=== PATIENT | male | born 1955 | race Caucasian/White ===

== ENCOUNTER → 2019-07-19 11:52 | Outpatient (BNVA) | payer MEDICARE, SELFPAY | PROVIDERS: Family Provider Electrodiagnostic Medicine; PCP Electrodiagnostic Medicine; Visit Provider Nurse Practitioner | DX: F33.0 Major depressive disorder, recurrent, mild (principal) | CPT/HCPCS: 99214 ==

== ENCOUNTER → 2019-08-25 07:41 | Outpatient (BNVA) | payer MEDICARE, SELFPAY | PROVIDERS: Family Provider Electrodiagnostic Medicine; PCP Electrodiagnostic Medicine; Visit Provider Nurse Practitioner | DX: F33.0 Major depressive disorder, recurrent, mild (principal) | CPT/HCPCS: 99214 ==

== ENCOUNTER → 2019-12-05 08:34 | Outpatient (BNVA) | payer MEDICARE, SELFPAY | PROVIDERS: Family Provider Electrodiagnostic Medicine; PCP Electrodiagnostic Medicine; Visit Provider Nurse Practitioner | DX: F33.0 Major depressive disorder, recurrent, mild (principal) | CPT/HCPCS: 99214 ==

== ENCOUNTER 2019-12-21 08:22 | Emergency (ER) | payer MEDICARE, SELFPAY ==
[2019-12-21] VITALS (8 sets, daily range): BP systolic 121–163; BP diastolic 68–88; PULSE 85–109; RESP 18–22; TEMP 37.4; O2SAT 91–100; BMI 34.2
--- NOTE | 2019-12-21 08:29 | ECG_ITS ---
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 Measurements Intervals [place] Rate: 87 P: [place]: -1 QRS: 30 QRSD: 142 T: 84 QT: 368 QTc: 444 Interpretive Statements UNCERTAIN REGULAR RHYTHM RIGHT BUNDLE BRANCH BLOCK [120+ ms QRS DURATION, UPRIGHT V1, 40+ ms S IN I/aVL/V4/V5/V6] Compared to ECG 12/07/2018 13:12:47 Sinus rhythm no longer present Ventricular premature complex(es) no longer present Electronically Signed On 12-21-2019 20:19:36 CDT by Moreno Mca M.D. [email or web address]
--- NOTE | 2019-12-21 08:29 | XR_ITS ---
WS: [id number] EXAM: AP CHEST: PORTABLE UPRIGHT DATE OF EXAM: 12/21/2019, 0832 hours COMPARISON: Chest x-ray from 10/03/2018 HISTORY: Patient is 64 years old with shortness of breath for the last day.. FINDINGS: The cardiac silhouette is stable and within normal limits. The mediastinal contours are similar. The pulmonary vascularity is normal. Chronic lung changes are demonstrated. Slight peribronchial cu ffing suggesting chronic bronchitis is seen bilaterally. Lungs are clear of consolidation. There is no effusion or pneumothorax. No acute bony abnormality is seen. XR/XR chest 1V portable [id number] IMPRESSION: Slight chronic lung changes seen. No consolidating infiltrate.
[2019-12-21 08:38] LABS: Basophils % 0.2 %; Eosinophils # 0.1 10^3/uL (0.0-0.8); Eosinophils % 0.7 %; Hematocrit 39.4 % (42.0-52.0); Hemoglobin 12.3 g/dL (11.7-16.6); Lymphocytes # 0.3 10^3/uL (0.8-4.8); Lymphocytes % 1.9 %; Mean Corpuscular HGB Conc 31.2 g/dL (30.0-36.0); Mean Corpuscular Hemoglobin 29.2 pg (28.0-34.0); Mean Corpuscular Volume 93.6 fL (80-94); Mean Platelet Volume 9.7 fL (7.4-10.4); Monocytes # 0.4 10^3/uL (0.2-0.9); Neutrophils # 12.27 10^3/uL (1.8-7.7); Nucleated Red Blood Cells % 0 %; Platelet Count 321 10^3/cmm (130-400); Red Blood Count 4.21 10^6/uL (4.1-5.3); Red Cell Distribution Width 12.4 % (12.1-15.1); White Blood Count 13.1 10^3/uL (4.0-10.0)
[2019-12-21 09:01] LABS: Alanine Aminotransferase 13 U/L (0-41); Albumin Level 4.5 g/dL (3.5-5.2); Alkaline Phosphatase 50 IU/L (40-130); Anion Gap 17.3 (5-19); Aspartate Amino Transferase 13 U/L (0-40); Blood Urea Nitrogen 23 mg/dL (8-23); Calcium 9.1 mg/dL (8.5-10.5); Carbon Dioxide 26 mmol/L (22-29); Chloride 94 mmol/L (98-107); Globulin 3.2 g/dL (1.3-4.6); Glomerular Filtration Rate 51.4 mL/min (90-130); Glucose 288 mg/dL (65-115); Osmolality Calculated 283 mOsm/kg (285-295); Potassium 4.3 mmol/L (3.5-5.1); Sodium 133 mmol/L (136-145); Total Bilirubin 0.7 mg/dL (0.15-1.2); Total Protein 7.7 g/dL (6.6-8.7)
--- NOTE | 2019-12-21 09:22 | ED_ITS ---
HPI - SOB/Dyspnea General: Chief Complaint: Shortness of Breath/Dyspnea Stated Complaint: SHORTNESS OF BREATH Time Seen by Provider: 12/21/19 08:28 History of Present Illness: HPI Narrative: 84-year-old male presents emergency room with complaint of shortness of breath that began yesterday. He is chronically on oxygen at 2 L/min he is resting in bed with his sats normal on that rate. He states this began yesterday after he been working outside for a time he has not noticed any change in his baseline cough or sputum production or character of sputum. Patient seen his primary care doctor Dr. Horn yesterday. He denies any chest pain. Patient reports a T-max at home of 103 in triage he was at 99. He does report having had diarrhea for the last week. MD elicited complaint: shortness of breath and cough Pertinent past history: COPD Onset (ago): week(s) (1) Timing: constant Severity: moderate Exacerbating factors: exertion and coughing Relieving factors: oxygen, rest and bronchodilators Known history of: COPD Associated symptoms: Reports chest congestion, cough, fever(s), nausea and vomiting; Deny abdominal pain, chest pain, diaphoresis, hemoptysis, orthopnea, palpitations or syncope Treatment prior to arrival: oxygen and bronchodilator Review of Systems Const: Reports: fever(s); Denies: diaphoresis ENMT: Denies: throat pain, ear or mastoid pain, nasal discharge or nasal congestion Card: Denies: chest pain, palpitations, syncope or orthopnea Resp: Reports: chest congestion; Denies: hemoptysis GI: Reports: nausea and vomiting; Denies: abdominal pain : Denies: flank pain, dysuria, urinary frequency or urinary urgency Skin/Breast: Denies: rash or pruritus PFS ED PFSH: Medical History (Updated 12/26/19 @ 06:06 by Gio Logan DO) COPD (chronic obstructive pulmonary disease) Coronary artery disease Diabetes mellitus Major depressive disorder, recurrent, mild Peripheral artery disease Surgical History (Updated 12/26/19 @ 06:06 by Gio Logan DO) History of bilateral hip arthroplasty S/P percutaneous transluminal angioplasty ([employer]) with stent placement Social History (Updated 07/19/19 @ 11:57 by Devora Christopher LPN) Smoking and tobacco status: former smoker Physical Exam Const: COMMON NORMALS: no acute distress GENERAL APPEARANCE: cooperative and comfortable ORIENTATION/CONSCIOUSNESS: Yes awake, Yes oriented to person, Yes oriented to place and Yes oriented to time HENMT: COMMON NORMALS: normocephalic, atraumatic, hearing grossly normal bilaterally, moist oral mucous membranes and oropharynx normal HEAD & SCALP: normocephalic and atraumatic Eye: COMMON NORMALS: Equal, round and reactive pupils present, EOMs intact bilaterally, conjunctivae normal and no scleral icterus CONJUNCTIVA: Yes conjunctivae normal PUPIL: Yes Equal, round and reactive pupils present Neck/C-Spine: COMMON NORMALS: full ROM, no lymphadenopathy, supple and no JVD Lymph: LYMPHATIC: no lymphadenopathy noted and no lymphedema noted Resp: AUSCULTATION: wheezes Cardio: COMMON NORMALS: no JVD, regular rate, regular rhythm and No murmurs present (Cardio) RATE: regular rate RHYTHM: regular rhythm GI: COMMON NORMALS: Soft to palpation and No hepatosplenomegaly present AUSCULTATION: Yes normoactive bowel sounds PALPATION: Yes Soft to palpation, No Tenderness to palpation present (GI), No Guarding due to palpation present (GI) and Yes No hepatosplenomegaly present Extremity: COMMON NORMALS: normal to inspection, capillary refill normal, no clubbing, cyanosis or edema, no calf tenderness and no pedal edema Neuro: SENSORIUM/ORIENTATION: Yes oriented to person, Yes oriented to place and Yes oriented to time Skin: COMMON NORMALS: no rashes or lesions noted GENERAL SKIN EXAM: no rashes or lesions noted Course Vital Signs: Vital signs: Vital Signs Temperature 99.4 F 12/21/19 08:26 Pulse Rate 87 12/21/19 13:07 Respiratory Rate 18 12/21/19 13:07 Blood Pressure 121/68 12/21/19 13:07 Pulse Oximetry 96 12/21/19 13:07 MDM - SOB/Dyspnea MDM Narrative: Medical decision making narrative: Reviewed findings with the patient. His oxygen saturation is well-maintained we will go ahead and treat him for an acute exacerbation of COPD discharge home with doxycycline and Medrol Dosepak and albuterol inhaler if worsening symptoms return to the emergency [facility] Lab Data: Attestation: I reviewed the patient's lab results. Labs: Lab Results 12/21/19 12/21/19 12/21/19 Range/Units 07:45 07:45 07:45 WBC 13.1 H (4.0-10.0) 10^3/ uL RBC 4.21 (4.1-5.3) 10^6/u L Hgb 12.3 (11.7-16.6) g/dL Hct 39.4 L (42.0-52.0) % MCV 93.6 (80-94) fL MCH 29.2 (28.0-34.0) pg MCHC 31.2 (30.0-36.0) g/dL RDW 12.4 (12.1-15.1) % Plt Count 321 (130-400) 10^3/c mm MPV 9.7 (7.4-10.4) fL Neut % (Auto) 94.0 % Lymph % (Auto) 1.9 % [place] % (Auto) 3.0 % Eos % (Auto) 0.7 % Baso % (Auto) 0.2 % Neut # (Auto) 12.27 H (1.8-7.7) 10^3/u L Lymph # (Auto) 0.3 L (0.8-4.8) 10^3/u L [place] # (Auto) 0.4 (0.2-0.9) 10^3/u L Eos # (Auto) 0.1 (0.0-0.8) 10^3/u L Baso # (Auto) 0.0 (0.0-0.1) 10^3/u L Nucleated RBC % (a uto) 0 % Nucleated RBCs # 0.0 /100WBC D-Dimer 0.76 H (0-0.59) ug/mIFE U Sodium 133 L (136-145) mmol/L Potassium 4.3 (3.5-5.1) mmol/L Chloride 94 L (98-107) mmol/L Carbon Dioxide 26 (22-29) mmol/L Anion Gap 17.3 (5-19) BUN 23 (8-23) mg/dL Creatinine 1.4 H (0.7-1.2) mg/dL GFR Calculation 51.4 L (90-130) mL/min Glucose 288 H (65-115) mg/dL Calculated Osmolal ity 283 L (285-295) mOsm/k g Calcium 9.1 (8.5-10.5) mg/dL Total Bilirubin 0.7 (0.15-1.2) mg/dL AST 13 (0-40) U/L ALT 13 (0-41) U/L Alkaline Phosphata se 50 (40-130) IU/L Lactate Dehydrogen ase (135-225) U/L Total Protein 7.7 (6.6-8.7) g/dL Albumin 4.5 (3.5-5.2) g/dL Globulin 3.2 (1.3-4.6) g/dL SARS-CoV-2 Ag (Rap id) (Negative) 12/21/19 12/21/19 Range/Units 07:45 09:40 WBC (4.0-10.0) 10^3/ uL RBC (4.1-5.3) 10^6/u L Hgb (11.7-16.6) g/dL Hct (42.0-52.0) % MCV (80-94) fL MCH (28.0-34.0) pg MCHC (30.0-36.0) g/dL RDW (12.1-15.1) % Plt Count (130-400) 10^3/c mm MPV (7.4-10.4) fL Neut % (Auto) % Lymph % (Auto) % [place] % (Auto) % Eos % (Auto) % Baso % (Auto) % Neut # (Auto) (1.8-7.7) 10^3/u L Lymph # (Auto) (0.8-4.8) 10^3/u L [place] # (Auto) (0.2-0.9) 10^3/u L Eos # (Auto) (0.0-0.8) 10^3/u L Baso # (Auto) (0.0-0.1) 10^3/u L Nucleated RBC % (a uto) % Nucleated RBCs # /100WBC D-Dimer (0-0.59) ug/mIFE U Sodium (136-145) mmol/L Potassium (3.5-5.1) mmol/L Chloride (98-107) mmol/L Carbon Dioxide (22-29) mmol/L Anion Gap (5-19) BUN (8-23) mg/dL Creatinine (0.7-1.2) mg/dL GFR Calculation (90-130) mL/min Glucose (65-115) mg/dL Calculated Osmolal ity (285-295) mOsm/k g Calcium (8.5-10.5) mg/dL Total Bilirubin (0.15-1.2) mg/dL AST (0-40) U/L ALT (0-41) U/L Alkaline Phosphata se (40-130) IU/L Lactate Dehydrogen ase 195 (135-225) U/L Total Protein (6.6-8.7) g/dL Albumin (3.5-5.2) g/dL Globulin (1.3-4.6) g/dL SARS-CoV-2 Ag (Rap id) Negative (Negative) Imaging Data^: CXR: Radiologist's impression: EXAM: AP CHEST: PORTABLE UPRIGHT DATE OF EXAM: 12/21/2019, 0832 hours COMPARISON: Chest x-ray from 10/03/2018 HISTORY: Patient is 64 years old with shortness of breath for the last day.. FINDINGS: The cardiac silhouette is stable and within normal limits. The mediastinal contours are similar. The pulmonary vascularity is normal. Chronic lung changes are demonstrated. Slight peribronchial cuffing suggesting chronic bronchitis is seen bilaterally. Lungs are clear of consolidation. There is no effusion or pneumothorax. No acute bony abnormality is seen. XR/XR chest 1V portable [id number] IMPRESSION: Slight chronic lung changes seen. No consolidating infiltrate. Dictated By:Alvaro Mason MD Discharge Plan Discharge Patient Disposition: Home Clinical Impression: Acute exacerbation of chronic obstructive airways disease Condition: Stable Prescriptions: New doxycycline hyclate 100 mg capsule 100 mg PO BID 10 Days Qty: 20 RF: 0 Medrol (Zack) 4 mg tablets,dose pack See Rx Instructions .ROUTE .COMPLEX Qty: 21 RF: 0 albuterol sulfate 90 mcg/actuation HFA aerosol inhaler 2 inh INHALATION Q4H PRN (Reason: shortness of breath or wheezing) Qty: 18 RF: 0 No Action levothyroxine 125 mcg tablet 125 mcg PO DAILY RF: 0 hydralazine 25 mg tablet 25 mg PO TID RF: 0 cilostazol 100 mg tablet 100 mg PO BID RF: 0 chlorthalidone 25 mg tablet 25 mg PO DAILY RF: 0 atorvastatin 40 mg tablet 40 mg PO DAILY RF: 0 metformin 1,000 mg tablet 1,000 mg PO BID RF: 0 metoprolol tartrate 25 mg tablet 25 mg PO BID RF: 0 glyburide micronized 3 mg tablet 3 mg PO DAILY RF: 0 amlodipine 10 mg tablet 10 mg PO DAILY RF: 0 aspirin [Adult Low Dose Aspirin] 81 mg tablet,delayed release (DR/EC) 81 mg PO DAILY RF: 0 clopidogrel 75 mg tablet 75 mg PO DAILY RF: 0 bupropion HCl [Wellbutrin XL] 150 mg tablet extended release 24 hr 150 mg PO QAM Qty: 90 RF: 0 sertraline [Zoloft] 100 mg tablet 150 mg PO DAILY Qty: 135 RF: 0 Discharge Orders: Discharge Order (Routine); Ordered 12/21/19 Ordered By: Gio Logan Referrals: Brendan Horn DO [Primary Care Provider] - Discharge Diet: Usual diet Discharge Activity: Increase activity as tolerated Activity Restrictions/Additional Instructions: Follow-up with your regular doctor in the next 4 to 5 days. Discharge Date/Time: 12/21/19 13:08 Coding Level of Care Code ED Field Clinical Engineer for Crystal Junior
[2019-12-21 10:47] LABS: SARS Covid-2 Antigen Negative (Negative)
[2019-12-21 11:31] LABS: D Dimer 0.76 ug/mIFEU (0-0.59)
[2019-12-21] MEDS: sodium chloride 0.9% 1,000 ML 999 ML IV (11:57)
[2019-12-21 12:02] LABS: Lactate Dehydrogenase 195 U/L (135-225)
[2019-12-21] MEDS: ipratropium-albuterol 3 mL Neb INHALATION (12:03)
== END 2019-12-21 13:08 | disposition home or self-care (01) ==
PROVIDERS: Emergency Provider Family Medicine; PCP Electrodiagnostic Medicine
DX: J44.1 Chronic obstructive pulmonary disease with (acute) exacerbation (principal); Z79.82 Long term (current) use of aspirin; Z79.02 Long term (current) use of antithrombotics/antiplatelets; Z79.84 Long term (current) use of oral hypoglycemic drugs; I25.10 Atherosclerotic heart disease of native coronary artery without angina pectoris; E11.9 Type 2 diabetes mellitus without complications; Z87.891 Personal history of nicotine dependence
CPT/HCPCS: 12345; 71045; 80053; 83615; 85025; 85378; 87426; 93005; 94640; 96361; 96374; 96375; 99283; 99284; J2930; J7030

== ENCOUNTER → 2019-12-28 07:58 | Outpatient (BNVA) | payer MEDICARE, SELFPAY | PROVIDERS: PCP Electrodiagnostic Medicine; Visit Provider Nurse Practitioner | DX: F33.0 Major depressive disorder, recurrent, mild (principal) | CPT/HCPCS: 99214 ==

== ENCOUNTER → 2020-03-19 07:35 | Outpatient (BNVA) | payer MEDICARE, SELFPAY | PROVIDERS: PCP Electrodiagnostic Medicine; Visit Provider Nurse Practitioner | DX: F33.0 Major depressive disorder, recurrent, mild (principal); F90.2 Attention-deficit hyperactivity disorder, combined type | CPT/HCPCS: 99214 ==

== ENCOUNTER 2020-07-31 11:50 | Outpatient (CLI) | payer MEDICARE, SELFPAY ==
--- NOTE | 2020-07-31 11:58 | XR_ITS ---
WS: [id number] PROCEDURE: XR chest 2V* [id number] CLINICAL INFORMATION: CAD, LUNG NODULE, PVD, DIABETES COMPARISON: December 21, 2019 FINDINGS: Heart: Normal cardiac silhouette. Lungs: Mild chronic emphysematous changes. No acute pulmonary infiltrates. Chronic elevation left hem idiaphragm is unchanged. Bones: Hypertrophic changes thoracic spine. XR/XR chest 2V* [id number] IMPRESSION: No acute chest findings and no significant changes since December 21, 2019
== END 2020-07-31 11:51 | disposition home or self-care (01) ==
PROVIDERS: PCP Electrodiagnostic Medicine; Visit Provider Electrodiagnostic Medicine
DX: I25.10 Atherosclerotic heart disease of native coronary artery without angina pectoris (principal); R91.1 Solitary pulmonary nodule; I73.9 Peripheral vascular disease, unspecified; E11.9 Type 2 diabetes mellitus without complications
CPT/HCPCS: 71046

== ENCOUNTER → 2021-03-07 08:01 | Outpatient (BNVA) | payer MEDICARE, SELFPAY | PROVIDERS: PCP Electrodiagnostic Medicine; Visit Provider Nurse Practitioner | DX: F33.0 Major depressive disorder, recurrent, mild (principal) | CPT/HCPCS: 99214 ==

== ENCOUNTER → 2021-07-10 10:58 | Outpatient (BNVA) | payer MEDICARE, SELFPAY | PROVIDERS: PCP Electrodiagnostic Medicine; Visit Provider Internal Medicine Cardiovascular Disease | DX: I11.0 Hypertensive heart disease with heart failure (principal); R06.02 Shortness of breath; J44.9 Chronic obstructive pulmonary disease, unspecified; J45.909 Unspecified asthma, uncomplicated | CPT/HCPCS: 82103; 82785; 86003; 99204; 99215 ==

== ENCOUNTER 2021-07-10 12:35 | Outpatient (CLI) | payer MEDICARE, SELFPAY ==
--- NOTE | 2021-07-10 | XR_ITS ---
WS: [id number] Left hand, 3 views, 07/10/2021 Clinical Data: LEFT HAND PAIN Comparison: Left wrist, 07/22/2017. Findings: No fractures or dislocations are seen. The soft tissues are unremarkable. The joint spaces are normal XR/XR hand LT min 3V* [id number] Impression: Negative left hand.
== END 2021-07-10 12:36 | disposition home or self-care (01) ==
LOC: RADOUTREAD 07-11 12:37
PROVIDERS: PCP Electrodiagnostic Medicine; Visit Provider Electrodiagnostic Medicine
DX: Z53.9 Procedure and treatment not carried out, unspecified reason (principal)
CPT/HCPCS: 85025

== ENCOUNTER 2021-07-10 13:36 | Outpatient (CLI) | payer MEDICARE, SELFPAY | END 2021-07-10 13:37 | disposition home or self-care (01) | LOC: LAB 13:40 | PROVIDERS: PCP Electrodiagnostic Medicine | DX: R06.02 Shortness of breath (principal); J44.9 Chronic obstructive pulmonary disease, unspecified; J45.909 Unspecified asthma, uncomplicated | CPT/HCPCS: 82103; 82785; 86003 ==

== ENCOUNTER 2021-09-23 11:39 | Outpatient (CLI) | payer MEDICARE, SELFPAY ==
--- NOTE | 2021-09-23 | CT_ITS ---
WS: [id number] CT CHEST WITHOUT INTRAVENOUS CONTRAST HISTORY: follow up on pulmonary nodule TECHNIQUE: Contiguous 5 mm axial imaging performed on the thorax. Coronal and sagittal reformats are submitted. All CT scans at [facility] use at least one of these dose optimization techniques: automated exposure control; mA and/or kV adjustment per patient size (includes targeted exams where dose is matched to clinical indication); or iterative reconstruction. CONTRAST: 10/06/2016 DLP: 766.04 mGy.cm COMPARISON: 10/08/2016 Lungs and central airway: Mild hyperinflation. Again noted is the 5 mm pulmonary nodule in the RIGHT middle lobe which is unchanged. No new mass or nodule. Pleura: Normal. No pleural effusion. Heart and pericardium: Normal size heart with no pericardial effusion. Mediastinum and sonia: No mediastinum or hilar adenopathy. Vessels: Mild atherosclerosis aorta. Pulmonary arteries. Slightly enlarged. Coronary artery calcifica tions. Chest wall and lower neck: No soft tissue masses. Upper abdomen: Hepatic steatosis. No adrenal mass. Osseous structures: Mild spondylosis. CT/CT chest wo con [id number] IMPRESSION: 1. Long-term stability 5 mm pulmonary nodule RIGHT middle lobe. No new pulmona ry nodule or pneumonia. 2. No adenopathy. 3. Moderate coronary artery atherosclerosis. 4. Mild pulmonary hypertension.
--- NOTE | 2021-09-23 11:51 | CT_ITS ---
WS: [id number] CT ANGIOGRAPHY OF THE ABDOMINAL AORTA WITH RUNOFF TO THE ANKLES HISTORY: PAD/INTERMITTENT CLAUDICATION/C HF/ PVD /HTN TECHNIQUE: Arterial injection is performed during imaging to evaluate the aorta and runoff vessels to the ankles. MIP and volume rendering imaging has also been performed. All images are reviewed. All C T scans at [facility] use at least one of these dose optimization techniques: automated exposu re control; mA and/or kV adjustment per patient size (includes targeted exams where dose is matched t o clinical indication); or iterative reconstruction. Contrast: Omnipaque 300; 95 mL IV. DLP: 1006.90 mGy.cm COMPARISON: 11/03/2016 Lung bases are clear. Normal size heart. Small hiatal hernia. Mildly enlarged liver with hepatic stea tosis. Mildly contracted gallbladder. Normal size spleen. No adrenal mass. Normal pancreas. Mild atro phy and cortical thinning of each kidney with a few areas of scarring. Stable cyst RIGHT kidney. Abdominal aorta: Atherosclerotic plaque with no aneurysm. Focal area of moderate stenosis at the bifu rcation. Very minimal narrowing of the origin of celiac axis and SMA due to plaque. Small caliber luz al arteries but they are patent. Accessory renal artery on the RIGHT. Mild stenosis origin of the DINAH . RIGHT lower extremity arterial system: Scattered plaque throughout the common and internal iliac julianne ry. 50% stenosis of the RIGHT common iliac artery similar to the prior study. Additional plaque begin s in the femoral artery with at least 60 % stenosis at the SFV. Also similar to the prior study. SFA and deep profunda are both patent. Scattered plaque within the mid SFA. Multifocal areas of 50% steno sis near Matthew's canal. Minimal plaque at the popliteal artery. Intermittently visualized anterior t ibial artery. Small caliber but patent peroneal and posterior tibial artery. LEFT lower extremity arterial system: Heavy calcified plaque with mild to moderate stenosis in the co mmon iliac artery. 70% stenosis distal LEFT common iliac artery. Internal and external iliacs are pat ent with plaque. 50% stenosis distal common femoral artery. Scattered plaque throughout the proximal profunda and SFA. Multifocal areas of 40-50% stenosis in the SFA. Additional stenoses approaching 70% distal SFA near Matthew's canal. Multifocal areas of 50% stenosis. 50% stenosis in the popliteal julianne ry. Heavy calcified plaque at the tibioperoneal confluence. Intermittently visualized runoff to the a nkles. There is plaque and only intermittently visualized anterior and posterior tibial arteries. The most patent artery is the peroneal to the LEFT ankle. CT/CT angio abd aorta runof [id number] IMPRESSION: 1. Extensive bilateral moderate to severe areas of stenosis and plaque. Mild p rogression of disease since the prior study from 2017. 2. Moderate stenosis distal abdominal aorta bifurcation. 3. RIGHT common iliac artery stenosis 50% with additional plaque extending int o the proximal SFV of 60% stenosis. 4. Multifocal areas of 50% stenosis RIGHT Matthew's canal. 5. Small caliber but patent peroneal and posterior tibial artery on the RIGHT with heavily diseased and occluded anterior tibial artery. 6. 70% stenosis distal LEFT common iliac artery. 7. 50% stenosis LEFT common femoral artery. 8. 70% stenosis distal LEFT SFA at Matthew's canal with additional 50% stenosis . 9. 50% stenosis LEFT popliteal artery. 10. Small caliber runoff to the LEFT ankle by the peroneal artery. Heavily dis eased and occluded anterior posterior tibial arteries.
[2021-09-23 13:10] LABS: Anion Gap 13.6 (5-19); Blood Urea Nitrogen 18 mg/dL (8-23); Calcium 9.1 mg/dL (8.5-10.5); Carbon Dioxide 30 mmol/L (22-29); Chloride 98 mmol/L (98-107); Osmolality Calculated 309 mOsm/kg (285-295); Potassium 4.6 mmol/L (3.5-5.1); Sodium 137 mmol/L (136-145)
[2021-09-23 14:34] LABS: Glucose 517 mg/dL (65-115)
[2021-09-23] MEDS: iohexol 300 mg/mL 100 mL Btl IV (14:47)
== END 2021-09-23 11:40 | disposition home or self-care (01) ==
LOC: RAD 11:40
PROVIDERS: PCP Electrodiagnostic Medicine; Visit Provider Internal Medicine Cardiovascular Disease
DX: I70.0 Atherosclerosis of aorta (principal); I25.10 Atherosclerotic heart disease of native coronary artery without angina pectoris; I70.213 Atherosclerosis of native arteries of extremities with intermittent claudication, bilateral legs; I11.0 Hypertensive heart disease with heart failure; I50.9 Heart failure, unspecified; R91.1 Solitary pulmonary nodule
CPT/HCPCS: 71250; 75635; 80048

== ENCOUNTER → 2021-10-07 10:08 | Outpatient (BNVA) | payer MEDICARE, SELFPAY | PROVIDERS: PCP Electrodiagnostic Medicine; Visit Provider Internal Medicine Pulmonary Disease | DX: J44.9 Chronic obstructive pulmonary disease, unspecified (principal); J45.909 Unspecified asthma, uncomplicated; R91.1 Solitary pulmonary nodule; G47.33 Obstructive sleep apnea (adult) (pediatric); E11.65 Type 2 diabetes mellitus with hyperglycemia; Z87.891 Personal history of nicotine dependence; E78.5 Hyperlipidemia, unspecified; I10 Essential (primary) hypertension; I25.10 Atherosclerotic heart disease of native coronary artery without angina pectoris; E11.9 Type 2 diabetes mellitus without complications; I73.9 Peripheral vascular disease, unspecified | CPT/HCPCS: 36415; 80048; 83036; 85025; 85610; 99213; 99214 ==

== ENCOUNTER 2021-10-09 07:37 | Outpatient (CLI) | payer MEDICARE, SELFPAY ==
[2021-10-09] VITALS (87 sets, daily range): BP systolic 108–160; BP diastolic 47–77; PULSE 55–72; RESP 10–25; TEMP 36.6–36.8; O2SAT 90–96; BMI 35.9
--- NOTE | 2021-10-09 07:30 | XACV_ITS ---
Ht: 173 cm Wt: 107 kg BSA: 2.31 m2 Any Known Allergies: Other Gender: Male : 1955 Exam Type: Invasive Peripheral Vascular Procedure(s): Procedure Description: Peripheral Cath Diagnostic Procedure Procedure Description: Abdominal aortic angiography Procedure Description: Iliac arterial aortic angiography Procedure Description: Lower extremities' angiography Exam Priority: Routine Abdominal Diagnostic Findings Distal abdominal aorta: Patent. Lower Extremity Diagnostic Findings Right common iliac artery: Patent Right external iliac artery: Patent Right common femoral artery: Has moderate,40% calcified long stenosis Right SFA: Patent Right profunda: Patent Right popliteal artery: Patent Right anterior tibial artery: Occluded Right TP: Patent Right peroneal artery: Patent Right posterior tibial artery: Has moderate segmental stenosis however is patent. . Left common iliac artery: Patent Left external iliac artery: Has moderate disease Left common femoral artery: Patent Left SFA: Patent Left profunda artery: Patent Left popliteal artery: Patent Left anterior tibial artery: Occluded Left posterior tibial artery: Diffusely diseased. Occluded in the mid to distal segment. Left peroneal artery: Patent. Good collateral blood supply in other territories. . Indication: Bilateral lower extremity pain consistent with claudication. Conclusions Severe peripheral artery disease below the knee bilaterally. Right leg has two-vessel runoff to the foot. Left leg has single-vessel runoff to the foot. Recommendations Aggressive risk factor modification. Plan for medical therapy at this time. Exercise recommended. Outpatient cardiology follow-up in 4 weeks. Access Site Site: Right Femoral artery Sheath Size: 6 Fr Hemost... Method: Manual Compression Hemost... Success: Successful Procedure Details Findings Procedure Consent Obtained. Admit Source: Out Patient. Pre-Procedure Time Out. Identified patient by full name and date of as verbalized by the patient/guarantor. Does the consent match the physician's order: Yes. Accurate & Complete Informed Consent: Yes. Inpatient/Outpatient History & Physical on Chart: Yes. If H&P is completed, is and addenduem needed: No; If yes, is the addendum complete: N/A. Visualize and Verify Site with Patient/Guarantor: N/A. Relevant Radiology Images available: Yes. The risks, benefits, and alternatives of sedation and/or procedure were discussed by physician. The patient agrees to continue. Procedure started. PERRLA. Strong, equal hand stream control officer bilaterally. Lungs clear x 5 lobes. IV Site on Arrival: 20 gauge in the left anticubital. IV Fluids: 0.9% NaCl at KVO. 0 mL infused prior to geotechnical laboratory technician. Physician notified. Oxygen started at 2liters/min via nasal canula. Pre Procedural Pulses: bilateral dorsalis pedis was 1+. Pre Procedural Pulses: bilateral posterior tibial was 1+. bilateral groins was prepped with chloroprep then draped in the usual sterile fashion. Baseline sample Acquired. HR: 58 BPM. Physician arrived. Physician scrubbed in. Immediate Pre-Procedure Time Out. Correct Patient: Yes; Correct Procedure: Yes; Correct Site: Yes; Correct Patient Position: Yes; Correct Supplies: Yes; Dried Flammable Prep: Yes; Blood Products Available: No;. Lidocaine 1% infiltrated to the right groin. Arterial access obtained with micropuncture set. 5 fr UF catheter in over standard wire. Pigtail postioned above the bifurcation of the iliacs. Aortagram performed @ 10 mL/sec for a total of 30 mL. Glidewire advanced through UF catheter. UF catheter positioned to left external iliac. Glidewire out. Left external iliac selected and arteriogram with runoff performed @ 10 mL/sec for a total of 30 mL. Left external iliac selected and arteriogram with runoff performed @ 10 mL/sec for a total of 30 mL, DSA. Angiography performed. Pigtail repositioned to distal aorta above bifurcation of iliacs, angiography performed. Glidewire advanced through UF catheter. UF catheter out. Glidewire out. Sheath injected in Right common femoral artery and runoff performed of right leg. Sheath injected in Right common femoral artery and runoff performed, DSA. Total IV fluids: 57 mL. Medication's Wasted: Heparin = 1000 unit. Medication's Wasted: Other = Fentanyl 50 mcg. Medication's Wasted: Other = Versed 1 mg. Post Procedure: Pulses reassessed and unchanged. PERRLA. Strong, equal hand stream control officer bilaterally. No VTE prophylaxis required. Post-op diagnosis: Severe bilateral below the knee peripheral arterial disease. Complications: None. Estimated blood loss: 5mL-10mL. Responsiveness - Normal response to verbal stimuli; alert and oriented, PERRLA. Airway - Unaffected, no intervention required; spontaneous ventilation. Circulation: W/N/L, pulses unchanged. Nausea/Vomiting: No. A Manual Compression was successful obtaining hemostatsis at the Right Femoral artery insertion site. Procedure completed. Patient transferred by bed to 1st floor. Vital chart was stopped. Procedure Medications Start: 10:13 AM Stop: 10:13 AM Medication: Versed Amount: 1 mg Route: I.V. Start: 10:13 AM Stop: 10:13 AM Medication: Fentanyl Amount: 50 mcg Route: I.V. Start: 10:23 AM Stop: 10:23 AM Medication: Versed Amount: 1 mg Route: I.V. Start: 10:35 AM Stop: 10:35 AM Medication: Versed Amount: 1 mg Route: I.V. I, the attending physician, have reviewed and verified all procedure medications. Yes, all medications given per verbal order History/Risk Factors Hypertension: Yes Dyslipidemia: No Peripheral Arterial Disease (PAD): Yes Obesity: No Renal Disease: No Tobacco Use: Former Prior Interventions PCI: No CABG: No Valve Surgery: No Report Signatures Finalized by Live Panda MD on 10/19/2021 11:28 PM
[2021-10-09] MEDS: diphenhydrAMINE 50 mg Capsule PO (08:14)
[2021-10-09 08:43] LABS: Glucose Point of Care 295 mg/dL (70-110)
--- NOTE | 2021-10-09 10:14 | W.PM.OPSUD ---
Surgery/Procedure H&P Update DATE OF PROCEDURE: October 09, 2021 DATE H&P PERFORMED: 10/07/21 H&P UPDATE INFORMATION: I have reviewed H&P completed within last 30 days, I have examined patient prior to procedure and No changes to prior documentation PREOP DIAGNOSIS: Life syle limiting claudication/ PAD PRIMARY INDICATION FOR PROCEDURE: Lifestyle limiting claudication/ PAD PLANNED PROCEDURE: Operation Date: 10/09/21 08:30 Proposed Procedures p Peripheral Diagnostic(Bilateral) - Live Panda M.D Possible percutaneous intervention PATIENT REASSESSED PRIOR TO SEDATION, WITH NO CHANGE NOTED: Yes PHYSICAL EXAM: alert, oriented x 3, clear to auscultation bilaterally and regular rate & rhythm AIRWAY EVAL/ANESTHESIA PLAN: ASA III, Local Anesthesia, Risks, benefits & alternatives of sedation and/or procedure discussed and Patient agrees to continue as planned ADDITIONAL INFORMATION: Moderate sedation
[2021-10-09 11:25] LABS: Glucose Point of Care 264 mg/dL (70-110)
[2021-10-09] MEDS: insulin lispro 100 unit/1 mL SUBCUT ×2 (12:00→17:16)
[2021-10-09] MEDS: sodium chloride 0.9% 1,000 ML 100 ML IV (12:07)
--- NOTE | 2021-10-09 12:12 | PC.NURSE ---
received from cardiac laborer syrup machine via bed at 1110.report received.pt is drowsy but easily awakened.alert and oriented x 3.sr with occas pvc on monitor.denies pain at present.right femoral arterial sheath was pulled in laborer syrup machine.right groin with drsg dry and intact.no hematoma noted.right leg is warm to touch and with brisk capillary refill.palpable dp pulse noted.instructed in activity restrictions s/p femoral artery procedure...and instructed to notify staff for any bleeding,pain,numbness,sob..or for any concerns at all.pt verb understanding of instructions.
[2021-10-09 17:03] LABS: Glucose Point of Care 211 mg/dL (70-110)
--- NOTE | 2021-10-09 18:40 | PC.NURSE ---
right groin drsg remains dry and intact.no hematoma formation noted
--- NOTE | 2021-10-09 19:00 | PC.NURSE ---
Right groin site dressing is dry and intact. Site is soft to the touch, no hematoma present. Right leg is warm to the touch, brisk capillary refill. Pedal pulses are palpable. Patient reports normal sensation to bilateral lower legs.
[2021-10-09] MEDS: acetaminophen 325 mg Tablet 650 MG PO (20:22)
[2021-10-09 20:44] LABS: Glucose Point of Care 192 mg/dL (70-110)
--- NOTE | 2021-10-09 20:52 | PC.NURSE ---
Addendum entered by Giuliana Solitario RN 10/09/21 23:52: Right groin site is dry and intact. No hematoma present, site is soft, brisk capillary refill. DP pulses are palpable. Original Note: Called and spoke with with Cardiology regarding patients home medications were not ordered. Patients takes metoprolol and cilostazol at night time. ordered to give one time dose of metoprolol tonight and hold cilostazol. Medications can be adressed when Cardiology rounds tomorrow.
[2021-10-09] MEDS: metoprolol tartrate 25 mg Tablet PO (21:53)
--- NOTE | 2021-10-09 23:49 | PC.NURSE ---
Right groin dressing is dry and intact. No hematoma noted, skin is soft to palpation. Right leg is warm to the touch, brisk capillary refill, and bilateral dorsal pedal pulses are palpable. Patient reports normal sensation in bilateral lower legs.
--- NOTE | 2021-10-10 02:00 | PC.NURSE ---
Right groin site dressing is dry and intact. No hematoma present. capillary refill < 3sec. Site is soft and pedal pulses palpable.
[2021-10-10 05:37] VITALS: PULSE 56
[2021-10-10 06:34] LABS: Glucose Point of Care 117 mg/dL (70-110)
[2021-10-10 07:49] VITALS: PULSE 72; O2SAT 96
[2021-10-10] MEDS: acetaminophen 325 mg Tablet 650 MG PO (08:13)
--- NOTE | 2021-10-10 09:09 | PM.SDS ---
Short Stay Summary Providers Date of Admit/Discharge: 10/09/21 Attending Provider: Live Panda M.D Primary Care Provider: Brendan Horn DO Chief Complaint: 65077 i73.9 HPI History of Present Illness Emerson Monique is a 66 year old male with past medical history coronary artery disease, PCI of the RCA in 2017 and PAD.? He has been having significant claudication symptoms bilaterally. CTA showed extensive disease bilaterally. Plan for peripheral angiogram. Review of Systems Const: Denies: fever(s), chills, change in weight, fatigue or diaphoresis Eyes: Denies: change in vision or eye redness ENMT: Denies: throat pain, odynophagia, mouth pain or epistaxis Card: Reports: swelling of feet/ankles, lightheadedness and dyspnea on exertion; Denies: chest pain, palpitations, irregular heart rhythm, edema, syncope, pre-syncope, orthopnea or leg pain with exertion Resp: Denies: dyspnea, productive cough or wheezing GI: Denies: nausea, vomiting, hematemesis, hematochezia or melena : Denies: hematuria Musc: Denies: extremity swelling or joint pain Skin/Breast: Denies: rash, pruritus, erythema or new lesions Neuro: Reports: dizziness (once with throbbing and seeing stars for a moment ); Denies: numbness in extremities, weakness in extremities, sensory changes, frequent falls, Slurred speech present or difficulty communicating thoughts Psych: Denies: anxiety, depression, irritability, suicidal ideation or homicidal ideation Endo: Denies: polyuria, polydipsia or excessive sweating Jason/Lymph: Denies: easy bruising or easy bleeding Home Meds/Allergies Home Medications and Allergies Home Medications Medication Instructions Recorded Confirmed Type amlodipine 10 mg tablet 10 mg PO DAILY 06/16/19 10/21/21 History aspirin 81 mg tablet,delayed 81 mg PO DAILY 06/16/19 10/21/21 History release (Adult Low Dose Aspirin) atorvastatin 40 mg tablet 40 mg PO DAILY 06/16/19 10/21/21 History cilostazol 100 mg tablet 100 mg PO BID 06/16/19 10/21/21 History clopidogrel 75 mg tablet 75 mg PO DAILY 06/16/19 10/21/21 History glyburide micronized 3 mg tablet 3 mg PO DAILY 06/16/19 10/21/21 History levothyroxine 125 mcg tablet 125 mcg PO DAILY 06/16/19 10/21/21 History metformin 1,000 mg tablet 1,000 mg PO BID 06/16/19 10/21/21 History metoprolol tartrate 25 mg tablet 25 mg PO BID 06/16/19 10/21/21 History nitroglycerin 0.4 mg sublingual 0.4 mg SUBLINGUAL Q5M PRN 07/10/21 10/21/21 History tablet (Nitrostat) sertraline 100 mg tablet (Zoloft) 100 mg PO DAILY tab 07/10/21 10/21/21 History semaglutide (Ozempic) mg SUBCUT 10/07/21 10/21/21 History tamsulosin 0.4 mg PO DAILY 10/08/21 10/21/21 History bupropion HCl 150 mg tablet,12 hr 150 mg PO DAILY 10/21/21 10/21/21 History sustained-release (Wellbutrin SR) Allergies Allergy/AdvReac Type Severity Reaction Status Date / Time lisinopril Allergy Unknown Verified 10/21/21 12:43 PFSH Acute PFSH: Medical History Benign essential hypertension Bilateral carotid artery stenosis CHF (congestive heart failure) COPD (chronic obstructive pulmonary disease) Coronary artery disease Diabetes mellitus Major depressive disorder, recurrent, mild Mixed hyperlipidemia Peripheral artery disease PVD (peripheral vascular disease) Surgical History History of bilateral hip arthroplasty Hx of shoulder surgery 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 Family History Mother CAD (coronary artery disease) Diabetes Father CAD (coronary artery disease) Denies family history of Clotting disorder Anesthesia complication Bleeding disorder Social History Smoking and tobacco status: former smoker Quit status (tobacco): has quit using tobacco Year quit tobacco: age 26 Former quit date comment: 1ppd x 3years Alcohol intake: never Vitals/I&O/Wt Last Vital Signs Temp 97.8 F 10/09/21 23:38 Pulse 72 10/10/21 07:49 Resp 17 10/09/21 23:38 BP 160/77 10/09/21 23:38 Pulse Ox 96 10/10/21 07:49 10/09/21 10/10/21 10/10/21 22:59 06:59 14:59 Intake Total 1240 / 1480 Output Total 950 / 950 900 / 1850 Balance 290 / 530 -900 / -370 Weight last 48 hrs Weight 236 lb Physical Exam Narrative: GENERAL: Patient is alert, awake and oriented x3. [] NECK: No jugular vein distension. [] HEENT: No cyanosis. No icterus. No pallor. [] HEART: Regular S1 and S2. No murmur, rub or gallop. [] LUNGS: Clear to auscultate bilaterally. [] ABDOMEN: Soft, nontender and nondistended. Positive bowel sounds. No guarding, rebound or tenderness. [] CENTRAL NERVOUS SYSTEM: Grossly nonfocal. [] EXTREMITIES: Diminished pulses bilaterally Hospital Course Hospital Course Emerson Monique is a 66 year old male with past medical history coronary artery disease, PCI of the RCA in 2017 and PAD.? He has been having significant claudication symptoms bilaterally. CTA showed extensive disease bilaterally. Patient was scheduled to undergo peripheral angiogram. He had moderate disease seen in left common iliac artery. Also had moderate disease in the right common femoral artery. He had significant disease below the knee. Medical therapy was decided. As he had vascular complications with prior procedures, decision was made to observe him overnight. He did well without any complications. 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 Routin e Exams 10/09/21 07:30 Taken Procedures Performed: Peripheral angiogram Discharge Plan Discharge Patient Disposition: Home Prescriptions: Continued sertraline [Zoloft] 100 mg tablet 100 mg PO DAILY 0RF nitroglycerin [Nitrostat] 0.4 mg tablet, sublingual 0.4 mg sublingual Q5M PRN (Reason: Chest Pain) 0RF Rx Instructions: do not exceed 3 doses per episode chlorthalidone 25 mg tablet 50 mg PO DAILY Qty: 90 3RF levothyroxine 125 mcg tablet 125 mcg PO DAILY 0RF cilostazol 100 mg tablet 100 mg PO BID 0RF atorvastatin 40 mg tablet 40 mg PO DAILY 0RF metoprolol tartrate 25 mg tablet 25 mg PO BID 0RF glyburide micronized 3 mg tablet 3 mg PO DAILY 0RF amlodipine 10 mg tablet 10 mg PO DAILY 0RF aspirin [Adult Low Dose Aspirin] 81 mg tablet,delayed release (DR/EC) 81 mg PO DAILY 0RF clopidogrel 75 mg tablet 75 mg PO DAILY 0RF budesonide-formoterol [Symbicort] 80-4.5 mcg/actuation HFA aerosol inhaler 2 puff inhalation BID Qty: 10.2 3RF Ozempic 0.25 mg or 0.5 mg(2 mg/1.5 mL) pen injector SUBCUT 0RF albuterol sulfate 90 mcg/actuation HFA aerosol inhaler 2 inh INHALATION Q4H PRN (Reason: shortness of breath or wheezing) Qty: 18 0RF tamsulosin 0.4 mg tablet 0.4 mg PO DAILY 0RF Held metformin 1,000 mg tablet 1,000 mg PO BID 0RF Hold Instructions: Resume on 10/12/21. No Action bupropion HCl [Wellbutrin SR] 150 mg tablet sustained-release 12 hr 150 mg PO DAILY 0RF Discharge Orders: Discharge Order (Routine); Ordered 10/10/21 Ordered By: Live Panda Referrals: Krys Young FNP [Nurse Practitioner] - 10/21/21 1:15 pm Yesica Madrigal MD [Physician] - 01/15/22 1:45 pm Diet: Diabetic Activity: Increase activity as tolerated Patient Instructions: Peripheral Vascular Angioplasty (DC), Post Angiogram Home Care Instructions Discharge Date/Time: 10/10/21 11:15 Attestations Medical Necessity Statement*: Care not expected to cross 2 midnights. Patient underwent peripheral angiogram was kept for observation overnight. 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
== END 2021-10-10 11:15 | disposition home or self-care (01) ==
LOC: CCL 07:42 → CSU 11:20 → MEDSURG 14:33
PROVIDERS: PCP Electrodiagnostic Medicine; Visit Provider Internal Medicine
DX: I70.213 Atherosclerosis of native arteries of extremities with intermittent claudication, bilateral legs (principal); Z87.891 Personal history of nicotine dependence; I25.10 Atherosclerotic heart disease of native coronary artery without angina pectoris; Z79.82 Long term (current) use of aspirin; Z79.84 Long term (current) use of oral hypoglycemic drugs; I11.0 Hypertensive heart disease with heart failure; I50.9 Heart failure, unspecified; E78.2 Mixed hyperlipidemia; E11.9 Type 2 diabetes mellitus without complications
CPT/HCPCS: 36415; 36416; 75625; 75716; 82962; 96360; 96372; 99152; 99153; C1769; C1887; C1894; J1644; J1815; J2250; J3010; J7030; Q0163; Q9967

== ENCOUNTER → 2021-10-21 13:33 | Outpatient (BNVA) | payer MEDICARE, SELFPAY | PROVIDERS: PCP Electrodiagnostic Medicine; Visit Provider Nurse Practitioner Family | DX: I25.10 Atherosclerotic heart disease of native coronary artery without angina pectoris (principal); Z98.61 Coronary angioplasty status; Z09 Encounter for follow-up examination after completed treatment for conditions other than malignant neoplasm; Z87.891 Personal history of nicotine dependence | CPT/HCPCS: 99214 ==

== ENCOUNTER 2021-11-20 14:27 | Outpatient (CLI) | payer MEDICARE, SELFPAY ==
--- NOTE | 2021-11-20 15:00 | PFTS_ITS ---
Date of Study:11/20/21 Date of Dictation: MECHANICS: Forced vital capacity (FVC) is reduced. Forced expiratory volume in one second (FEV1) is reduced. FEV1/FVC is normal. FLOW VOLUME LOOP: Reduced flow at all lung volumes with scooping. LUNG VOLUMES: Total lung capacity (TLC) is normal. Residual volume (RV) is normal. DIFFUSING CAPACITY FOR CARBON MONOXIDE: Normal. INTERPRETATION: The prebronchodilator spirometry is consistent with mild restriction. No postbronchodilator spirometry was performed. Lung volumes are normal. Gas exchange (DLCO) is normal. Discrepancy between spirometry and lung volume measurement are consistent with nonspecific ventilatory limitations which can be present in patients with asthma. MTDD
== END 2021-11-20 14:28 | disposition home or self-care (01) ==
PROVIDERS: PCP Electrodiagnostic Medicine; Visit Provider Internal Medicine Pulmonary Disease
DX: J44.9 Chronic obstructive pulmonary disease, unspecified (principal)
CPT/HCPCS: 94010; 94618; 94726; 94729

== ENCOUNTER 2021-11-22 12:04 | Outpatient (CLI) | payer MEDICARE, SELFPAY ==
[2021-11-22 12:32] VITALS: BMI 34.0
--- NOTE | 2021-11-22 12:33 | ECG_ITS ---
[facility] Test Date: 2021-11-22 Pat Name: Emerson Monique Department: Room: Gender: Male Neurology Specialist: Mayra Hillman : 1955 Requested By: Krys Young Order Number: [id number] Cynthia MD: Hien Sahu M.D. Interpretive Statements NAME OF STUDY: TREADMILL STRESS TEST INDICATION: Chest Pain; Shortness of Breath, PROCEDURE: At the baseline, the patient's blood pressure was with a heart rate of. The baseline electrocardiogram showed normal sinus rhythm with normal ST-Ts. Right bundle branch block pattern. The patient exercised for 5 minutes and 1 second on a standard Santana protocol. Patient attained a maximum heart rate of 138 beats per minute(88% of the maximum predicted heart rate) with a blood pressure at the peak exercise of 186/95 mm Hg. The EKG at the peak exercise revealed nonspecific ST changes in the anterolateral leads. Patient did not have any chest pain or any significant cardiac arrhythmias with the exercise During the recovery phase, there were no new changes. During the recovery phase, the blood pressure went up to 265/105 mmHg. Blood pressure at the end of the recovery phase was 179/77 mm Hg with a heart rate of 88 per minute. CONCLUSION: 1. Nonspecific EKG response to treadmill exercise 2. No exercise-induced chest pain or cardiac arrhythmia 3. Slightly impaired exercise tolerance, attained a maximum of 7.0 METs Electronically Signed On 11-22-2021 14:40:47 CDT by Hien Sahu M.D. [email or web address]
[2021-11-22 12:56] VITALS: BP 179/77; PULSE 89
--- NOTE | 2021-11-22 12:59 | PC.NURSE ---
Patient arrived for plain treadmill test with oxygen on, states home dose is 2L. Patients oxygen saturation levels dropped to mid 80s during test on 3L O2 per nasal canula, O2 moved up to 5L until completion of test. Patient returned to 93% on 2L O2 post-test. Vitals WDL, pt states no chest pain pre, intra, and post test.
== END 2021-11-22 12:05 | disposition home or self-care (01) ==
LOC: CDL 12:07
PROVIDERS: PCP Electrodiagnostic Medicine; Visit Provider Nurse Practitioner Family
DX: R06.02 Shortness of breath (principal); R07.9 Chest pain, unspecified
CPT/HCPCS: 93017

== ENCOUNTER → 2021-12-09 08:46 | Outpatient (BNVA) | payer MEDICARE, SELFPAY | PROVIDERS: PCP Electrodiagnostic Medicine; Visit Provider Internal Medicine Pulmonary Disease | DX: J45.40 Moderate persistent asthma, uncomplicated (principal); R91.1 Solitary pulmonary nodule; G47.33 Obstructive sleep apnea (adult) (pediatric); J82.83 Eosinophilic asthma; J43.9 Emphysema, unspecified; Z87.891 Personal history of nicotine dependence; Z77.22 Contact with and (suspected) exposure to environmental tobacco smoke (acute) (chronic); Z99.81 Dependence on supplemental oxygen; Z95.5 Presence of coronary angioplasty implant and graft | CPT/HCPCS: 99214 ==

== ENCOUNTER 2022-04-18 18:31 | Emergency (ER) | payer MEDICARE, SELFPAY ==
[2022-04-18 18:31] VITALS: BP 174/74; PULSE 76; RESP 15; TEMP 36.5; O2SAT 92; BMI 34.9
[2022-04-18 20:18] LABS: Glucose Point of Care 492 mg/dL (70-110)
--- NOTE | 2022-04-18 20:27 | CTR_ITS ---
PROCEDURE INFORMATION: Exam: CT Head Without Contrast Exam date and time: 04/18/2022 8:36 PM Age: 66 years old Clinical indication: Pain; Headache; Patient HX: C/O severe JIMENEZ. ; Additional info: Persistant headache, worst ever TECHNIQUE: Imaging protocol: Computed tomography of the head without contrast. Sagittal and coronal reformatted images were created and reviewed. Radiation optimization: All CT scans at this facility use at least one of these dose optimization techniques: automated exposure control; mA and/or kV adjustment per patient size (includes targeted exams where dose is matched to clinical indication); or iterative reconstruction. COMPARISON: CT head wo con* [id number] 02/11/2017 6:20 PM RADIATION DOSE METRICS: Total DLP (mGy-cm): 1170.38 FINDINGS: Brain: No acute intracranial hemorrhage. No acute infarct. No intra-axial masses. Carias-white matter differentiation is preserved. No cerebral edema. No extra-axial fluid collections. No midline shift. Stable low-density extra-axial focus superior to the parafalcine/posterior left frontal lobe Findings are consistent with an arachnoid cyst. This measures 2.5 x 2.0 x 2.2 cm (series 7, image 34 and series 3, image 40). Stable mild atrophy of the brain parenchyma. Stable mildly decreased attenuation in the deep white matter, consistent with mild chronic microangiopathic change. No evidence for Chiari 1 malformation. Bilateral basal ganglia calcifications are stable. Cerebral ventricles: No hydrocephalus. Paranasal sinuses: Visualized paranasal sinuses are clear. Mastoid air cells: Mastoid air cells are clear bilaterally. Orbital cavities: Globes and lenses, extraocular muscles, and optic nerves are intact bilaterally. No acute intraorbital abnormality. Bones/joints: No acute fracture. Soft tissues: No acute abnormality of the extracranial soft tissues. Vasculature: Atherosclerotic changes in the visualized arteries. CT/CT head wo con* [id number] IMPRESSION: 1. No acute abnormality of the brain. 2. Findings consistent with a stable arachnoid cyst superior to the parafalcine/posterior left frontal lobe. 3. Stable mild atrophy of the brain parenchyma. 4. Stable mild chronic white matter microangiopathic change. 5. Incidental/nonacute findings are listed in the report.
--- NOTE | 2022-04-18 20:27 | XRR_ITS ---
PROCEDURE INFORMATION: Exam: XR Chest Exam date and time: 04/18/2022 8:33 PM Age: 66 years old Clinical indication: Other: Chf; Prior surgery; Surgery date: 6+ months; Surgery type: Cardiac stents; Additional info: HX chf, presents with ble pitting edema TECHNIQUE: Imaging protocol: Radiologic exam of the chest. Views: 1 view. COMPARISON: CT chest con [id number] 09/23/2021 1:30 PM FINDINGS: Lungs: Lungs are clear bilaterally. Pleural spaces: No pleural effusion. No pneumothorax. Heart/Mediastinum: Stable mild enlargement of the cardiac silhouette. Mediastinal contours are unremarkable. Bones/joints: Unremarkable for age. XR/XR chest 1V [id number] IMPRESSION: 1. No acute cardiopulmonary process. 2. Incidental/nonacute findings are listed in the report.
--- NOTE | 2022-04-18 20:29 | ED_ITS ---
HPI - Headache General: Chief Complaint: Headache Stated Complaint: Headache Time Seen by Provider: 04/18/22 20:11 Source: patient Mode of arrival: EMS Limitations: no limitations History of Present Illness: Patient presents to the emergency department today brought by EMS for evaluation treatment of continued and persistent headache, elevated blood sugars, fever and bilateral lower extremity swelling. Patient reports he has not been checking his blood sugars at home as he does not have a meter at this time however, he believes they have been high. EMS got a blood sugar of 430. Patient states he has not had vomiting or diarrhea. Patient reports a frontally located headache which is persistent without improvement for over 24 hours. He does report this is the worst headache he has ever had. Patient reports he has noted an increase in his lower extremity swelling the last several days as well. Patient has had some generalized upper respiratory symptoms accompanied by fever. Patient is not complaining of chest pains or shortness of breath but, chart review does show a recorded history of COPD and CHF. Patient states that for quite some time he had been on at home oxygen but, primary care has recently taken him off of it. 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 Family History Mother CAD (coronary artery disease) Diabetes Father CAD (coronary artery disease) Denies family history of Clotting disorder Anesthesia complication Bleeding disorder Social History Smoking and tobacco status: former smoker Quit status (tobacco): has quit using tobacco Year quit tobacco: age 26 Former quit date comment: 1ppd x 3years Alcohol intake: never Physical Exam Const: COMMON NORMALS: no acute distress, patient oriented x3 and alert HENMT: COMMON NORMALS: normocephalic, atraumatic, external ears normal, EAC's normal, Normal nasal mucous membranes and turbinates present and moist oral mucous membranes HEAD & SCALP: normocephalic and atraumatic NOSE: Normal nasal mucous membranes and turbinates present EXTERNAL EAR: Yes external ears normal EXTERNAL AUDITORY CANAL: EAC's normal Eye: COMMON NORMALS: Equal, round and reactive pupils present, EOMs intact bilaterally and conjunctivae normal CONJUNCTIVA: Yes conjunctivae normal PUPIL: Yes Equal, round and reactive pupils present Neck/C-Spine: COMMON NORMALS: full ROM, no lymphadenopathy, no meningeal signs and no JVD Lymph: LYMPHATIC: no lymphadenopathy noted Resp: COMMON NORMALS: normal respiratory effort, No retractions, No use of accessory muscles and clear to auscultation bilaterally AUSCULTATION: clear to auscultation bilaterally Cardio: COMMON NORMALS: no JVD, regular rate and regular rhythm RATE: regular rate RHYTHM: regular rhythm : COMMON NORMALS: Yes no CVA tenderness BLADDER/KIDNEY EXAM: Yes no CVA tenderness Back/Pelvis: COMMON NORMALS: no CVA tenderness, no thoracic nor lumbar tenderness and thoraco-lumbar ROM normal Extremity: COMMON NORMALS: full ROM; negative for no clubbing, cyanosis or edema (BLE edema) Neuro: COMMON NORMALS: patient oriented x3 SENSORIUM/ORIENTATION: Yes alert MENINGEAL SIGNS: Yes no meningeal signs Psych: COMMON NORMALS: mental status grossly normal, Normal thought process p resent, cooperative, normal affect and activity/motor behavior normal THOUGHT PROCESS: Normal thought process present Skin: COMMON NORMALS: no rashes or lesions noted and no wounds GENERAL SKIN EXAM: no rashes or lesions noted Course Vital Signs: Vital signs: Vital Signs Temperature 97.7 F 04/18/22 18:31 Pulse Rate 76 04/18/22 18:31 Respiratory Rate 15 04/18/22 18:31 Blood Pressure 174/74 04/18/22 18:31 Pulse Oximetry 92 04/18/22 18:31 Oxygen Delivery Md thod 04/18/22 18:31 MDM - Headache Medical Decision Making Patient presented today with various symptoms including frontally located headache, worsening bilateral lower extremity edema and concerns for elevated blood sugar readings. Patient admitted to vt that he does not have a working glucose monitor but does believe his blood sugars have been high. Further investigation indicates that he has not been taking his medications so he figured his blood sugars have been higher. This could account for many of the symptoms the patient is having and experiencing at this time as he is supposed to be on medications for blood pressure as well as his blood sugars. Patient's lab work shows elevated blood glucose but did respond well to insulin here in the ER. Patient had no significant elevation in his BNP concerning for an acute CHF flareup. Chest x-ray was negative for any signs of pleural effusion or fluid accumulation in the lungs. Patient does have findings of a stable cardiomegaly. CT examination of his head-given that he complained of the worst headache he is ever dealt with, showed no signs of any acute/new findings today. Discussed case multiple times with Dr. Sepulveda who has also continue to monitor the patient's lab work. Patient is deemed safe to discharge home. Patient is to follow-up with his primary care doctor and start back on his medications. We had a very long discussion regarding diabetes and elevated blood sugars including symptoms of DKA and side effects of consistent elevated blood sugar readings. Patient admits that it would be best for him to start back on his medications and indicates he plans to do so. Differential Diagnosis Likely migraine, subarachnoid hemorrhage, headache (DKA, hyperglycemia, elevated blood sugar, CHF exacerbation) and meningitis Lab Data 04/18/22 21:04 04/18/22 21:04 Radiology Impressions Chest X-Ray 04/18/22 20:27 IMPRESSION: 1. No acute cardiopulmonary process. 2. Incidental/nonacute findings are listed in the report. Head CT 04/18/22 20:27 IMPRESSION: 1. No acute abnormality of the brain. 2. Findings consistent with a stable arachnoid cyst superior to the parafalcine/posterior left frontal lobe. 3. Stable mild atrophy of the brain parenchyma. 4. Stable mild chronic white matter microangiopathic change. 5. Incidental/nonacute findings are listed in the report. Laboratory Results WBC 5.9 10^3/uL (4.0-10.0) 04/18/22 21:04 RBC 4.50 10^6/uL (4.1-5.3) 04/18/22 21:04 Hgb 13.9 g/dL (11.7-16.6) 04/18/22 21:04 Hct 41.8 % (42.0-52.0) L 04/18/22 21:04 MCV 92.9 fl (80-94) 04/18/22 21:04 MCH 30.9 pg (28.0-34.0) 04/18/22 21:04 MCHC 33.3 g/dL (30.0-36.0) 04/18/22 21:04 RDW 12.2 % (12.1-15.1) 04/18/22 21:04 Plt Count 252 10^3/cmm (130-400) 04/18/22 21:04 MPV 9.7 fL (7.4-10.4) 04/18/22 21:04 Neut % (Auto) 70.7 % 04/18/22 21:04 Lymph % (Auto) 17.6 % 04/18/22 21:04 [place] % (Auto) 8.1 % 04/18/22 21:04 Eos % (Auto) 2.9 % 04/18/22 21:04 Baso % (Auto) 0.5 % 04/18/22 21:04 Neut # (Auto) 4.17 10^3/uL (1.8-7.7) 04/18/22 21:04 Lymph # (Auto) 1.0 10^3/uL (0.8-4.8) 04/18/22 21:04 [place] # (Auto) 0.5 10^3/uL (0.2-0.9) 04/18/22 21:04 Eos # (Auto) 0.2 10^3/uL (0.0-0.8) 04/18/22 21:04 Baso # (Auto) 0.0 10^3/uL (0.0-0.1) 04/18/22 21:04 Nucleated RBC % (auto) 0 % 04/18/22 21:04 Nucleated RBCs # 0.0 /100WBC 04/18/22 21:04 Sodium 133 mmol/L (136-145) L 04/18/22 21:04 Potassium 4.0 mmol/L (3.5-5.1) 04/18/22 21:04 Chloride 94 mmol/L (98-107) L 04/18/22 21:04 Carbon Dioxide 27 mmol/L (22-29) 04/18/22 21:04 Anion Gap 16.0 (5-19) 04/18/22 21:04 BUN 21 mg/dL (8-23) 04/18/22 21:04 Creatinine 1.0 mg/dL (0.7-1.2) 04/18/22 21:04 GFR Calculation 75.2 mL/min (90-130) L 04/18/22 21:04 Glucose 482 mg/dL (65-115) H 04/18/22 21:04 POC Glucose 328 mg/dL (70-110) H 04/19/22 00:34 Calculated Osmolality 300 mOsm/kg (285-295) H 04/18/22 21:04 Calcium 9.2 mg/dL (8.5-10.5) 04/18/22 21:04 Total Bilirubin 0.3 mg/dL (0.15-1.2) 04/18/22 21:04 AST 11 U/L (0-40) 04/18/22 21:04 ALT 10 U/L (0-41) 04/18/22 21:04 Alkaline Phosphatase 87 U/L (40-130) 04/18/22 21:04 NT-Pro-B Natriuret Pep 215 pg/mL (0-125) H 04/18/22 21:04 Total Protein 6.9 g/dL (6.6-8.7) 04/18/22 21:04 Albumin 4.0 g/dL (3.5-5.2) 04/18/22 21: Globulin 2.9 g/dL (1.3-4.6) 04/18/22 21:04 Urine Color Yellow (Yellow) 04/18/22 21:04 Urine Appearance Clear (CLEAR) 04/18/22 21:04 Urine pH 5 (5-7) 04/18/22 21:04 Ur Specific [place] 1.010 (1.005-1.030) 04/18/22 21:04 Urine Protein Trace (Negative) 04/18/22 21:04 Urine Glucose (UA) 4+ (Normal) H 04/18/22 21:04 Urine Ketones Negative (Negative) 04/18/22 21: Urine Blood Neg (Negative) 04/18/22 21: Urine Nitrate Negative (Negative) 04/18/22 21:04 Urine Bilirubin Neg (Negative) 04/18/22 21:04 Urine Urobilinogen Neg mg/dL (Negative) 04/18/22 21:04 Ur Leukocyte Esterase Negative (Negative) 04/18/22 21:04 Urine RBC 0-4 /hpf (0-2) H 04/18/22 21:04 Urine WBC None /hpf (0-5) 04/18/22 21:04 Ur Squamous Epith Cells None /hpf (0-5) 04/18/22 21:04 Amorphous Sediment Not Reportable 04/18/22 21:04 Urine Bacteria None /hpf (NONE) 04/18/22 21:04 Influenza Type A Ag negative (Negative) 04/18/22 21:04 Influenza Type B Ag negative (Negative) 04/18/22 21:04 SARS-CoV-2 Ag (Rapid) negative (Negative) 04/18/22 21:04 Discharge Plan Discharge Patient Disposition: Home Clinical Impression: Hyperglycemia due to diabetes mellitus, Bilateral lower extremity edema Headache Qualifiers: Headache type: unspecified Headache chronicity pattern: acute headache Intractability: not intractable Qualified Code(s): R51.9 - Headache, unspecified Condition: Stable Prescriptions: No Action sertraline [Zoloft] 100 mg tablet 100 mg PO DAILY nitroglycerin [Nitrostat] 0.4 mg tablet, sublingual 0.4 mg sublingual Q5M PRN (Reason: Chest Pain) Rx Instructions: do not exceed 3 doses per episode chlorthalidone 25 mg tablet 50 mg PO DAILY Qty: 90 3RF levothyroxine 125 mcg tablet 125 mcg PO DAILY cilostazol 100 mg tablet 100 mg PO BID atorvastatin 40 mg tablet 40 mg PO DAILY metformin 1,000 mg tablet 1,000 mg PO BID Hold Instructions: Resume on 10/12/21. metoprolol tartrate 25 mg tablet 25 mg PO BID glyburide micronized 3 mg tablet 3 mg PO DAILY amlodipine 10 mg tablet 10 mg PO DAILY aspirin [Adult Low Dose Aspirin] 81 mg tablet,delayed release (DR/EC) 81 mg PO DAILY clopidogrel 75 mg tablet 75 mg PO DAILY budesonide-formoterol [Symbicort] 80-4.5 mcg/actuation HFA aerosol inhaler 2 puff inhalation BID Qty: 10.2 3RF Ozempic 0.25 mg or 0.5 mg(2 mg/1.5 mL) pen injector SUBCUT bupropion HCl [Wellbutrin SR] 150 mg tablet sustained-release 12 hr 150 mg PO DAILY albuterol sulfate 90 mcg/actuation HFA aerosol inhaler 2 inh INHALATION Q4H PRN (Reason: shortness of breath or wheezing) Qty: 18 0RF tamsulosin 0.4 mg tablet 0.4 mg PO DAILY Discharge Orders: Discharge ED (Routine); Ordered 04/19/22 Ordered By: Rosaura Anaya Referrals: Brendan Horn DO [Primary Care Provider] - Discharge Diet: Diabetic Discharge Activity: Increase activity as tolerated Patient Instructions: Heart Failure (ED), Diabetic Hyperglycemia (ED) Activity Restrictions/Additional Instructions: CT examination of your head showed no signs of any acute abnormalities. Lab work showed significantly elevated blood sugar readings however, you did not appear to have concerns for a diabetic ketoacidosis at this time. Your blood sugar did respond to a dose of insulin here in the ER. As you have mentioned you have not been consistent with your medications, we do recommend getting back on your medicines as they have been prescribed to you and following up with your primary care doctor to discuss any change in therapy or treatment of your diabetes. Given the swelling in your lower legs we also checked your heart however, there is no significant findings of concern of your heart today. 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
--- NOTE | 2022-04-18 20:52 | ECG_ITS ---
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 Measurements Intervals [place] Rate: 68 P: 87 MO: 139 QRS: -5 QRSD: 154 T: 18 QT: 426 QTc: 456 Interpretive Statements SINUS RHYTHM RIGHT BUNDLE BRANCH BLOCK [120+ ms QRS DURATION, UPRIGHT V1, 40+ ms S IN I/aVL/V4/V5/V6] POSSIBLE SEPTAL MYOCARDIAL INFARCTION , PROBABLY OLD [30 ms Q WAVE IN V1/V2] Compared to ECG 12/21/2019 08:54:27 Myocardial infarct finding now present Electronically Signed On 04-18-2022 23:50:59 PERPETUAL INVENTORY CLERK by Live Panda M.D. [id number]
[2022-04-18 21:33] LABS: Basophils % 0.5 %; Eosinophils # 0.2 10^3/uL (0.0-0.8); Eosinophils % 2.9 %; Hematocrit 41.8 % (42.0-52.0); Hemoglobin 13.9 g/dL (11.7-16.6); Lymphocytes % 17.6 %; Mean Corpuscular HGB Conc 33.3 g/dL (30.0-36.0); Mean Corpuscular Hemoglobin 30.9 pg (28.0-34.0); Mean Corpuscular Volume 92.9 fl (80-94); Mean Platelet Volume 9.7 fL (7.4-10.4); Monocytes # 0.5 10^3/uL (0.2-0.9); Monocytes % 8.1 %; Neutrophils # 4.17 10^3/uL (1.8-7.7); Neutrophils % 70.7 %; Nucleated Red Blood Cells % 0 %; Platelet Count 252 10^3/cmm (130-400); Red Cell Distribution Width 12.2 % (12.1-15.1); White Blood Count 5.9 10^3/uL (4.0-10.0)
[2022-04-18 22:02] LABS: Influenza A by IFA negative (Negative); Influenza B by IFA negative (Negative)
[2022-04-18 22:03] LABS: SARS Covid-2 Antigen negative (Negative)
[2022-04-18 22:04] LABS: Alanine Aminotransferase 10 U/L (0-41); Alkaline Phosphatase 87 U/L (40-130); Aspartate Amino Transferase 11 U/L (0-40); Blood Urea Nitrogen 21 mg/dL (8-23); Calcium 9.2 mg/dL (8.5-10.5); Carbon Dioxide 27 mmol/L (22-29); Chloride 94 mmol/L (98-107); Globulin 2.9 g/dL (1.3-4.6); Glomerular Filtration Rate 75.2 mL/min (90-130); Glucose 482 mg/dL (65-115); NT Pro B Type Natriuretic Pept 215 pg/mL (0-125); Osmolality Calculated 300 mOsm/kg (285-295); Sodium 133 mmol/L (136-145); Total Bilirubin 0.3 mg/dL (0.15-1.2); Total Protein 6.9 g/dL (6.6-8.7)
[2022-04-18 22:16] LABS: Add Urine Microscopic? YES; Bilirubin Urine Neg (Negative); Blood Urine Neg (Negative); Glucose Urine UA 4+ (Normal); Ketones Urine Negative (Negative); Leukocyte Esterase Urine Negative (Negative); Nitrate Urine Negative (Negative); Protein Urine Trace (Negative); Urine Appearance Clear (CLEAR); Urine Color Yellow (Yellow); Urobilinogen Urine Neg (Negative); pH Urine 5 (5-7)
[2022-04-18 22:17] LABS: RBC Urine 0-4 /hpf (0-2)
[2022-04-18 22:18] LABS: Add Urine Culture? No
[2022-04-18 22:35] VITALS: BP 171/80; PULSE 73; RESP 18; O2SAT 98
[2022-04-18 23:33] LABS: Glucose Point of Care 462 mg/dL (70-110)
[2022-04-18] MEDS: acetaminophen 325 mg Tablet 650 MG PO (23:55)
[2022-04-18] MEDS: insulin regular-human 100 units/1 mL 10 UNIT IVP (23:56)
[2022-04-19 00:35] VITALS: BP 158/69; PULSE 66; RESP 18; O2SAT 100
[2022-04-19 00:37] LABS: Glucose Point of Care 328 mg/dL (70-110)
[2022-04-19 02:35] VITALS: BP 159/72; PULSE 62; RESP 18; O2SAT 98
[2022-04-19 04:35] VITALS: BP 176/78; PULSE 64; RESP 18; O2SAT 99
[2022-04-19 06:00] VITALS: BP 152/78; PULSE 72; RESP 18; O2SAT 99
[2022-04-19 08:58] LABS: Glucose Point of Care 170 mg/dL (70-110)
[2022-04-19 09:01] VITALS: BP 172/84; PULSE 66; RESP 19; O2SAT 100
[2022-04-23 02:59] LABS: Beta-Hydroxybutyrate 0.14 mmol/L
== END 2022-04-19 09:00 | disposition home or self-care (01) ==
PROVIDERS: Emergency Provider Physician Assistant; PCP Electrodiagnostic Medicine
DX: R51.9 Headache, unspecified (principal); E11.65 Type 2 diabetes mellitus with hyperglycemia; R60.0 Localized edema; Z79.84 Long term (current) use of oral hypoglycemic drugs; Z79.02 Long term (current) use of antithrombotics/antiplatelets; Z79.82 Long term (current) use of aspirin; Z20.822 Contact with and (suspected) exposure to COVID-19; I11.0 Hypertensive heart disease with heart failure; I50.9 Heart failure, unspecified; J44.9 Chronic obstructive pulmonary disease, unspecified; I25.10 Atherosclerotic heart disease of native coronary artery without angina pectoris; E78.2 Mixed hyperlipidemia; Z87.891 Personal history of nicotine dependence
CPT/HCPCS: 36416; 70450; 71045; 80053; 81001; 82010; 82962; 83880; 85025; 87426; 87804; 93005; 96374; 99285; J1815

== ENCOUNTER 2024-06-11 11:34 | Observation (INO) | payer MEDICARE, SELFPAY ==
[2024-06-11] VITALS (18 sets, daily range): BP systolic 117–184; BP diastolic 63–126; PULSE 73–103; RESP 14–20; TEMP 36.6–38.1; O2SAT 91–96; BMI 33.5
[2024-06-11 12:30] LABS: Influenza A NEGATIVE (Negative); Influenza B NEGATIVE (Negative); Respiratory Syncytial Virus Ce NEGATIVE (Negative)
[2024-06-11 12:33] LABS: SARS-CoV-2 PCR Positive (Negative)
--- NOTE | 2024-06-11 12:35 | PC.NURSE ---
changed from STEPHEN 3 to STEPHEN 4 d/t accidental charting
--- NOTE | 2024-06-11 13:35 | CTR_ITS ---
PROCEDURE INFORMATION: Exam: CTA Chest With Contrast Exam date and time: 06/11/2024 3:27 PM Age: 69 years old Clinical indication: Shortness of breath; Additional info: Ill cp SOB tachycardia TECHNIQUE: Imaging protocol: Computed tomographic angiography of the chest with contrast. Exam focused on the arteries. 3D rendering (Not supervised by radiologist): MIP and/or 3D reconstructed images were created by the technologist. Radiation optimization: All CT scans at this facility use at least one of these dose optimization techniques: automated exposure control; mA and/or kV adjustment per patient size (includes targeted exams where dose is matched to clinical indication); or iterative reconstruction. Contrast material: OMNIPAQUE 350; Contrast volume: 88 ml; Contrast route: INTRAVENOUS (IV); COMPARISON: CT chest [facility] [id number] 09/23/2021 1:30 PM RADIATION DOSE METRICS: Total DLP (mGy-cm): 486.95 FINDINGS: Pulmonary arteries: Normal. No pulmonary emboli. Aorta: Unremarkable. No aortic aneurysm. No aortic dissection. Lungs: Focal atelectatic changes deep within the right posterior costophrenic sulcus. Pleural spaces: Unremarkable. No pneumothorax. No pleural effusion. Heart: Unremarkable. No cardiomegaly. No pericardial effusion. Lymph nodes: Unremarkable. No enlarged lymph nodes. Bones/joints: Unremarkable. No acute fracture. Soft tissues: Unremarkable. CT/CT angio chest PE protcl [id number] IMPRESSION: No acute intrathoracic pathology.
--- NOTE | 2024-06-11 13:37 | XRR_ITS ---
PROCEDURE INFORMATION: Exam: XR Chest Exam date and time: 06/11/2024 2:15 PM Age: 69 years old Clinical indication: Shortness of breath; Prior surgery; Surgery date: 6+ months; Surgery type: Cardiac stent; PT presents to ED with C/O congestion, cough, fever, weak. PT states possibly positive for flu a and covid; X2 weeks ago symptom onset. PT denies n/v/d. PT wants to be evaluated d/t not feeling better. PT C/O discomfort when exhaling. PT wears 2l nc prn at home; Additional info: Covid + cp SOB TECHNIQUE: Imaging protocol: Radiologic exam of the chest. Views: 1 view. COMPARISON: CR XR chest 1V [id number] 04/18/2022 8:33 PM FINDINGS: Lungs: Unremarkable. No consolidation. Pleural spaces: Unremarkable. No pleural effusion. No pneumothorax. Heart/Mediastinum: Unremarkable. No cardiomegaly. Bones/joints: Unremarkable. XR/XR chest 1V portable [id number] IMPRESSION: No acute findings.
--- NOTE | 2024-06-11 13:40 | ECG_ITS ---
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1955 Requested By: Anita Hewitt Order Number: [id number] Reading MD: ANSON GODINEZ Measurements Intervals [place] Rate: 88 P: 50 NE: 139 QRS: -48 QRSD: 138 T: -17 QT: 364 QTc: 441 Interpretive Statements SINUS RHYTHM WITH SINUS ARRHYTHMIA LEFT AXIS DEVIATION [QRS AXIS < -30] RIGHT BUNDLE BRANCH BLOCK [120+ ms QRS DURATION, UPRIGHT V1, 40+ ms S IN I/aVL/V4/V5/V6] MINIMAL VOLTAGE CRITERIA FOR LVH, CONSIDER NORMAL VARIANT [MEETS CRITERIA IN ONE OF: R(aVL), S(V1), R(V5), R(V5/V6)+S(V1)] Compared to ECG 04/18/2022 20:52:32 Left-axis deviation now present Myocardial infarct finding no longer present Electronically Signed On 06-12-2024 20:57:50 STRIPPER PRELIMINARY by ANSON GODINEZ [email or web address] [id number]
[2024-06-11 14:24] LABS: Basophils % 0.4 %; Eosinophils # 0.1 10^3/uL (0.0-0.8); Eosinophils % 0.6 %; Hematocrit 42.1 % (37-53); Lymphocytes # 0.7 10^3/uL (0.8-4.8); Lymphocytes % 8.7 %; Mean Corpuscular HGB Conc 33.3 g/dL (30-55); Mean Corpuscular Hemoglobin 30.1 pg (27-33); Mean Corpuscular Volume 90.5 fl (82-101); Mean Platelet Volume 9.9 fL (7.4-10.4); Monocytes # 0.7 10^3/uL (0.2-0.9); Monocytes % 7.7 %; Neutrophils # 6.94 10^3/uL (1.8-7.7); Neutrophils % 81.8 %; Nucleated Red Blood Cells % 0 %; Platelet Count 264 10^3/cmm (157-399); Red Blood Count 4.65 10^6/uL (3.85-5.65); Red Cell Distribution Width 12.4 % (12.1-15.1); White Blood Count 8.48 10^3/uL (3.29-11.43)
[2024-06-11 14:47] LABS: Troponin(5th) Baseline 25 ng/L (0-15)
[2024-06-11 14:56] LABS: Alanine Aminotransferase 12 U/L (0-41); Albumin Level 3.4 g/dL (3.5-5.2); Alkaline Phosphatase 73 U/L (40-130); Anion Gap 19.5 (5-19); Aspartate Amino Transferase 9 U/L (0-40); Blood Urea Nitrogen 14 mg/dL (8-23); Calcium 8.2 mg/dL (8.5-10.5); Carbon Dioxide 27 mmol/L (22-29); Chloride 86 mmol/L (98-107); Creatinine Clr Calc Pharmacy 74.7859; Globulin 2.4 g/dL (1.3-4.6); Glomerular Filtration Rate 66.8 mL/min (90-130); NT Pro B Type Natriuretic Pept 400 pg/mL (0-125); Osmolality Calculated 294 mOsm/kg (285-295); Potassium 4.5 mmol/L (3.5-5.1); Sodium 128 mmol/L (136-145); Total Bilirubin 0.3 mg/dL (0.15-1.2); Total Protein 5.8 g/dL (6.6-8.7)
[2024-06-11 15:05] LABS: Glucose 590 mg/dL (65-115)
[2024-06-11 15:16] LABS: Ketone (Acetest) Serum Negative (Negative)
[2024-06-11 15:27] LABS: Glucose Point of Care 580 mg/dL (70-110)
[2024-06-11] MEDS: sodium chloride 0.9% 1,000 ML 999 ML IV (15:27)
[2024-06-11] MEDS: insulin regular-human 100 units/1 mL 15 UNIT IVP ×2 (15:28→17:00)
--- NOTE | 2024-06-11 15:35 | ECG_ITS ---
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1955 Requested By: Anita Hewitt Order Number: [id number] Cynthia MD: ANSON GODINEZ Measurements Intervals [place] Rate: 82 P: 44 MN: 132 QRS: -49 QRSD: 144 T: 7 QT: 365 QTc: 428 Interpretive Statements SINUS RHYTHM RIGHT BUNDLE BRANCH BLOCK [120+ ms QRS DURATION, UPRIGHT V1, 40+ ms S IN I/aVL/V4/V5/V6] LEFT ANTERIOR FASCICULAR BLOCK [QRS AXIS <= -45, QR IN I, RS IN II] LEFT VENTRICULAR HYPERTROPHY AND ST-T CHANGE [VOLTAGE CRITERIA PLUS ST/T ABNORMALITY] Compared to ECG 06/11/2024 13:40:10 Left anterior fascicular block now present ST (T wave) deviation now present Sinus arrhythmia no longer present Left-axis deviation no longer present Electronically Signed On 06-12-2024 21:08:41 BINGO CHECKER by ANSON GODINEZ [id number] [id number]
[2024-06-11 16:26] LABS: Troponin 5 2HR 23.43 ng/L (0-15)
[2024-06-11 16:27] LABS: Troponin 5 2HR Delta -1.57 ABS# (0-10)
[2024-06-11 16:38] LABS: Glucose Point of Care > 600 mg/dL (70-110)
--- NOTE | 2024-06-11 17:10 | W.ED.URI ---
HPI - URI/Sore Throat General: Chief Complaint: Upper Respiratory Infection Stated Complaint: chest conjestion Time Seen by Provider: 06/11/24 13:10 History of Present Illness: Patient is a 69-year-old man that presents to the emergency department with chest pain, cough, congestion. Patient reports diagnosed and treated for influenza approximately 3 weeks ago. He states he started to feel little bit better but then became ill again. Patient reports fever, chills, body aches, cough, congestion. Patient has a medical history that includes carotid artery stenosis, peripheral vascular disease, hypertension, hyperlipidemia, congestive heart failure, coronary artery disease, diabetes, COPD. Associated symptoms: Reports chills, chest pain and fever(s) Related Data Home Medications ?Medication ?Instructions ?Recorded ?Confirmed amlodipine 10 mg tablet 10 mg PO DAILY 06/16/19 06/11/24 aspirin 81 mg tablet,delayed 81 mg PO DAILY 06/16/19 06/11/24 release (Adult Low Dose Aspirin) clopidogrel 75 mg tablet 75 mg PO DAILY 06/16/19 06/11/24 glyburide micronized 3 mg tablet 3 mg PO DAILY 06/16/19 06/11/24 levothyroxine 125 mcg tablet 125 mcg PO DAILY 06/16/19 06/11/24 metformin 1,000 mg tablet 1,000 mg PO BID 06/16/19 06/11/24 Held on 10/10/21. Instructions: Resume on 10/12/21. metoprolol tartrate 25 mg tablet 25 mg PO BID 06/16/19 06/11/24 nitroglycerin 0.4 mg sublingual 0.4 mg sublingual Q5M PRN Chest 07/10/21 06/11/24 tablet (Nitrostat) Pain sertraline 100 mg tablet (Zoloft) 100 mg PO DAILY 07/10/21 06/11/24 Previous Rx's ?Medication ?Instructions ?Recorded chlorthalidone 25 mg tablet 50 mg (2 x 25 mg) PO DAILY #90 tabs 07/10/21 Allergies Allergy/AdvReac Type Severity Reaction Status Date / Time lisinopril Allergy Unknown Verified 12/09/21 08:50 Review of Systems General: Reports: 10 or more systems reviewed and unremarkable except in HPI and below Const: Reports: fever(s), chills, body aches, change in appetite, fatigue and malaise Card: Reports: chest pain Resp: Reports: dyspnea, non-productive cough, wheezing, pain on inspiration and chest congestion PFSH ED PFSH: Medical History (Updated 06/11/24 @ 17:48 by Leonel Craft MD) Uncontrolled hypertension History of colon cancer Hypothyroidism Hx of coronary atherosclerosis Anemia Obesity Cellulitis Oxygen dependent Venous stasis of lower extremity Bilateral carotid artery stenosis PVD (peripheral vascular disease) Mixed hyperlipidemia Benign essential hypertension CHF (congestive heart failure) Peripheral artery disease Coronary artery disease Diabetes mellitus COPD (chronic obstructive pulmonary disease) Major depressive disorder, recurrent, mild Surgical History Hx of shoulder surgery S/P percutaneous transluminal angioplasty ([employer]) with stent placement History of bilateral hip arthroplasty Family History Mother CAD (coronary artery disease) Diabetes Father CAD (coronary artery disease) Denies family history of Clotting disorder Anesthesia complication Bleeding disorder Social History Smoking and tobacco/nicotine status: former use of tobacco/nicotine Quit status (tobacco/nicotine): has quit using Year quit tobacco: age 26 Former quit date comment: 1ppd x 3years Alcohol intake: never Substance/Drug Use: never Physical Exam Const: COMMON NORMALS: no acute distress, patient oriented x3 and alert GENERAL APPEARANCE: cooperative ORIENTATION/CONSCIOUSNESS: Yes awake, Yes oriented to person, Yes oriented to place and Yes oriented to time HENMT: COMMON NORMALS: normocephalic and atraumatic HEAD & SCALP: normocephalic and atraumatic FACE & SINUS: normal facial exam MOUTH: Normal oral and palatal mucosa present THROAT: posterior oropharynx normal Eye: COMMON NORMALS: Equal, round and reactive pupils present, EOMs intact bilaterally, conjunctivae normal and no scleral icterus GENERAL EYE: appearance normal, both eyes and all related structures ALIGNMENT: Yes alignment normal PERIORBITAL: periorbital findings normal CONJUNCTIVA: Yes conjunctivae normal PUPIL: Yes Equal, round and reactive pupils present Neck/C-Spine: COMMON NORMALS: full ROM GENERAL: Yes normal visual inspection Lymph: LYMPHATIC: no lymphadenopathy noted Chest: COMMONS NORMALS: normal inspection of the chest Breast/axilla inspection: Yes no chest deformity, asymmetry, normal contours, no nodules, masses, tenderness Resp: COMMON NORMALS: normal respiratory effort, No retractions, No use of accessory muscles and clear to auscultation bilaterally EFFORT & INSPECTION: Yes able to speak in complete sentences and Yes symmetric chest movement AUSCULTATION: clear to auscultation bilaterally Cardio: COMMON NORMALS: regular rate, regular rhythm and Peripheral pulses 2+ throughout RATE: regular rate RHYTHM: regular rhythm PERIPHERAL PULSES: Peripheral pulses 2+ throughout GI: COMMON NORMALS: Normal to inspection, nondistended, normoactive bowel sounds present, Soft to palpation, non-tender and No hepatosplenomegaly present INSPECTION: Yes normal to inspection AUSCULTATION: Yes normoactive bowel sounds PALPATION: Yes Soft to palpation and Yes No hepatosplenomegaly present RECTAL EXAM: Yes deferred Extremity: COMMON NORMALS: normal to inspection GENERAL: Yes normal exam except as noted Neuro: COMMON NORMALS: patient oriented x3 SENSORIUM/ORIENTATION: Yes alert, Yes oriented to person, Yes oriented to place and Yes oriented to time CRANIAL NERVES: Yes CN normal except as noted Psych: COMMON NORMALS: mental status grossly normal, Normal thought process present, cooperative, activity/motor behavior normal, denies homicidal ideation and denies suicidal ideation THOUGHT PROCESS: Normal thought process present Skin: COMMON NORMALS: no rashes or lesions noted, no wounds and turgor normal GENERAL SKIN EXAM: no rashes or lesions noted and turgor normal Course Vital Signs: Vital signs: Vital Signs Temperature 97.8 F 06/11/24 11:38 Pulse Rate 86 06/11/24 15:00 Respiratory Rate 16 06/11/24 15:00 Blood Pressure 177/104 06/11/24 17:00 Pulse Oximetry 94 06/11/24 17:00 Oxygen Delivery Me thod Room Air 06/11/24 11:38 MDM - URI/Sore Throat Medical Decision Making Patient is a 69-year-old male that presents to the emergency department with cough, congestion, chest pressure, pain on inspiration, shortness of breath fevers and chills. Diagnosed with COVID shortly after arrival. He underwent additional workup to his complaints of chest pressure and shortness of breath. Laboratory evaluation included CBC, CMP, glucose, serum ketones, troponin series and BNP. CBC reveals no leukocytosis anemias or thrombocytopenia. He has a chemistry panel that reveals hyponatremia but I think this is due to his glucose which is 590. His serum ketones was negative. He was given 30 units of insulin here in the emergency department on 2 different occasions. His blood sugar remains high. He usually takes metformin at home. He reports that his primary care provider has been trying to advance his treatment but he has been resistant. We did obtain both a chest x-ray and CTA chest due to his complaints of chest pain and tachycardia. Chest x-ray reveals no infiltrates or cardiomegaly. His CTA chest reveals no acute intrathoracic pathology. There is some evidence of atelectasis on the CT but no infiltrates. I reviewed the case with Dr. Beraden. Going to attempt admission the patient does not leave he can manage his sugars at home.. I did speak with Dr. Mueller who is agreeing to admit for observation. Lab Data 06/11/24 14:09 06/11/24 14:09 Radiology Impressions Chest CTA 06/11/24 13:35 IMPRESSION: No acute intrathoracic pathology. Chest X-Ray 06/11/24 13:37 IMPRESSION: No acute findings. Laboratory Results WBC 8.48 10^3/uL (3.29-11.43) 06/11/24 14:09 RBC 4.65 10^6/uL (3.85-5.65) 06/11/24 14:09 Hgb 14.00 g/dL (11.27-16.99) 06/11/24 14:09 Hct 42.1 % (37-53) 06/11/24 14:09 MCV 90.5 fl (82-101) 06/11/24 14:09 MCH 30.1 pg (27-33) 06/11/24 14:09 MCHC 33.3 g/dL (30-55) 06/11/24 14:09 RDW 12.4 % (12.1-15.1) 06/11/24 14:09 Plt Count 264 10^3/cmm (157-399) 06/11/24 14:09 MPV 9.9 fL (7.4-10.4) 06/11/24 14:09 Neut % (Auto) 81.8 % 06/11/24 14:09 Lymph % (Auto) 8.7 % 06/11/24 14:09 Vil[place] % (Auto) 7.7 % 06/11/24 14:09 Eos % (Auto) 0.6 % 06/11/24 14:09 Baso % (Auto) 0.4 % 06/11/24 14:09 Neut # (Auto) 6.94 10^3/uL (1.8-7.7) 06/11/24 14:09 Lymph # (Auto) 0.7 10^3/uL (0.8-4.8) L 06/11/24 14:09 [place] # (Auto) 0.7 10^3/uL (0.2-0.9) 06/11/24 14:09 Eos # (Auto) 0.1 10^3/uL (0.0-0.8) 06/11/24 14:09 Baso # (Auto) 0.0 10^3/uL (0.0-0.1) 06/11/24 14:09 Nucleated RBC % (auto) 0 % 06/11/24 14:09 Nucleated RBCs # 0.0 /100WBC 06/11/24 14:09 Sodium 128 mmol/L (136-145) L 06/11/24 14:09 Potassium 4.5 mmol/L (3.5-5.1) 06/11/24 14:09 Chloride 86 mmol/L (98-107) L 06/11/24 14:09 Carbon Dioxide 27 mmol/L (22-29) 06/11/24 14:09 Anion Gap 19.5 (5-19) H 06/11/24 14:09 BUN 14 mg/dL (8-23) 06/11/24 14:09 Creatinine 1.1 mg/dL (0.7-1.2) 06/11/24 14:09 GFR Calculation 66.8 mL/min (90-130) L 06/11/24 14:09 Glucose 590 mg/dL (65-115) H* 06/11/24 14:09 POC Glucose > 600 mg/dL (70-110) H* 06/11/24 16:35 Calculated Osmolality 294 mOsm/kg (285-295) 06/11/24 14:09 Calcium 8.2 mg/dL (8.5-10.5) L 06/11/24 14:09 Total Bilirubin 0.3 mg/dL (0.15-1.2) 06/11/24 14:09 AST 9 U/L (0-40) 06/11/24 14:09 ALT 12 U/L (0-41) 06/11/24 14:09 Alkaline Phosphatase 73 U/L (40-130) 06/11/24 14:09 Troponin T Baseline 25 ng/L (0-15) H 06/11/24 14:09 Troponin T 120 Minute 23.43 ng/L (0-15) H 06/11/24 15:54 Delta Troponin T -1.57 ABS# (0-10) L 06/11/24 15:54 NT-Pro-B Natriuret Pep 400 pg/mL (0-125) H 06/11/24 14:09 Total Protein 5.8 g/dL (6.6-8.7) L 06/11/24 14:09 Albumin 3.4 g/dL (3.5-5.2) L 06/11/24 14:09 Globulin 2.4 g/dL (1.3-4.6) 06/11/24 14:09 Serum Ketones Negative (Negative) 06/11/24 14:19 Coronavirus (PCR) Positive (Negative) A 06/11/24 11:45 Influenza A (PCR) Negative (Negative) 06/11/24 11:45 Influenza Type B (PCR) Negative (Negative) 06/11/24 11:45 RSV (PCR) Negative (Negative) 06/11/24 11:45 All radiology interpretation(s) finalized by discharge Discharge Plan Discharge Patient Disposition: Admitted As Inpatient Admit Provider: Leonel Craft Clinical Impression: Hyperglycemia due to diabetes mellitus, Diabetes mellitus, Acute hyponatremia, COVID Condition: Stable Discharge Diet: Advance as tolerated Coding Level of Care Code ED Bus Inspector for Crystal Junior
[2024-06-11 17:44] LABS: Glucose Point of Care 383 mg/dL (70-110)
--- NOTE | 2024-06-11 17:47 | PM.HP ---
Providers/Chief Complaint Primary Care Provider: Brendan Horn DO Chief Complaint: chest conjestion History of Present Illness Emerson Monique is a 69 year old male with past medical history of type 2 diabetes mellitus, hypertension, CAD presents to the ER today because not feeling well for last 3 to 4 weeks. He states he was diagnosed of flu 3 weeks ago by his PCP but never felt really well after that. He transiently felt well around 2 weeks ago but then again started feeling weak and tired hence presented to the ER where he was found to have hyperglycemia with blood sugars over 500, negative ketones, sodium of 128 and subsequently found to be positive for COVID-19. Denies any nausea, vomiting, headache, dizziness, difficulty in breathing, chest pain. Has not been taking his medications for last few weeks as he has not felt well. He does not check his blood pressures or blood sugars at home. States his primary doctor has been trying to set him up with Ozempic as an outpatient. Review of Systems General: Reports: 10 or more systems reviewed and unremarkable except in HPI and below Const: Denies: fever(s), chills, body aches, change in appetite, change in weight, malaise, night sweats, diaphoresis, change in sleep pattern, daytime sleepiness or snoring Eyes: Denies: change in vision, blurry vision, photophobia, eye discomfort or eye discharge ENMT: Denies: throat pain, enlarged tonsils, hoarseness, mouth pain, oral sores, dry mouth, tinnitus, nasal congestion or post nasal drip Card: Denies: chest pain, palpitations, irregular heart rhythm, edema, swelling of feet/ankles, lightheadedness, syncope, pre-syncope, dyspnea on exertion, orthopnea, leg pain with exertion or acrocyanosis Resp: Denies: dyspnea, productive cough, non-productive cough, wheezing, stridor, pain on inspiration, change in phlegm color, hemoptysis or chest congestion GI: Denies: abdominal pain, nausea, vomiting, hematemesis, coffee ground emesis, dysphagia, heartburn, diarrhea, constipation, bloating, GI cramping, change in bowel habits, pain on defecation, hematochezia or melena : Denies: flank pain, difficulty urinating, dysuria, urinary frequency, urinary urgency, urinary hesitancy, urinary dribbling, difficulty starting urination, change in urine stream, nocturia or hematuria Musc: Denies: neck pain, back pain, extremity pain, joint pain, joint swelling, joint redness, joint stiffness or limited range of motion Neuro: Denies: headache(s), numbness in extremities, weakness in extremities, sensory changes, lack of coordination, difficulty walking, frequent falls, dizziness, vertigo, confusion, Slurred speech present, difficulty communicating thoughts or seizure-like activity Psych: Denies: anxiety, depression, mood swings, panic attacks, hopelessness or irritability Endo: Denies: polyuria, polydipsia, tired all the time, cold intolerance, excessive sweating, flushing or heat intolerance Jason/Lymph: Denies: easy bruising or easy bleeding All/Imm: Denies: tongue swelling, facial swelling or acute wheezing Medications/Allergies Home Medications ?Medication ?Instructions ?Recorded ?Confirmed ?Last Taken ?Type amlodipine 10 mg tablet 10 mg PO DAILY 06/16/19 06/11/24 10/09/21 06:30 History aspirin 81 mg tablet,delayed 81 mg PO DAILY 06/16/19 06/11/24 10/09/21 06:30 History release (Adult Low Dose Aspirin) clopidogrel 75 mg tablet 75 mg PO DAILY 06/16/19 06/11/24 10/09/21 06:30 History glyburide micronized 3 mg tablet 3 mg PO DAILY 06/16/19 06/11/24 10/09/21 06:30 History levothyroxine 125 mcg tablet 125 mcg PO DAILY 06/16/19 06/11/24 10/09/21 06:30 History metformin 1,000 mg tablet 1,000 mg PO BID 06/16/19 06/11/24 10/08/21 06:00 History Held on 10/10/21. Instructions: Resume on 10/12/21. metoprolol tartrate 25 mg tablet 25 mg PO BID 06/16/19 06/11/24 10/09/21 06:30 History chlorthalidone 25 mg tablet 50 mg (2 x 25 mg) PO DAILY #90 tabs 07/10/21 06/11/24 10/09/21 06:30 Rx nitroglycerin 0.4 mg sublingual 0.4 mg sublingual Q5M PRN Chest 07/10/21 06/11/24 Unknown History tablet (Nitrostat) Pain sertraline 100 mg tablet (Zoloft) 100 mg PO DAILY 07/10/21 06/11/24 10/09/21 06:00 History Allergies Allergy/AdvReac Type Severity Reaction Status Date / Time lisinopril Allergy Unknown Verified 12/09/21 08:50 PFSH Acute PFSH: Medical History (Updated 06/11/24 @ 17:48 by Leonel Craft MD) Uncontrolled hypertension History of colon cancer Hypothyroidism Hx of coronary atherosclerosis Anemia Obesity Cellulitis Oxygen dependent Venous stasis of lower extremity Bilateral carotid artery stenosis PVD (peripheral vascular disease) Mixed hyperlipidemia Benign essential hypertension CHF (congestive heart failure) Peripheral artery disease Coronary artery disease Diabetes mellitus COPD (chronic obstructive pulmonary disease) Major depressive disorder, recurrent, mild Surgical History Hx of shoulder surgery S/P percutaneous transluminal angioplasty ([employer]) with stent placement History of bilateral hip arthroplasty Family History Mother CAD (coronary artery disease) Diabetes Father CAD (coronary artery disease) Denies family history of Clotting disorder Anesthesia complication Bleeding disorder Social History Smoking and tobacco/nicotine status: former use of tobacco/nicotine Quit status (tobacco/nicotine): has quit using Year quit tobacco: age 26 Former quit date comment: 1ppd x 3years Alcohol intake: never Substance/Drug Use: never Vitals/I&O/Wt Last Vital Signs Temp 97.8 F 06/11/24 11:38 Pulse 86 06/11/24 15:00 Resp 16 06/11/24 15:00 BP 177/104 06/11/24 17:00 Pulse Ox 94 06/11/24 17:00 O2 Del Method Room Air 06/11/24 11:38 Weight last 48 hrs Weight 100.244 kg Physical Exam Narrative: General: No acute distress, AO x3, morbidly obese, dehydrated HEENT: PERRLA, pupils bilaterally equal and reactive Chest: Normal vesicular breath sounds, no added sounds, equal good air entry bilaterally CVS: S1-S2 regular, no murmurs, no tachycardia, no gallops, no rubs Abdomen: Soft, nontender, no organomegaly, bowel sounds present Neuro: No focal deficits, no facial deformity, AO x3, power 5/5 in all limbs Data 06/11/24 14:09 06/11/24 14:09 A&P Assessment and plan (1) Hyperglycemia due to diabetes mellitus: Uncontrolled type 2 diabetes mellitus. No concern for DKA. On oral hypoglycemic as an outpatient. Check HbA1c. Being worked up for an outpatient Ozempic. Most likely will need to be discharged on insulin while waiting on Ozempic. For now start on insulin sliding scale moderate dose protocol ACHS P depending on insulin requirement in next 24 hours we will plan to add Lantus. Normal saline at 100 cc/h. (2) Pseudohyponatremia: In setting of hyperglycemia. Continue with NS as above. Monitor BMP in AM. (3) COVID: Mild disease. Not requiring oxygen. Incentive spirometry. Pulmicort twice daily, DuoNeb every 6 hour. The patient was not requiring any oxygen next 24 hours will benefit from possible Paxlovid as an outpatient. (4) Asthma: Nebulization as above. (5) COPD (chronic obstructive pulmonary disease): (6) Diabetes mellitus: (7) Uncontrolled hypertension: Goal blood pressure less than 140/90 mmHg. Blood pressure is elevated. Continue with home dose of amlodipine. Add losartan 50 mg oral daily. Switch from metoprolol 35 mg twice daily to Coreg 6.25 mg twice daily. Uptitrate as for goal blood pressure. Plan History of CAD: No active chest pain. Continue with home dose of aspirin, statin. Switching metoprolol as above. Check A1c, lipid panel. Depending on lipid panel will add statin. Full code Carb consistent cardiac diet Heparin 5000 Q12 hourly for DVT prophylaxis Famotidine for PUD prophylaxis PDMP PDMP Reviewed: Not Reviewed Attestations Medical Necessity Statement*: Admit under observation for management of uncontrolled hypertension, severe hyperglycemia in setting of type 2 diabetes mellitus, pseudohyponatremia Diagnoses Hyperglycemia due to diabetes mellitus E11.65 Pseudohyponatremia R79.89 COVID U07.1 Asthma J45.909 COPD (chronic obstructive pulmonary disease) J44.9 Diabetes mellitus E11.9 Uncontrolled hypertension I10
[2024-06-11 18:06] LABS: Iron 30 ug/dL (59-158); Percent Saturation 12.8 % (20-50); Total Iron Binding Capacity 234 mcg/dl; Unsaturated Iron Binding 204 ug/dL (112-347)
[2024-06-11 18:07] LABS: Lactic Sepsis W/Reflex 4.6 mmol/L (0.5-2.2); Reflex Lactate Order REFLEX LACTIC ORDERD
[2024-06-11] MEDS: losartan 50 mg Tablet PO (18:16)
[2024-06-11] MEDS: carvedilol 6.25 mg Tablet PO (18:17)
[2024-06-11 18:22] LABS: Procalcitonin 0.12 ng/mL (0-0.5); Vitamin B12 627 pg/mL (232-1245)
[2024-06-11] MEDS: sodium chloride 0.9% 1,000 ML 75 ML IV (19:48)
[2024-06-11 20:41] LABS: Lactic Acid level (Lactate) 2.3 mmol/L (0.5-2.2); Troponin 5 6HR 26.91 ng/L (0-15); Troponin 5 6HR Delta 1.91 ng/L (0-12)
[2024-06-11] MEDS: budesonide 0.5 mg/2 mL Neb INHALATION (20:58)
[2024-06-11] MEDS: ipratropium-albuterol 3 mL Neb INHALATION (20:59)
--- NOTE | 2024-06-11 21:09 | ECG_ITS ---
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1955 Requested By: Anita Hewitt Order Number: [id number] Reading MD: ANSON GODINEZ Measurements Intervals [place] Rate: 77 P: 23 MI: 142 QRS: -46 QRSD: 142 T: -43 QT: 390 QTc: 443 Interpretive Statements SINUS RHYTHM RIGHT BUNDLE BRANCH BLOCK [120+ ms QRS DURATION, UPRIGHT V1, 40+ ms S IN I/aVL/V4/V5/V6] LEFT ANTERIOR FASCICULAR BLOCK [QRS AXIS <= -45, QR IN I, RS IN II] MODERATE VOLTAGE CRITERIA FOR LVH, CONSIDER NORMAL VARIANT [MEETS CRITERIA IN ONE OF: R(aVL), S(V1), R(V5), R(V5/V6)+S(V1)] Compared to ECG 06/11/2024 17:18:09 ST (T wave) deviation no longer present Electronically Signed On 06-12-2024 21:08:30 [employer]OTTON GRAD[employer] by ANSON GODINEZ [email or web address]
[2024-06-11] MEDS: pantoprazole 40 mg SDV IVP (21:13)
[2024-06-11] MEDS: docusate sodium 100 mg Capsule PO (21:14)
[2024-06-11] MEDS: heparin 5,000 unit/mL INJ 1 mL 5000 UNIT SUBCUT (21:14)
[2024-06-11 21:32] LABS: Estmated Average Glucose 335; Hemoglobin A1C 13.3 % (4.0-6.0)
[2024-06-11 21:42] LABS: Glucose Point of Care 565 mg/dL (70-110)
[2024-06-11 21:42] LABS: Glucose Point of Care 361 mg/dL (70-110)
[2024-06-11] MEDS: insulin lispro 100 unit/1 mL SUBCUT (21:57)
[2024-06-12] VITALS (11 sets, daily range): BP systolic 141–152; BP diastolic 67–81; PULSE 69–78; RESP 14–17; TEMP 36.5–37.2; O2SAT 90–93
[2024-06-12] MEDS: ipratropium-albuterol 3 mL Neb INHALATION ×3 (02:19→13:50)
[2024-06-12] MEDS: zolpidem 5 mg Tablet PO (02:54)
[2024-06-12 05:31] LABS: Basophils % 0.4 %; Eosinophils # 0.1 10^3/uL (0.0-0.8); Eosinophils % 1.3 %; Hematocrit 40.4 % (37-53); Lymphocytes % 14.7 %; Mean Corpuscular HGB Conc 32.2 g/dL (30-55); Mean Platelet Volume 10.2 fL (7.4-10.4); Monocytes # 0.8 10^3/uL (0.2-0.9); Monocytes % 11.4 %; Neutrophils # 4.79 10^3/uL (1.8-7.7); Neutrophils % 70.7 %; Nucleated Red Blood Cells % 0 %; Platelet Count 249 10^3/cmm (157-399); Red Blood Count 4.49 10^6/uL (3.85-5.65); Red Cell Distribution Width 12.4 % (12.1-15.1); White Blood Count 6.78 10^3/uL (3.29-11.43)
[2024-06-12] MEDS: sodium chloride 0.9% 1,000 ML 75 ML IV (05:40)
[2024-06-12 05:52] LABS: Alanine Aminotransferase 12 U/L (0-41); Albumin Level 3.3 g/dL (3.5-5.2); Alkaline Phosphatase 61 U/L (40-130); Anion Gap 14.1 (5-19); Aspartate Amino Transferase 11 U/L (0-40); Blood Urea Nitrogen 9 mg/dL (8-23); Calcium 8.4 mg/dL (8.5-10.5); Carbon Dioxide 30 mmol/L (22-29); Chloride 97 mmol/L (98-107); Creatinine Clr Calc Pharmacy 103.0892; Globulin 2.7 g/dL (1.3-4.6); Glomerular Filtration Rate 96.4 mL/min (90-130); Glucose 138 mg/dL (65-115); Magnesium 1.9 mg/dL (1.7-2.3); Osmolality Calculated 285 mOsm/kg (285-295); Phosphorus 2.1 mg/dL (2.5-4.5); Potassium 4.1 mmol/L (3.5-5.1); Sodium 137 mmol/L (136-145); Total Bilirubin 0.6 mg/dL (0.15-1.2)
[2024-06-12] MEDS: levothyroxine 125 mcg Tablet PO (06:03)
[2024-06-12 06:07] LABS: Folate Level 17.5 ng/mL (4.5-32.2)
[2024-06-12 06:28] LABS: Chol HDL Ratio 7.06 mg/dL (1.0-5.00); Cholesterol 240 mg/dL (0-200); HDL Cholesterol 34 mg/dL (60-100); Triglycerides 647 mg/dL (0-150)
[2024-06-12 06:29] LABS: Procalcitonin 0.12 ng/mL (0-0.5)
[2024-06-12 06:41] LABS: LDL Cholesterol Direct 91 mg/dL (0-100)
[2024-06-12 06:53] LABS: Glucose Point of Care 191 mg/dL (70-110)
[2024-06-12] MEDS: budesonide 0.5 mg/2 mL Neb INHALATION (07:29)
[2024-06-12] MEDS: aspirin 81 mg EC Tablet PO (09:35)
[2024-06-12] MEDS: sertraline 100 mg Tablet PO (09:35)
[2024-06-12] MEDS: docusate sodium 100 mg Capsule PO (09:36)
[2024-06-12] MEDS: losartan 50 mg Tablet PO (09:36)
[2024-06-12] MEDS: heparin 5,000 unit/mL INJ 1 mL 5000 UNIT SUBCUT (09:36)
[2024-06-12] MEDS: carvedilol 6.25 mg Tablet PO (09:36)
[2024-06-12] MEDS: insulin lispro 100 unit/1 mL SUBCUT ×2 (09:37→13:14)
[2024-06-12] MEDS: clopidogrel 75 mg Tablet PO (09:37)
[2024-06-12] MEDS: amlodipine 10 mg Tablet PO (09:37)
[2024-06-12 11:18] LABS: Glucose Point of Care 243 mg/dL (70-110)
--- NOTE | 2024-06-12 11:54 | P.DS_ITS ---
Discharge Providers Date of Admission: 06/11/24 17:34 Date of Discharge: June 12, 2024 Attending Provider at Admission: Leonel Craft MD Attending Provider at Discharge: Leonel Craft MD Primary Care Provider: Brendan Horn DO Diagnoses at Discharge Discharge Diagnosis (1) Hyperglycemia due to diabetes mellitus: Status: Acute (2) Pseudohyponatremia: Status: Acute (3) COVID: Status: Acute (4) Asthma: Status: Acute (5) COPD (chronic obstructive pulmonary disease): Status: Acute (6) Diabetes mellitus: Status: Acute (7) Uncontrolled hypertension: Status: Acute Reason for Visit Reason for Visit: chest conjestion Brief History: Emerson Monique is a 69 year old male with past medical history of type 2 diabetes mellitus, hypertension, CAD presents to the ER today because not feeling well for last 3 to 4 weeks. He states he was diagnosed of flu 3 weeks ago by his PCP but never felt really well after that. He transiently felt well around 2 weeks ago but then again started feeling weak and tired hence presented to the ER where he was found to have hyperglycemia with blood sugars over 500, negative ketones, sodium of 128 and subsequently found to be positive for COVID- 19. Denies any nausea, vomiting, headache, dizziness, difficulty in breathing, chest pain. Has not been taking his medications for last few weeks as he has not felt well. He does not check his blood pressures or blood sugars at home. States his primary doctor has been trying to set him up with Ozempic as an outpatient. Hospital Course Hospital Course Patient was admitted the hospital further evaluation and management with concerns for uncontrolled hyperglycemia with a blood sugar of more than 590 on admission. He was also found to have hyponatremia on admission which was thought to be pseudohyponatremia in setting of elevated blood sugars. Ketones were negative and DKA was ruled out. Eventually was found to have an A1c of 13.3. During hospitalization was also found to have uncontrolled hypertension. He was found to be positive for COVID-19 though he remained on room air. He is been discharged in hemodynamically stable condition with advised to take Lantus 25 units twice daily, Humalog 5 units 3 times a day premeals with advised to check his blood sugars every day and morning. He is also advised to check his blood pressure daily at home maintain a blood pressure diary. Goal blood pressure less than 140/90. He is to follow with a primary care provider with a blood pressure and blood sugar diary within next 2 weeks for further adjustment of medications. As patient remained on room air he has been discharged on oral Paxlovid for COVID-19. Physical Exam Narrative: General: No acute distress, AO x3, morbidly obese, dehydrated HEENT: PERRLA, pupils bilaterally equal and reactive Chest: Normal vesicular breath sounds, no added sounds, equal good air entry bilaterally CVS: S1-S2 regular, no murmurs, no tachycardia, no gallops, no rubs Abdomen: Soft, nontender, no organomegaly, bowel sounds present Neuro: No focal deficits, no facial deformity, AO x3, power 5/5 in all limbs Discharge Data Studies Completed and Pending Completed Studies During Hospitalization Category Date Time Status CTA chest [CT angio chest PE protcl [id number]] Stat Cat Scan 06/11/24 13:35 Completed XR chest 1V portable [id number] Stat Exams 06/11/24 13:37 Completed Pending at discharge Category Date Time Status Complete Blood Count w/Auto AM LABS Lab 06/13/24 04:00 Ordered Complete Blood Count w/Auto AM LABS Lab 06/14/24 04:00 Ordered Comprehensive Metabolic Panel AM LABS Lab 06/13/24 04:00 Ordered Comprehensive Metabolic Panel AM LABS Lab 06/14/24 04:00 Ordered Magnesium AM LABS Lab 06/13/24 04:00 Ordered Magnesium AM LABS Lab 06/14/24 04:00 Ordered Phosphorus AM LABS Lab 06/13/24 04:00 Ordered Phosphorus AM LABS Lab 06/14/24 04:00 Ordered Urinalysis Routine Lab 06/11/24 17:47 Ordered CV. echo complete* [id number] Routine Ultrasound 06/12/24 18:53 Taken Radiology Impressions Chest CTA 06/11/24 13:35 IMPRESSION: No acute intrathoracic pathology. Chest X-Ray 06/11/24 13:37 IMPRESSION: No acute findings. Laboratory Results WBC 6.78 10^3/uL (3.29-11.43) 06/12/24 04:25 RBC 4.49 10^6/uL (3.85-5.65) 06/12/24 04:25 Hgb 13.00 g/dL (11.27-16.99) 06/12/24 04:25 Hct 40.4 % (37-53) 06/12/24 04:25 MCV 90.0 fl (82-101) 06/12/24 04:25 MCH 29.0 pg (27-33) 06/12/24 04:25 MCHC 32.2 g/dL (30-55) 06/12/24 04:25 RDW 12.4 % (12.1-15.1) 06/12/24 04:25 Plt Count 249 10^3/cmm (157-399) 06/12/24 04:25 MPV 10.2 fL (7.4-10.4) 06/12/24 04:25 Neut % (Auto) 70.7 % 06/12/24 04:25 Lymph % (Auto) 14.7 % 06/12/24 04:25 Storey % (Auto) 11.4 % 06/12/24 04:25 Eos % (Auto) 1.3 % 06/12/24 04:25 Baso % (Auto) 0.4 % 06/12/24 04:25 Neut # (Auto) 4.79 10^3/uL (1.8-7.7) 06/12/24 04:25 Lymph # (Auto) 1.0 10^3/uL (0.8-4.8) 06/12/24 04:25 Storey # (Auto) 0.8 10^3/uL (0.2-0.9) 06/12/24 04:25 Eos # (Auto) 0.1 10^3/uL (0.0-0.8) 06/12/24 04:25 Baso # (Auto) 0.0 10^3/uL (0.0-0.1) 06/12/24 04:25 Nucleated RBC % (auto) 0 % 06/12/24 04:25 Nucleated RBCs # 0.0 /100WBC 06/12/24 04:25 Sodium 137 mmol/L (136-145) 06/12/24 04:25 Potassium 4.1 mmol/L (3.5-5.1) 06/12/24 04:25 Chloride 97 mmol/L (98-107) L 06/12/24 04:25 Carbon Dioxide 30 mmol/L (22-29) H 06/12/24 04:25 Anion Gap 14.1 (5-19) 06/12/24 04:25 BUN 9 mg/dL (8-23) 06/12/24 04:25 Creatinine 0.8 mg/dL (0.7-1.2) 06/12/24 04:25 GFR Calculation 96.4 mL/min (90-130) 06/12/24 04:25 Glucose 138 mg/dL (65-115) H 06/12/24 04:25 POC Glucose 243 mg/dL (70-110) H 06/12/24 10:44 Estimat Average Glucose 335 06/11/24 14:09 Hemoglobin A1c 13.3 % (4.0-6.0) H 06/11/24 14:09 Calculated Osmolality 285 mOsm/kg (285-295) 06/12/24 04:25 Lactic Acid 4.6 mmol/L (0.5-2.2) H* 06/11/24 15:54 Lactic Acid (Sepsis) 2.3 mmol/L (0.5-2.2) H 06/11/24 20:13 Calcium 8.4 mg/dL (8.5-10.5) L 06/12/24 04:25 Phosphorus 2.1 mg/dL (2.5-4.5) L 06/12/24 04:25 Magnesium 1.9 mg/dL (1.7-2.3) 06/12/24 04:25 Iron 30 ug/dL (59-158) L 06/11/24 14:09 TIBC 234 mcg/dl 06/11/24 14:09 % Saturation 12.8 % (20-50) L 06/11/24 14:09 Unsat Iron Binding 204 ug/dL (112-347) 06/11/24 14:09 Total Bilirubin 0.6 mg/dL (0.15-1.2) 06/12/24 04:25 AST 11 U/L (0-40) 06/12/24 04:25 ALT 12 U/L (0-41) 06/12/24 04:25 Alkaline Phosphatase 61 U/L (40-130) 06/12/24 04:25 Troponin T Baseline 25 ng/L (0-15) H 06/11/24 14:09 Troponin T 120 Minute 23.43 ng/L (0-15) H 06/11/24 15:54 Delta Troponin T -1.57 ABS# (0-10) L 06/11/24 15:54 Troponin T Hi Sens 6Hr 26.91 ng/L (0-15) H 06/11/24 20:13 Troponin T Hi Sens 6Hr Delta 1.91 ng/L (0-12) 06/11/24 20:13 NT-Pro-B Natriuret Pep 400 pg/mL (0-125) H 06/11/24 14:09 Total Protein 6.0 g/dL (6.6-8.7) L 06/12/24 04:25 Albumin 3.3 g/dL (3.5-5.2) L 06/12/24 04:25 Globulin 2.7 g/dL (1.3-4.6) 06/12/24 04:25 Triglycerides 647 mg/dL (0-150) H 06/12/24 04:25 Cholesterol 240 mg/dL (0-200) H 06/12/24 04:25 LDL Cholesterol Direct 91 mg/dL (0-100) 06/12/24 04:25 LDL Cholesterol, Calc Not Reportable 06/12/24 04:25 HDL Cholesterol 34 mg/dL (60-100) L 06/12/24 04:25 LDL/HDL Ratio Not Reportable 06/12/24 04:25 Cholesterol/HDL Ratio 7.06 mg/dL (1.0-5.00) H 06/12/24 04:25 Vitamin B12 627 pg/mL (232-1245) 06/11/24 14:09 Folate 17.5 ng/mL (4.5-32.2) 06/12/24 04:25 Procalcitonin 0.12 ng/mL (0-0.5) 06/12/24 04:25 TSH 3.60 uIU/mL (0.27-4.20) 06/11/24 14:09 Serum Ketones Negative (Negative) 06/11/24 14:19 Coronavirus (PCR) Positive (Negative) A 06/11/24 11:45 Influenza A (PCR) Negative (Negative) 06/11/24 11:45 Influenza Type B (PCR) Negative (Negative) 06/11/24 11:45 RSV (PCR) Negative (Negative) 06/11/24 11:45 Vitals Last Vital Signs Temp 97.8 F 06/12/24 11:25 Pulse 69 06/12/24 11:25 Resp 16 06/12/24 07:29 BP 141/67 06/12/24 11:25 Pulse Ox 91 06/12/24 11:25 O2 Del Method Room Air 06/12/24 11:25 O2 Flow Rate 2 06/11/24 20:59 Discharge Plan Discharge Patient Disposition: Home Condition: Stable Prescriptions: New (DME) lancets Misc See Rx Instructions .ROUTE .MEDSUPPLY Qty: 100 0RF Rx Instructions: As directed (DME) blood-glucose meter [Blood Glucose Monitoring] Kit See Rx Instructions .ROUTE .MEDSUPPLY Qty: 1 0RF Rx Instructions: As directed (DME) pen needle, diabetic [BD Ultra-Fine Micro Pen Needle] 32 gauge x 1/4 needle See Rx Instructions .ROUTE .MEDSUPPLY Qty: 50 0RF Rx Instructions: As directed losartan 50 mg Tablet 50 mg PO DAILY Qty: 30 0RF insulin glargine [Lantus Solostar U-100 Insulin] 100 unit/mL (3 mL) insulin pen 25 unit SUBCUT BID Qty: 15 0RF insulin lispro [Humalog KwikPen Insulin] 100 unit/mL insulin pen 5 unit SUBCUT TID Qty: 15 0RF carvedilol 6.25 mg Tablet 6.25 mg PO BID Qty: 60 0RF Paxlovid 300 mg (150 mg x 2)-100 mg tablets,dose pack See Rx Instructions .ROUTE .COMPLEX Qty: 30 0RF Rx Instructions: take TWO 150 mg tablets of nirmatrelvir with ONE 100 mg tablet of ritonavir twice daily for 5 days Continued sertraline [Zoloft] 100 mg tablet 100 mg PO DAILY nitroglycerin [Nitrostat] 0.4 mg tablet, sublingual 0.4 mg sublingual Q5M PRN (Reason: Chest Pain) Rx Instructions: do not exceed 3 doses per episode chlorthalidone 25 mg tablet 50 mg PO DAILY Qty: 90 3RF levothyroxine 125 mcg tablet 125 mcg PO DAILY amlodipine 10 mg tablet 10 mg PO DAILY aspirin [Adult Low Dose Aspirin] 81 mg tablet,delayed release (DR/EC) 81 mg PO DAILY clopidogrel 75 mg tablet 75 mg PO DAILY Discontinued metformin 1,000 mg tablet 1,000 mg PO BID metoprolol tartrate 25 mg tablet 25 mg PO BID glyburide micronized 3 mg tablet 3 mg PO DAILY Discharge Orders: Discharge Order (Routine); Ordered 06/12/24 Ordered By: Leonel Craft Referrals: Brendan Horn DO [Primary Care Provider] - 2 weeks Mk Jackson MD [Physician] - 1 month (Uncontrolled type 2 diabetes mellitus) Discharge Diet: Advance as tolerated Patient Instructions: Opioid Safety Activity Restrictions/Additional Instructions: Please check your blood pressures daily at home and maintain a blood pressure diary. Please check your fasting blood sugars daily and maintain a blood sugar diary. Goal blood pressures less than 140/90 mmHg. Goal fasting blood sugar is less than 130. Follow-up with a primary care provider within next 2 weeks for further adjustment of medications with your blood pressure and blood sugar diary. For blood pressure do not take metoprolol anymore. Instead you will be taking carvedilol and losartan. Coreg will be 2 times a day, losartan be 1 time a day. Continue your doses of amlodipine, chlorthalidone as before. For diabetes do not take glyburide and metformin anymore. Instead take Lantus 25 units twice daily and Humalog 5 units 3 times a day before each meal. You should follow-up with an trust administrator/diabetic specialist as an outpatient. Discharge Attestations Time Spent in Discharge Care*: greater than 30 min Specific Discharge Activities: educating patient, discussing with pcp/other providers, discussing with skilled nursing case manager/social workers/dc planners, documenting/other paperwork and evaluating patient/reviewing data Status at Discharge: Cognitive status at discharge: cognitively intact , Behavioral status at discharge: cooperative , Functional status at discharge: uses cane/walker , Overall status at discharge: patient is progressing back to baseline Quality Metrics Clinical Quality Measures [ No reported AMI, CVA or VTE this stay] Coding Level of Care Code 38655 Total time (in minutes) for Discharge: 60 Diagnoses Hyperglycemia due to diabetes mellitus E11.65 Pseudohyponatremia R79.89 COVID U07.1 Asthma J45.909 COPD (chronic obstructive pulmonary disease) J44.9 Diabetes mellitus E11.9 Uncontrolled hypertension I10
--- NOTE | 2024-06-12 18:53 | USCV_ITS ---
Emerson Monique Age: 69 Gender: M : 1955 Exam Date: 06/12/2024 07:38 Ordering Phys: Leonel Craft MD Technologist: Newton Roy Exam Location: [facility] Indication: chf BP: 152 / 81 HR: 69 Rhythm: Sinus Technical Quality: Adequate MEASUREMENTS (Male / Female) Normal Values 2D ECHO LV Diastolic Diameter PLAX 4.2 cm 4.2 - 5.9 / 3.9 - 5.3 cm IVS Diastolic Thickness 1.5 cm 0.6 - 1.0 / 0.6 - 0.9 cm IVS Systolic Thickness 1.6 cm LVPW Diastolic Thickness 1.4 cm 0.6 - 1.0 / 0.6 - 0.9 cm LVPW Systolic Thickness 1.4 cm LVOT Diameter 2.3 cm LV Ejection Fraction 2D Teich 48.6 % LV Ejection Fraction MOD 4C 45.5 % LV Ejection Fraction MOD 2C 54.2 % LV Ejection Fraction 2C AL 53.3 % LA Diameter 4.0 cm RA Systolic Volume 4C AL 41.4 ml RA Systolic Volume 4C MOD 39.7 ml LA Sys Volume AL 47.4 cm cubed LA Sys Volume Index AL 21.2 cm cubed/m squared Aorta at Sinotubular Diameter 1.8 cm IVC Diameter 2.0 cm M-MODE LA Ao Ratio MM 1.4 AV Cusp Separation MM 1.2 cm DOPPLER MV Peak Velocity 91.0 cm/s MV Area PHT 4.5 cm squared Mitral E to A Ratio 1.0 TR Peak Velocity 386.0 cm/s TR Peak Gradient 59.6 mmHg TR Mean Velocity 277.0 cm/s TR Mean Gradient 34.8 mmHg TR Velocity Time Integral 93.3 cm PV Peak Velocity 131.0 cm/s RV Ejection Time 0.3 s FINDINGS Left Ventricle Normal left ventricular size, systolic function and wall thickness, with no regional wall motion abnormalities. Left ventricular ejection fraction is estimated at 55 %. Grade I/IV diastolic dysfunction (abnormal relaxation filling pattern), normal to mildly elevated filling pressures. Right Ventricle The right ventricle is normal in size and function. Right Atrium The right atrium is normal in size. Left Atrium The left atrium is normal in size. Mitral Valve Moderately thickened mitral valve. No mitral valve stenosis. Trace mitral valve regurgitation. Aortic Valve Moderate aortic valve calcification. Trace aortic valve regurgitation. Tricuspid Valve Structurally normal tricuspid valve without significant stenosis or regurgitation. Pulmonary artery systolic pressure is normal. Pulmonic Valve Structurally normal pulmonic valve without significant stenosis. There is no pulmonic regurgitation. Pericardium Normal pericardium without effusion. Aorta Normal ascending aorta dimension. IVC The inferior vena cava appears normal. CONCLUSIONS Normal left ventricular size, systolic function and wall thickness, with no regional wall motion abnormalities. Left ventricular ejection fraction is estimated at 55 %. Grade I/IV diastolic dysfunction (abnormal relaxation filling pattern), normal to mildly elevated filling pressures. There is no pericardial effusion. No significant valve abnormalities. Right atrial pressure is around 5 mm of mercury. Moreno Mac MD (Electronically Signed) Final Date: 12 June 2024 20:43 S
== END 2024-06-12 15:49 | disposition home or self-care (01) ==
LOC: ER 17:27 → ER IP 17:57 → MEDSURG 18:44
PROVIDERS: Student in an Organized Health Care Education/Training Program; Admitting Provider Student in an Organized Health Care Education/Training Program; Emergency Provider Nurse Practitioner; PCP Electrodiagnostic Medicine; Visit Provider Student in an Organized Health Care Education/Training Program
DX: E11.65 Type 2 diabetes mellitus with hyperglycemia (principal); U07.1 COVID-19; I25.10 Atherosclerotic heart disease of native coronary artery without angina pectoris; E78.2 Mixed hyperlipidemia; I11.0 Hypertensive heart disease with heart failure; I50.9 Heart failure, unspecified; E03.9 Hypothyroidism, unspecified; F33.0 Major depressive disorder, recurrent, mild; I73.9 Peripheral vascular disease, unspecified; R00.0 Tachycardia, unspecified; J44.89 Other specified chronic obstructive pulmonary disease; R79.89 Other specified abnormal findings of blood chemistry; Z95.820 Peripheral vascular angioplasty status with implants and grafts; Z96.643 Presence of artificial hip joint, bilateral; Z87.891 Personal history of nicotine dependence; Z79.899 Other long term (current) drug therapy; Z79.84 Long term (current) use of oral hypoglycemic drugs; Z79.890 Hormone replacement therapy; Z79.82 Long term (current) use of aspirin; Z88.8 Allergy status to other drugs, medicaments and biological substances; Z85.038 Personal history of other malignant neoplasm of large intestine
CPT/HCPCS: 36415; 36416; 71045; 71275; 80053; 80061; 82009; 82607; 82746; 82962; 83036; 83540; 83550; 83605; 83721; 83735; 83880; 84100; 84145; 84443; 84484; 85025; 87637; 93005; 93306; 94640; 96372; 96374; 96375; 96376; 99285; G0378; J1644; J1815; J2470; J7030; J7626

== ENCOUNTER 2024-08-26 15:02 | Emergency (ER) | payer MEDICARE, SELFPAY ==
[2024-08-26 15:07] VITALS: BP 126/72; PULSE 79; RESP 18; TEMP 36.6; O2SAT 92; BMI 33.3
--- NOTE | 2024-08-26 15:13 | ECG_ITS ---
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1955 Requested By: Gio Landeros Order Number: [id number] Reading MD: ANSON GODINEZ Measurements Intervals [place] Rate: 76 P: 54 CT: 135 QRS: -36 QRSD: 147 T: -17 QT: 395 QTc: 447 Interpretive Statements SINUS RHYTHM WITH OCCASIONAL VENTRICULAR PREMATURE COMPLEXES LEFT AXIS DEVIATION [QRS AXIS < -30] RIGHT BUNDLE BRANCH BLOCK [120+ ms QRS DURATION, UPRIGHT V1, 40+ ms S IN I/aVL/V4/V5/V6] MINIMAL VOLTAGE CRITERIA FOR LVH, CONSIDER NORMAL VARIANT [MEETS CRITERIA IN ONE OF: R(aVL), S(V1), R(V5), R(V5/V6)+S(V1)] Compared to ECG 06/11/2024 21:09:30 Ventricular premature complex(es) now present Left-axis deviation now present Left anterior fascicular block no longer present Electronically Signed On 08-29-2024 21:00:16 CDT by ANSON GODINEZ [email or web address]
--- NOTE | 2024-08-26 15:30 | XRR_ITS ---
PROCEDURE INFORMATION: Exam: XR Chest Exam date and time: 08/26/2024 3:52 PM Age: 69 years old Clinical indication: Other: Dizziness; Prior surgery; Surgery date: 6+ months; Surgery type: Cardiac stent TECHNIQUE: Imaging protocol: Radiologic exam of the chest. Views: 1 view. COMPARISON: CT angio chest PE protcl [id number] 06/11/2024 3:27 PM FINDINGS: Lungs: Unremarkable. No consolidation. Pleural spaces: Unremarkable. No pleural effusion. No pneumothorax. Heart/Mediastinum: Unremarkable. No cardiomegaly. Bones/joints: Unremarkable. XR/XR chest 1V portable [id number] IMPRESSION: No acute findings.
--- NOTE | 2024-08-26 15:31 | W.ED.DIZZY ---
HPI - Dizziness General: Chief Complaint: Dizziness Stated Complaint: dizzy spells Time Seen by Provider: 08/26/24 15:17 Source: patient Mode of arrival: ambulatory Limitations: no limitations History of Present Illness: HPI Narrative: Patient is a nice 69-year-old male who presents to ED today for evaluation of dizzy spells . States over the past 5 days he has been having intermittent episodes of dizziness where he feels like the room is waving by . States episodes last anywhere from 10 to 30 seconds before subsiding on their own. He states he will have anywhere from 5-6 episodes a day. He does feel like they are worse with position. In between episodes he states he is asymptomatic. He has continued to be ambulatory. No headache or visual changes. He is not having any chest pain, shortness of breath, difficulty breathing, palpitations. States he does have a history of asthma and COPD and used to be on oxygen but Dr. Huerta took him off of this a few years ago. PMH is also significant for peripheral vascular disease, hypertension, coronary artery disease, and diabetes. He states his last hemoglobin A1c was around 13. Primary care is Dr. Horn. He is also had a few episodes of stomach queasiness and vomiting. At time of my examination he is not having any abdominal pain and does not feel nauseous now. MD elicited complaint: dizziness Onset (ago): day(s) Timing: intermittent Severity: mild Description: room spinning Context: change in body position History of similar symptoms: No Exacerbating factors: change in body position Associated symptoms: Reports nausea (none now); Denies chest pain, chills, headache(s), malaise, palpitations, syncope or vomiting Associated neuro symptoms: Deny confusion or numbness in extremities Stroke scale total: 0 Related Data Home Medications ?Medication ?Instructions ?Recorded ?Confirmed amlodipine 10 mg tablet 10 mg PO DAILY 06/16/19 08/26/24 aspirin 81 mg tablet,delayed 81 mg PO DAILY 06/16/19 08/26/24 release (Adult Low Dose Aspirin) clopidogrel 75 mg tablet 75 mg PO DAILY 06/16/19 08/26/24 nitroglycerin 0.4 mg sublingual 0.4 mg sublingual Q5M PRN Chest 07/10/21 08/26/24 tablet (Nitrostat) Pain sertraline 100 mg tablet (Zoloft) 100 mg PO DAILY 07/10/21 08/26/24 atorvastatin 40 mg tablet 40 mg PO QPM 08/26/24 08/26/24 glyburide micronized 3 mg tablet 3 mg PO DAILY 08/26/24 08/26/24 levothyroxine 175 mcg tablet 175 mcg PO QAM 08/26/24 08/26/24 metformin 1,000 mg tablet 1,000 mg PO BID 08/26/24 08/26/24 metoprolol tartrate 25 mg tablet 25 mg PO BID 08/26/24 08/26/24 ondansetron 8 mg disintegrating 8 mg PO TID PRN Nausea 08/26/24 08/26/24 tablet pantoprazole 40 mg tablet,delayed 40 mg PO QAM 08/26/24 08/26/24 release pyridoxine (vitamin B6) 100 mg 100 mg PO DAILY 08/26/24 08/26/24 tablet (Vitamin B-6) semaglutide 0.25 mg or 0.5 mg (2 0.25 mg SUBCUT Q7D 08/26/24 08/26/24 mg/3 mL) subcutaneous pen injector (Level) Previous Rx's ?Medication ?Instructions ?Recorded chlorthalidone 25 mg tablet 50 mg (2 x 25 mg) PO DAILY #90 tabs 07/10/21 blood-glucose meter (Blood Glucose #1 ea 06/12/24 Monitoring kit) lancets #100 ea 06/12/24 pen needle, diabetic 32 gauge x #50 ea 06/12/2405/07 (BD Ultra-Fine Micro Pen Needle) Allergies Allergy/AdvReac Type Severity Reaction Status Date / Time lisinopril Allergy Unknown Verified 08/26/24 15:10 Review of Systems Const: Denies: fever(s), chills, body aches, fatigue or malaise Eyes: Denies: change in vision, blurry vision, photophobia, floaters or seeing flashes Card: Denies: chest pain, palpitations, irregular heart rhythm, edema, swelling of feet/ankles, lightheadedness, syncope or pre-syncope Resp: Denies: dyspnea GI: Reports: nausea (none now); Denies: abdominal pain, vomiting or diarrhea : Denies: flank pain, dysuria or hematuria Musc: Denies: neck pain, back pain, extremity pain, extremity swelling or joint swelling Skin/Breast: Denies: rash Neuro: Reports: dizziness; Denies: headache(s), numbness in extremities, weakness in extremities, sensory changes, lack of coordination, difficulty walking, frequent falls, confusion, behavioral changes, Slurred speech present, difficulty communicating thoughts or seizure-like activity [facility] ED PFSH: Medical History Uncontrolled hypertension History of colon cancer Hypothyroidism Hx of coronary atherosclerosis Anemia Obesity Cellulitis Oxygen dependent Venous stasis of lower extremity Bilateral carotid artery stenosis PVD (peripheral vascular disease) Mixed hyperlipidemia Benign essential hypertension CHF (congestive heart failure) Peripheral artery disease Coronary artery disease Diabetes mellitus COPD (chronic obstructive pulmonary disease) Major depressive disorder, recurrent, mild Surgical History Hx of shoulder surgery S/P percutaneous transluminal angioplasty ([employer]) with stent placement History of bilateral hip arthroplasty Family History Mother CAD (coronary artery disease) Diabetes Father CAD (coronary artery disease) Denies family history of Clotting disorder Anesthesia complication Bleeding disorder Social History Smoking and tobacco/nicotine status: former use of tobacco/nicotine Quit status (tobacco/nicotine): has quit using Year quit tobacco: age 26 Former quit date comment: 1ppd x 3years Alcohol intake: never Substance/Drug Use: never Physical Exam Const: COMMON NORMALS: no acute distress, average body habitus, patient oriented x3, no limitations, alert and well nourished GENERAL APPEARANCE: cooperative, comfortable, well kempt and well developed HENMT: COMMON NORMALS: normocephalic, atraumatic and TM's normal bilaterally HEAD & SCALP: normal to inspection, normocephalic and atraumatic FACE & SINUS: normal facial exam and face symmetric TYMPANIC MEMBRANE: TM's normal bilaterally Eye: COMMON NORMALS: Equal, round and reactive pupils present, EOMs intact bilaterally and conjunctivae normal GENERAL EYE: appearance normal, both eyes and all related structures and normal light reflex VISUAL ACUITY: Yes acuity normal ALIGNMENT: Yes alignment normal PERIORBITAL: periorbital findings normal EYELID: eyelids normal CONJUNCTIVA: Yes conjunctivae normal PUPIL: Yes Equal, round and reactive pupils present DIRECT OPHTHALMOSCOPY: Yes normal light reflex OTHER: mild horizontal nystagmus Neck/C-Spine: COMMON NORMALS: full ROM, no lymphadenopathy, supple, no meningeal signs and no JVD Chest: COMMONS NORMALS: normal inspection of the chest Resp: COMMON NORMALS: normal respiratory effort and clear to auscultation bilaterally AUSCULTATION: clear to auscultation bilaterally Cardio: COMMON NORMALS: no JVD, regular rate and regular rhythm RATE: regular rate RHYTHM: regular rhythm GI: COMMON NORMALS: Normal to inspection, nondistended, normoactive bowel sounds present, Soft to palpation, non-tender, No hepatosplenomegaly present and no masses PALPATION: Yes Soft to palpation and Yes No hepatosplenomegaly present Extremity: COMMON NORMALS: normal to inspection GENERAL: Yes normal exam except as noted Neuro: DARIELA COMA SCALE: document GCS findings [place] coma scale eye opening: Spontaneous Dariela coma scale verbal response: Orientated [place] coma scale motor response: Obey commands [place] coma scale total score: 15 COMMON NORMALS: patient oriented x3, CN's II-XII intact bilaterally, moves all extremities, no focal motor deficits and no sensory deficits noted SENSORIUM/ORIENTATION: Yes alert MENINGEAL SIGNS: Yes no meningeal signs Psych: APPEARANCE: Yes grossly normal and Yes well kempt Skin: COMMON NORMALS: no rashes or lesions noted GENERAL SKIN EXAM: no rashes or lesions noted Course Vital Signs: Vital signs: Vital Signs Temperature 97.8 F 08/26/24 15:07 Pulse Rate 79 08/26/24 15:07 Respiratory Rate 18 08/26/24 15:07 Blood Pressure 126/72 08/26/24 15:07 Pulse Oximetry 92 08/26/24 15:07 Oxygen Delivery Me thod Room Air 08/26/24 15:07 MDM - Dizziness Medical Decision Making I do not have any suspicion for central etiology for patient's vertigo. Physical exam is fairly benign. Vital signs are stable. His blood work is unremarkable apart from hyperglycemia. He did mention his last A1c was over 13. He has follow-up with primary care on Thursday. As of now he is only taking Ozempic and metformin for his diabetes. At this time patient is cleared from the emergency standpoint with recommendations to follow-up on Thursday. Return to ED precautions discussed. Medical Records I reviewed the patient's medical records. Lab Data I reviewed the patient's lab results. 08/26/24 15:39 08/26/24 15:39 Radiology Impressions Chest X-Ray 08/26/24 15:30 IMPRESSION: No acute findings. Laboratory Results WBC 8.96 10^3/uL (3.29-11.43) 08/26/24 15:39 RBC 4.79 10^6/uL (3.85-5.65) 08/26/24 15:39 Hgb 14.10 g/dL (11.27-16.99) 08/26/24 15:39 Hct 43.3 % (37-53) 08/26/24 15:39 MCV 90.4 fl (82-101) 08/26/24 15:39 MCH 29.4 pg (27-33) 08/26/24 15:39 MCHC 32.6 g/dL (30-55) 08/26/24 15:39 RDW 12.4 % (12.1-15.1) 08/26/24 15:39 Plt Count 242 10^3/cmm (157-399) 08/26/24 15:39 MPV 9.4 fL (7.4-10.4) 08/26/24 15:39 Neut % (Auto) 74.6 % 08/26/24 15:39 Lymph % (Auto) 14.5 % 08/26/24 15:39 [place] % (Auto) 8.7 % 08/26/24 15:39 Eos % (Auto) 1.0 % 08/26/24 15:39 Baso % (Auto) 0.6 % 08/26/24 15:39 Neut # (Auto) 6.69 10^3/uL (1.8-7.7) 08/26/24 15:39 Lymph # (Auto) 1.3 10^3/uL (0.8-4.8) 08/26/24 15:39 [place] # (Auto) 0.8 10^3/uL (0.2-0.9) 08/26/24 15:39 Eos # (Auto) 0.1 10^3/uL (0.0-0.8) 08/26/24 15:39 Baso # (Auto) 0.1 10^3/uL (0.0-0.1) 08/26/24 15:39 Nucleated RBC % (auto) 0 % 08/26/24 15:39 Nucleated RBCs # 0.0 /100WBC 08/26/24 15:39 Sodium 134 mmol/L (136-145) L 08/26/24 15:39 Potassium 4.2 mmol/L (3.5-5.1) 08/26/24 15:39 Chloride 92 mmol/L (98-107) L 08/26/24 15:39 Carbon Dioxide 26 mmol/L (22-29) 08/26/24 15:39 Anion Gap 20.2 (5-19) H 08/26/24 15:39 BUN 15 mg/dL (8-23) 08/26/24 15:39 Creatinine 1.0 mg/dL (0.7-1.2) 08/26/24 15:39 GFR Calculation 74.5 mL/min (90-130) L 08/26/24 15:39 Glucose 403 mg/dL (65-115) H 08/26/24 15:39 Calculated Osmolality 296 mOsm/kg (285-295) H 08/26/24 15:39 Calcium 9.3 mg/dL (8.5-10.5) 08/26/24 15:39 Total Bilirubin 0.8 mg/dL (0.15-1.2) 08/26/24 15:39 AST 14 U/L (0-40) 08/26/24 15:39 ALT 15 U/L (0-41) 08/26/24 15:39 Alkaline Phosphatase 78 U/L (40-130) 08/26/24 15:39 Total Protein 7.1 g/dL (6.6-8.7) 08/26/24 15:39 Albumin 3.9 g/dL (3.5-5.2) 08/26/24 15:39 Globulin 3.2 g/dL (1.3-4.6) 08/26/24 15:39 Serum Ketones Negative (Negative) 08/26/24 15:39 All radiology interpretation(s) finalized by discharge Discharge Plan Discharge Patient Disposition: Home Clinical Impression: Dizziness Uncontrolled diabetes mellitus Qualifiers: Diabetes mellitus type: type 2 Glycemic state: with hyperglycemia Qualified Code(s): E11.65 - Type 2 diabetes mellitus with hyperglycemia Condition: Stable Prescriptions: No Action sertraline [Zoloft] 100 mg tablet 100 mg PO DAILY nitroglycerin [Nitrostat] 0.4 mg tablet, sublingual 0.4 mg sublingual Q5M PRN (Reason: Chest Pain) Rx Instructions: do not exceed 3 doses per episode chlorthalidone 25 mg tablet 50 mg PO DAILY Qty: 90 3RF amlodipine 10 mg tablet 10 mg PO DAILY aspirin [Adult Low Dose Aspirin] 81 mg tablet,delayed release (DR/EC) 81 mg PO DAILY clopidogrel 75 mg tablet 75 mg PO DAILY (DME) lancets Misc See Rx Instructions .ROUTE .MEDSUPPLY Qty: 100 0RF Rx Instructions: As directed (DME) blood-glucose meter [Blood Glucose Monitoring] Kit See Rx Instructions .ROUTE .MEDSUPPLY Qty: 1 0RF Rx Instructions: As directed (DME) pen needle, diabetic [BD Ultra-Fine Micro Pen Needle] 32 gauge x 1/4 needle See Rx Instructions .ROUTE .MEDSUPPLY Qty: 50 0RF Rx Instructions: As directed levothyroxine 175 mcg tablet 175 mcg PO QAM pyridoxine (vitamin B6) [Vitamin B-6] 100 mg Tablet 100 mg PO DAILY atorvastatin 40 mg tablet 40 mg PO QPM ondansetron 8 mg tablet,disintegrating 8 mg PO TID PRN (Reason: Nausea) pantoprazole 40 mg tablet,delayed release (DR/EC) 40 mg PO QAM metformin 1,000 mg tablet 1,000 mg PO BID glyburide micronized 3 mg tablet 3 mg PO DAILY metoprolol tartrate 25 mg tablet 25 mg PO BID Ozempic 0.25 mg or 0.5 mg (2 mg/3 mL) Pen Injector 0.25 mg SUBCUT Q7D Discharge Orders: Discharge ED (Routine); Ordered 08/26/24 Ordered By: Hillary Brwon Referrals: Brendan Horn DO [Primary Care Provider] - Activity Restrictions/Additional Instructions: As we discussed, please follow-up with your primary care provider on Thursday as scheduled. Blood work here overall was unremarkable apart from your blood sugars which were 403. You were given fluid and insulin for this. Please speak to Dr. Horn in regards to better glycemic control as you mentioned your last hemoglobin A1c was over 13. We discussed possibly using meclizine to help with any dizziness episodes although you are stating these are very brief. You may return to the emergency department at anytime for any further concerns you may have. Print Language: Thai Coding Level of Care Code ED Cook Vacuum Kettle for Crystal Junior
[2024-08-26 16:00] LABS: Basophils # 0.1 10^3/uL (0.0-0.1); Basophils % 0.6 %; Eosinophils # 0.1 10^3/uL (0.0-0.8); Hematocrit 43.3 % (37-53); Lymphocytes # 1.3 10^3/uL (0.8-4.8); Lymphocytes % 14.5 %; Mean Corpuscular HGB Conc 32.6 g/dL (30-55); Mean Corpuscular Hemoglobin 29.4 pg (27-33); Mean Corpuscular Volume 90.4 fl (82-101); Mean Platelet Volume 9.4 fL (7.4-10.4); Monocytes # 0.8 10^3/uL (0.2-0.9); Monocytes % 8.7 %; Neutrophils # 6.69 10^3/uL (1.8-7.7); Neutrophils % 74.6 %; Nucleated Red Blood Cells % 0 %; Platelet Count 242 10^3/cmm (157-399); Red Blood Count 4.79 10^6/uL (3.85-5.65); Red Cell Distribution Width 12.4 % (12.1-15.1); White Blood Count 8.96 10^3/uL (3.29-11.43)
[2024-08-26 16:10] LABS: Alanine Aminotransferase 15 U/L (0-41); Albumin Level 3.9 g/dL (3.5-5.2); Alkaline Phosphatase 78 U/L (40-130); Anion Gap 20.2 (5-19); Aspartate Amino Transferase 14 U/L (0-40); Blood Urea Nitrogen 15 mg/dL (8-23); Calcium 9.3 mg/dL (8.5-10.5); Carbon Dioxide 26 mmol/L (22-29); Chloride 92 mmol/L (98-107); Creatinine Clr Calc Pharmacy 79.3936; Globulin 3.2 g/dL (1.3-4.6); Glomerular Filtration Rate 74.5 mL/min (90-130); Glucose 403 mg/dL (65-115); Osmolality Calculated 296 mOsm/kg (285-295); Potassium 4.2 mmol/L (3.5-5.1); Sodium 134 mmol/L (136-145); Total Bilirubin 0.8 mg/dL (0.15-1.2); Total Protein 7.1 g/dL (6.6-8.7)
[2024-08-26 16:48] LABS: Ketone (Acetest) Serum Negative (Negative)
[2024-08-26] MEDS: sodium chloride 0.9% 1,000 ML 999 ML IV (16:50)
[2024-08-26] MEDS: insulin regular-human 100 units/1 mL 10 UNIT IVP (16:54)
[2024-08-26 17:59] LABS: Glucose Point of Care 192 mg/dL (70-110)
[2024-08-26 18:12] VITALS: BP 146/79; PULSE 71; O2SAT 95
[2024-08-26 18:14] VITALS: BP 146/79; PULSE 71; O2SAT 95
== END 2024-08-26 18:15 | disposition home or self-care (01) ==
PROVIDERS: Emergency Provider Physician Assistant; PCP Electrodiagnostic Medicine
DX: R42 Dizziness and giddiness (principal); E11.65 Type 2 diabetes mellitus with hyperglycemia; Z79.82 Long term (current) use of aspirin; Z79.02 Long term (current) use of antithrombotics/antiplatelets; Z79.84 Long term (current) use of oral hypoglycemic drugs; Z87.891 Personal history of nicotine dependence; J44.9 Chronic obstructive pulmonary disease, unspecified; I25.10 Atherosclerotic heart disease of native coronary artery without angina pectoris; Z85.038 Personal history of other malignant neoplasm of large intestine; E78.2 Mixed hyperlipidemia; I11.0 Hypertensive heart disease with heart failure; I50.9 Heart failure, unspecified
CPT/HCPCS: 36415; 36416; 71045; 80053; 82009; 82962; 85025; 93005; 96361; 96374; 99285; J1815; J7030

== ENCOUNTER 2024-09-23 16:24 | Emergency (ER) | payer MEDICARE, SELFPAY ==
[2024-09-23] VITALS (8 sets, daily range): BP systolic 118–155; BP diastolic 59–70; PULSE 65–90; RESP 17; TEMP 36.8; O2SAT 91–95; BMI 31.9
--- NOTE | 2024-09-23 16:44 | ECG_ITS ---
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: : 1955 Requested By: Linda Landeros Order Number: [id number] Cynthia MD: ANSON GODINEZ Measurements Intervals [place] Rate: 81 P: 43 WV: 144 QRS: -39 QRSD: 156 T: 39 QT: 395 QTc: 461 Interpretive Statements SINUS RHYTHM LEFT AXIS DEVIATION [QRS AXIS < -30] RIGHT BUNDLE BRANCH BLOCK [120+ ms QRS DURATION, UPRIGHT V1, 40+ ms S IN I/aVL/V4/V5/V6] MODERATE VOLTAGE CRITERIA FOR LVH, CONSIDER NORMAL VARIANT [MEETS CRITERIA IN ONE OF: R(aVL), S(V1), R(V5), R(V5/V6)+S(V1)] Compared to ECG 08/26/2024 15:13:20 Ventricular premature complex(es) no longer present Electronically Signed On 09-26-2024 19:06:58 CDT by ANSON GODINEZ [email or web address]
--- NOTE | 2024-09-23 16:45 | XRR_ITS ---
PROCEDURE INFORMATION: Exam: XR Chest Exam date and time: 09/23/2024 5:06 PM Age: 69 years old Clinical indication: Other: Weakness; Prior surgery; Surgery date: 6+ months; Surgery type: Stent TECHNIQUE: Imaging protocol: Radiologic exam of the chest. Views: 1 view. COMPARISON: CR XR chest 1V portable [id number] 08/26/2024 3:52 PM FINDINGS: Lungs: Unremarkable. No consolidation. Pleural spaces: Unremarkable. No pleural effusion. No pneumothorax. Heart/Mediastinum: Stable cardiomediastinal silhouette. Vasculature: Aortic calcifications. Bones/joints: Unremarkable. XR/XR chest 1V portable [id number] IMPRESSION: No acute cardiopulmonary process.
--- NOTE | 2024-09-23 16:59 | PC.NURSE ---
this nurse asked pt for urine sample, pt states Not now but maybe here in a little bit Pt given hand held urinal and call light.
--- NOTE | 2024-09-23 17:03 | W.ED.SOB ---
HPI - SOB/Dyspnea General: Chief Complaint: Shortness of Breath/Dyspnea Stated Complaint: diziness, weakness Time Seen by Provider: 09/23/24 16:39 History of Present Illness: HPI Narrative: 69-year-old man with a history of morbid obesity, hyperlipidemia, COPD, hypertension, diabetes, coronary artery disease with stents on Plavix who presents to the emergency room [place] weakness, shortness of breath and lightheadedness. This been going on for couple of days. He had some chest discomfort as well. Related Data Home Medications ?Medication ?Instructions ?Recorded ?Confirmed amlodipine 10 mg tablet 10 mg PO DAILY 06/16/19 08/26/24 aspirin 81 mg tablet,delayed 81 mg PO DAILY 06/16/19 08/26/24 release (Adult Low Dose Aspirin) clopidogrel 75 mg tablet 75 mg PO DAILY 06/16/19 08/26/24 nitroglycerin 0.4 mg sublingual 0.4 mg sublingual Q5M PRN Chest 07/10/21 08/26/24 tablet (Nitrostat) Pain sertraline 100 mg tablet (Zoloft) 100 mg PO DAILY 07/10/21 08/26/24 atorvastatin 40 mg tablet 40 mg PO QPM 08/26/24 08/26/24 glyburide micronized 3 mg tablet 3 mg PO DAILY 08/26/24 08/26/24 levothyroxine 175 mcg tablet 175 mcg PO QAM 08/26/24 08/26/24 metformin 1,000 mg tablet 1,000 mg PO BID 08/26/24 08/26/24 metoprolol tartrate 25 mg tablet 25 mg PO BID 08/26/24 08/26/24 ondansetron 8 mg disintegrating 8 mg PO TID PRN Nausea 08/26/24 08/26/24 tablet pantoprazole 40 mg tablet,delayed 40 mg PO QAM 08/26/24 08/26/24 release pyridoxine (vitamin B6) 100 mg 100 mg PO DAILY 08/26/24 08/26/24 tablet (Vitamin B-6) semaglutide 0.25 mg or 0.5 mg (2 0.25 mg SUBCUT Q7D 08/26/24 08/26/24 mg/3 mL) subcutaneous pen injector (Ozempic) Previous Rx's ?Medication ?Instructions ?Recorded chlorthalidone 25 mg tablet 50 mg (2 x 25 mg) PO DAILY #90 tabs 07/10/21 blood-glucose meter (Blood Glucose #1 ea 06/12/24 Monitoring kit) lancets #100 ea 06/12/24 pen needle, diabetic 32 gauge x #50 ea 06/12/2405/07 (BD Ultra-Fine Micro Pen Needle) Allergies Allergy/AdvReac Type Severity Reaction Status Date / Time lisinopril Allergy Unknown Verified 08/26/24 15:10 Review of Systems Narrative: Constitutional symptoms: Negative except as documented in HPI. Skin symptoms: Negative except as documented in HPI. Eye symptoms: Negative except as documented in HPI. ENMT symptoms: Negative except as documented in HPI. Respiratory symptoms: Negative except as documented in HPI. Cardiovascular symptoms: Negative except as documented in HPI. Gastrointestinal symptoms: Negative except as documented in HPI. Genitourinary symptoms: Negative except as documented in HPI. Musculoskeletal symptoms: Negative except as documented in HPI. Neurologic symptoms: Negative except as documented in HPI. Psychiatric symptoms: Negative except as documented in HPI. Endocrine symptoms: Negative except as documented in HPI. 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 Skin: Warm, dry. Head: Normocephalic, atraumatic. Neck: Supple, trachea midline. Eye: Extraocular movements are intact. Ears, nose, mouth and throat: mucosa moist. Cardiovascular: Regular, Normal peripheral perfusion. Respiratory: Lungs are clear to auscultation, respirations are non-labored, breath sounds are equal, Symmetrical chest wall expansion. Gastrointestinal: Soft, Nontender, Non distended Musculoskeletal: Normal ROM, no deformity. Neurological: Alert and oriented, No focal neurological deficit observed. Psychiatric: Cooperative, appropriate mood & affect. Course Vital Signs: Vital signs: Vital Signs Temperature 98.2 F 09/23/24 16:35 Pulse Rate 65 09/23/24 20:52 Respiratory Rate 17 09/23/24 16:35 Blood Pressure 140/70 09/23/24 20:52 Pulse Oximetry 95 09/23/24 20:52 Oxygen Delivery Me thod Room Air 09/23/24 20:00 MDM - SOB/Dyspnea Medical Decision Making Medical decision making: Differential diagnosis for patient presenting with generalized weakness including but not limited to and based on the above HPI, review of systems and physical exam: Sepsis. Dehydration. Renal failure. Electrolyte abnormalities. Anemia. Congestive heart failure. Hypotension. Coronary syndrome. Hepatitis. Cirrhosis. Infections such as pneumonia, urinary tract infection, [place] illness, Cellulitis, Viral infections including influenza and Covid-19. Workup: labwork and lab/exam driven imaging ordered to evaluate, rule in and rule out above pathologies. EKG: Time 1643. Rate 81. Normal sinus rhythm, No ST-T changes, no ectopy, right bundle branch block, This was reviewed and interpreted by myself the ER physician at 1650. Chest x-ray: No acute process. No infiltrate. No pneumothorax. This was reviewed and interpreted by myself the emergency room physician. I also reviewed the radiology report. Lab Review: Laboratory results were reviewed and interpreted by myself the emergency room physician. No leukocytosis. No anemia. Patient does have some acute renal insufficiency with a BUN/creatinine of 28 and 1.4. His baseline is usually around 1. Fluids are being given. He says he feels better after the fluids. Serial cardiac markers are negative. Urinalysis is negative for infection. His lactate is a bit elevated perhaps due to his dehydration. But no signs of acidosis or any signs of infection. His glucose was elevated at 350 but that came down with fluids. Repeat EKG: Normal sinus rhythm, No ST-T changes, no ectopy, right bundle branch block, This was reviewed and interpreted by myself the ER physician at 1845. No changes from EKG done previously today in the emergency room. I reviewed the patient's medical record. Reexamination: Patient remained stable. No increased work of breathing. No altered mental status. No focal motor deficits. Assessment and plan: Dehydration Acute renal insufficiency Hyperglycemia ? Normal saline bolus in the emergency room. - Discharged home - Discussed plan with patient. Answered any questions. - Evaluation and treatment of this problem were appropriate in the emergency setting. Lab Data 09/23/24 16:57 09/23/24 16:57 Labs/Radiology: Radiology Impressions Chest X-Ray 09/23/24 16:45 IMPRESSION: No acute cardiopulmonary process. Laboratory Results WBC 7.92 10^3/uL (3.29-11.43) 09/23/24 16:57 RBC 4.44 10^6/uL (3.85-5.65) 09/23/24 16:57 Hgb 13.60 g/dL (11.27-16.99) 09/23/24 16:57 Hct 40.2 % (37-53) 09/23/24 16:57 MCV 90.5 fl (82-101) 09/23/24 16:57 MCH 30.6 pg (27-33) 09/23/24 16:57 MCHC 33.8 g/dL (30-55) 09/23/24 16:57 RDW 12.3 % (12.1-15.1) 09/23/24 16:57 Plt Count 281 10^3/cmm (157-399) 09/23/24 16:57 MPV 9.3 fL (7.4-10.4) 09/23/24 16:57 Neut % (Auto) 71.0 % 09/23/24 16:57 Lymph % (Auto) 17.4 % 09/23/24 16:57 Davidson % (Auto) 8.8 % 09/23/24 16:57 Eos % (Auto) 1.9 % 09/23/24 16:57 Baso % (Auto) 0.6 % 09/23/24 16:57 Neut # (Auto) 5.62 10^3/uL (1.8-7.7) 09/23/24 16:57 Lymph # (Auto) 1.4 10^3/uL (0.8-4.8) 09/23/24 16:57 Davidson # (Auto) 0.7 10^3/uL (0.2-0.9) 09/23/24 16:57 Eos # (Auto) 0.2 10^3/uL (0.0-0.8) 09/23/24 16:57 Baso # (Auto) 0.1 10^3/uL (0.0-0.1) 09/23/24 16:57 Nucleated RBC % (auto) 0 % 09/23/24 16:57 Nucleated RBCs # 0.0 /100WBC 09/23/24 16:57 Specimen Type Arterial 09/23/24 17:06 Sample Site Radial, right 09/23/24 17:06 ABG pH 7.37 (7.35-7.45) 09/23/24 17:06 ABG pCO2 43.2 mmHg (35-45) 09/23/24 17:06 ABG pO2 60.6 mmHg (80.0-100.0) L 09/23/24 17:06 ABG PO2/FiO2 Ratio 288 09/23/24 17:06 ABG HCO3 24.7 mmol/L (22-26) 09/23/24 17:06 ABG O2 Saturation 91.6 09/23/24 17:06 ABG Base Excess -0.8 mmol/L (-2.0-2.0) 09/23/24 17:06 Fernando Test Pos 09/23/24 17:06 A-a O2 Gradient 4.7 mmHg (5-10) L 09/23/24 17:06 Hematocrit 43.7 % (42-52) 09/23/24 17:06 Hgb O2 Saturation 89.1 % (95-100) L 09/23/24 17:06 Carboxyhemoglobin 1.9 %THgb (0.4-20.1) 09/23/24 17:06 Methemoglobin 0.8 % (0.4-1.5) 09/23/24 17:06 Total Hemoglobin 14.3 g/dL (14-18) 09/23/24 17:06 Sodium 136.0 mmol/L (131-143) 09/23/24 17:06 Potassium 3.9 mmol/L (3.5-5.0) 09/23/24 17:06 Glucose 350.0 mg/dL (70-115) H 09/23/24 17:06 Ionized Calcium 1.2 mmol/L (1.1-1.4) 09/23/24 17:06 O2 Delivery Device Room air 09/23/24 17:06 FiO2 21.0 % 09/23/24 17:06 Insurance Compliance Analyst ID [place] 09/23/24 17:06 Sodium 135 mmol/L (136-145) L 09/23/24 16:57 Potassium 4.1 mmol/L (3.5-5.1) 09/23/24 16:57 Chloride 95 mmol/L (98-107) L 09/23/24 16:57 Carbon Dioxide 22 mmol/L (22-29) 09/23/24 16:57 Anion Gap 22.1 (5-19) H 09/23/24 16:57 BUN 28 mg/dL (8-23) H 09/23/24 16:57 Creatinine 1.4 mg/dL (0.7-1.2) H 09/23/24 16:57 GFR Calculation 50.5 mL/min (90-130) L 09/23/24 16:57 Glucose 372 mg/dL (65-115) H 09/23/24 16:57 POC Glucose 258 mg/dL (70-110) H 09/23/24 18:53 Calculated Osmolality 301 mOsm/kg (285-295) H 09/23/24 16:57 Lactic Acid 3.7 mmol/L (0.5-2.2) H 09/23/24 16:57 Lactic Acid (Sepsis) 1.8 mmol/L (0.5-2.2) 09/23/24 19:43 Calcium 9.1 mg/dL (8.5-10.5) 09/23/24 16:57 Total Bilirubin 1.2 mg/dL (0.15-1.2) 09/23/24 16:57 AST 17 U/L (0-40) 09/23/24 16:57 ALT 16 U/L (0-41) 09/23/24 16:57 Alkaline Phosphatase 62 U/L (40-130) 09/23/24 16:57 Troponin T Baseline 24 ng/L (0-15) H 09/23/24 16:57 Troponin T 120 Minute 22.87 ng/L (0-15) H 09/23/24 18:30 Delta Troponin T -1.13 ABS# (0-10) L 09/23/24 18:30 NT-Pro-B Natriuret Pep 111 pg/mL (0-125) 09/23/24 16:57 Total Protein 6.7 g/dL (6.6-8.7) 09/23/24 16:57 Albumin 4.3 g/dL (3.5-5.2) 09/23/24 16:57 Globulin 2.4 g/dL (1.3-4.6) 09/23/24 16:57 Urine Color Dark yellow (Yellow) A 09/23/24 18:00 Urine Appearance Clear (CLEAR) 09/23/24 18:00 Urine pH 5.0 (5-7) 09/23/24 18:00 Ur Specific Yoder 1.025 (1.005-1.030) 09/23/24 18:00 Urine Protein 1+ (Negative) A 09/23/24 18:00 Urine Glucose (UA) 3+ (Normal) H 09/23/24 18:00 Urine Ketones Trace (Negative) 09/23/24 18:00 Urine Blood Negative (Negative) 09/23/24 18:00 Urine Nitrate Negative (Negative) 09/23/24 18:00 Urine Bilirubin Negative (Negative) 09/23/24 18:00 Urine Urobilinogen 1.0 mg/dL (Negative) 09/23/24 18:00 Ur Leukocyte Esterase Negative (Negative) 09/23/24 18:00 Urine RBC 0-2 /hpf (0-2) 09/23/24 18:00 Urine WBC 0-5 /hpf (0-5) 09/23/24 18:00 Ur Squamous Epith Cells 0-5 /hpf (0-5) 09/23/24 18:00 Calcium Oxalate Crystal 0-4 /hpf H 09/23/24 18:00 Urine Bacteria None seen /hpf (NONE) 09/23/24 18:00 Hyaline Casts 29.37 /lpf 09/23/24 18:00 Influenza A (PCR) Negative (Negative) 09/23/24 16:55 Influenza Type B (PCR) Negative (Negative) 09/23/24 16:55 RSV (PCR) Negative (Negative) 09/23/24 16:55 SARS-CoV-2 (PCR) Negative (Negative) 09/23/24 16:55 All radiology interpretation(s) finalized by discharge Discharge Plan Discharge Patient Disposition: Home Clinical Impression: Dehydration, Acute on chronic renal insufficiency Condition: Stable Prescriptions: No Action sertraline [Zoloft] 100 mg tablet 100 mg PO DAILY nitroglycerin [Nitrostat] 0.4 mg tablet, sublingual 0.4 mg sublingual Q5M PRN (Reason: Chest Pain) Rx Instructions: do not exceed 3 doses per episode chlorthalidone 25 mg tablet 50 mg PO DAILY Qty: 90 3RF amlodipine 10 mg tablet 10 mg PO DAILY aspirin [Adult Low Dose Aspirin] 81 mg tablet,delayed release (DR/EC) 81 mg PO DAILY clopidogrel 75 mg tablet 75 mg PO DAILY (DME) lancets Misc See Rx Instructions .ROUTE .MEDSUPPLY Qty: 100 0RF Rx Instructions: As directed (DME) blood-glucose meter [Blood Glucose Monitoring] Kit See Rx Instructions .ROUTE .MEDSUPPLY Qty: 1 0RF Rx Instructions: As directed (DME) pen needle, diabetic [BD Ultra-Fine Micro Pen Needle] 32 gauge x 1/4 needle See Rx Instructions .ROUTE .MEDSUPPLY Qty: 50 0RF Rx Instructions: As directed levothyroxine 175 mcg tablet 175 mcg PO QAM pyridoxine (vitamin B6) [Vitamin B-6] 100 mg Tablet 100 mg PO DAILY atorvastatin 40 mg tablet 40 mg PO QPM ondansetron 8 mg tablet,disintegrating 8 mg PO TID PRN (Reason: Nausea) pantoprazole 40 mg tablet,delayed release (DR/EC) 40 mg PO QAM metformin 1,000 mg tablet 1,000 mg PO BID glyburide micronized 3 mg tablet 3 mg PO DAILY metoprolol tartrate 25 mg tablet 25 mg PO BID Ozempic 0.25 mg or 0.5 mg (2 mg/3 mL) Pen Injector 0.25 mg SUBCUT Q7D Discharge Orders: Discharge ED (Routine); Ordered 09/23/24 Ordered By: Linda Flores Referrals: Brendan Horn DO [Primary Care Provider, Family Practice] Discharge Diet: Usual diet Discharge Activity: Increase activity as tolerated Patient Instructions: Opioid Safety, Pain Management Activity Restrictions/Additional Instructions: Thank you for choosing [facility] for your healthcare needs today. You have been screened and evaluated and felt safe for discharge. Health conditions do change or evolve sometimes and as such it is important that you follow up with your Primary Doctor to be re checked, 3-5 days is a general good time frame for follow up. 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
[2024-09-23 17:18] LABS: ABG PCO2 43.2 mmHg (35-45); ABG PH Result 7.37 (7.35-7.45); Alveolar-Arterial Oxygen Gradi 4.7 mmHg (5-10); Arterial Blood Gas Hematocrit 43.7 % (42-52); Base Excess ABG -0.8 mmol/L (-2.0-2.0); Blood Gas Allen Test Pos; Blood Gas Operator Identificat WALCI; Blood Gas Sample Site Radial, right; Blood Gas Sample Type Arterial; Carboxyhemoglobin 1.9 %THgb (0.4-20.1); HCO3 ABG 24.7 mmol/L (22-26); HGB O2 Sat 89.1 % (95-100); Ionized Calcium Level - ABG 1.2 mmol/L (1.1-1.4); Methemoglobin 0.8 % (0.4-1.5); Oxygen Device ROOM AIR; Oxygen Saturation ABG 91.6; PO2 ABG 60.6 mmHg (80.0-100.0); PO2 FiO2 Ratio Arterial Blood 288; Potassium Level - ABG 3.9 mmol/L (3.5-5.0); Total Hemoglobin 14.3 g/dL (14-18)
[2024-09-23 17:30] LABS: Basophils # 0.1 10^3/uL (0.0-0.1); Basophils % 0.6 %; Eosinophils # 0.2 10^3/uL (0.0-0.8); Eosinophils % 1.9 %; Hematocrit 40.2 % (37-53); Lymphocytes # 1.4 10^3/uL (0.8-4.8); Lymphocytes % 17.4 %; Mean Corpuscular HGB Conc 33.8 g/dL (30-55); Mean Corpuscular Hemoglobin 30.6 pg (27-33); Mean Corpuscular Volume 90.5 fl (82-101); Mean Platelet Volume 9.3 fL (7.4-10.4); Monocytes # 0.7 10^3/uL (0.2-0.9); Monocytes % 8.8 %; Neutrophils # 5.62 10^3/uL (1.8-7.7); Nucleated Red Blood Cells % 0 %; Platelet Count 281 10^3/cmm (157-399); Red Blood Count 4.44 10^6/uL (3.85-5.65); Red Cell Distribution Width 12.3 % (12.1-15.1); White Blood Count 7.92 10^3/uL (3.29-11.43)
[2024-09-23 17:36] LABS: Lactic Sepsis W/Reflex 3.7 mmol/L (0.5-2.2)
[2024-09-23 17:39] LABS: Troponin(5th) Baseline 24 ng/L (0-15)
[2024-09-23 17:41] LABS: Influenza A NEGATIVE (Negative); Influenza B NEGATIVE (Negative); Respiratory Syncytial Virus Ce NEGATIVE (Negative); SARS-CoV-2 PCR NEGATIVE (Negative)
[2024-09-23 17:47] LABS: Alanine Aminotransferase 16 U/L (0-41); Albumin Level 4.3 g/dL (3.5-5.2); Alkaline Phosphatase 62 U/L (40-130); Anion Gap 22.1 (5-19); Aspartate Amino Transferase 17 U/L (0-40); Blood Urea Nitrogen 28 mg/dL (8-23); Calcium 9.1 mg/dL (8.5-10.5); Carbon Dioxide 22 mmol/L (22-29); Chloride 95 mmol/L (98-107); Creatinine Clr Calc Pharmacy 57.3148; Globulin 2.4 g/dL (1.3-4.6); Glomerular Filtration Rate 50.5 mL/min (90-130); Glucose 372 mg/dL (65-115); NT Pro B Type Natriuretic Pept 111 pg/mL (0-125); Osmolality Calculated 301 mOsm/kg (285-295); Potassium 4.1 mmol/L (3.5-5.1); Sodium 135 mmol/L (136-145); Total Bilirubin 1.2 mg/dL (0.15-1.2); Total Protein 6.7 g/dL (6.6-8.7)
--- NOTE | 2024-09-23 18:11 | PC.NURSE ---
pt up and ambulated to restroom and back to room without any assistance, pt voiced no concerns.
[2024-09-23 18:18] LABS: Bilirubin Urine Negative (Negative); Blood Urine Negative (Negative); Glucose Urine UA 3+ (Normal); Ketones Urine Trace (Negative); Leukocyte Esterase Urine Negative (Negative); Nitrate Urine Negative (Negative); Protein Urine 1+ (Negative); Specific Gravity, Urine 1.025 (1.005-1.030); Urine Appearance Clear (CLEAR); Urine Color Dark Yellow (Yellow)
[2024-09-23 18:20] LABS: Reflex Lactate Order REFLEX LACTIC ORDERD
[2024-09-23 18:21] LABS: Bacteria Urine None Seen /hpf; Hyaline Casts Urine 29.37 /lpf; RBC Urine 0-2 /hpf (0-2); Squamous Epithelial Cell Urine 0-5 /hpf (0-5); WBC Urine 0-5 /hpf (0-5)
[2024-09-23] MEDS: sodium chloride 0.9% 1,000 ML 999 ML IV (18:27)
[2024-09-23 18:29] LABS: Calcium Oxalate Crystals Urine 0-4 /hpf; UA Slide Review UA Slide Review Perf
--- NOTE | 2024-09-23 18:44 | ECG_ITS ---
[facility] Test Date: 2024-09-23 Pat Name: Emerson Monique Department: Room: Gender: Male Claims Consultant: : 1955 Requested By: Linda Landeros Order Number: [id number] Reading MD: ANSON GODINEZ Measurements Intervals [place] Rate: 70 P: 93 HI: 138 QRS: -33 QRSD: 165 T: -8 QT: 417 QTc: 453 Interpretive Statements SINUS RHYTHM LEFT AXIS DEVIATION [QRS AXIS < -30] RIGHT BUNDLE BRANCH BLOCK [120+ ms QRS DURATION, UPRIGHT V1, 40+ ms S IN I/aVL/V4/V5/V6] MODERATE VOLTAGE CRITERIA FOR LVH, CONSIDER NORMAL VARIANT [MEETS CRITERIA IN ONE OF: R(aVL), S(V1), R(V5), R(V5/V6)+S(V1)] POSSIBLE SEPTAL MYOCARDIAL INFARCTION , PROBABLY OLD [30 ms Q WAVE IN V1/V2] Compared to ECG 09/23/2024 16:43:29 Myocardial infarct finding now present Electronically Signed On 09-26-2024 19:09:40 CDT by ANSON GODINEZ [email or web address]
[2024-09-23 18:56] LABS: Troponin 5 2HR 22.87 ng/L (0-15); Troponin 5 2HR Delta -1.13 ABS# (0-10)
[2024-09-23 18:56] LABS: Glucose Point of Care 258 mg/dL (70-110)
[2024-09-23 20:31] LABS: Lactic Acid level (Lactate) 1.8 mmol/L (0.5-2.2)
== END 2024-09-23 20:53 | disposition home or self-care (01) ==
PROVIDERS: Emergency Provider Emergency Medicine; PCP Electrodiagnostic Medicine
DX: E86.0 Dehydration (principal); N17.9 Acute kidney failure, unspecified; E11.65 Type 2 diabetes mellitus with hyperglycemia; J44.9 Chronic obstructive pulmonary disease, unspecified; I10 Essential (primary) hypertension; I25.10 Atherosclerotic heart disease of native coronary artery without angina pectoris; Z79.82 Long term (current) use of aspirin; Z79.84 Long term (current) use of oral hypoglycemic drugs; Z79.890 Hormone replacement therapy; Z79.02 Long term (current) use of antithrombotics/antiplatelets; Z79.899 Other long term (current) drug therapy; Z79.85 Long-term (current) use of injectable non-insulin antidiabetic drugs; E78.2 Mixed hyperlipidemia; Z95.5 Presence of coronary angioplasty implant and graft; Z87.891 Personal history of nicotine dependence; Z11.52 Encounter for screening for COVID-19
CPT/HCPCS: 36415; 36416; 36600; 71045; 80051; 80053; 81001; 82330; 82805; 82962; 83605; 83880; 84484; 85025; 87040; 87637; 93005; 96360; 96361; 99285; J7030

== ENCOUNTER → 2025-01-04 11:37 | Outpatient (BNVA) | payer MEDICARE, SELFPAY | PROVIDERS: PCP Electrodiagnostic Medicine; Visit Provider Podiatrist Foot & Ankle Surgery | DX: E11.42 Type 2 diabetes mellitus with diabetic polyneuropathy (principal); L60.3 Nail dystrophy; Z79.84 Long term (current) use of oral hypoglycemic drugs | CPT/HCPCS: 11721; 99203 ==

== ENCOUNTER 2025-03-01 16:02 | Emergency (ER) | payer MEDICARE, SELFPAY ==
--- OUTSIDE RECORDS SUMMARY | 2025-03-01 16:08 | XMS_ITS | Data Portability ---
Author Organization JOHN Jefferson Mejia [facility], [facility] Address [address] [place] [address] Care Team Providers Care Assembler Wire Mesh Gate Name Role Phone RIVKA KWOK Primary Care Provider Unavailabl e Assessment Encounter Date Assessment Date Assessment LastModified by Organization Details LastModified Time 08/02/2024 08/02/2024 Document scribed by Pantera Kelly Scribe. I was present during interview and exam. I have reviewed and agree with above documentation . Dr. Rivka Kwok. [email or web address] Not available 08/02/2024 15:52:56 09/27/2024 09/27/2024 Document scribed by Pantera Kellyibe. I was present during interview and exam. I have reviewed and agree with above documentation . Dr. Rivka Kwok. Reviewed and discussed pt's ER visit, lab. [email or web address] Not available 09/27/2024 15:17:15 01/04/2025 01/04/2025 Document scribed by Pantera Kelly Scribe. I was present during interview and exam. I have reviewed and agree with above documentation . Dr. Rivka Kwok. [email or web address] Not available 01/04/2025 15:52:07 Plan of Treatment Reminders Order Date Submit Date Provider Last Modified By Organization Details Last Modified Time Details Appointments None recorded. Lab hemoglobin A1C/hemoglo bin total, QN, blood 2024 025 L[facility]Y [facility], [address], [facility] [address], [place], [address], 13:40:06 CMP, serum or plasma 2024 025 LEVY Paulino [facility], [address], [address], [place], [address], 5 14:07:57 CBC - ok per Candy [facility], [address], [address], [place], [address], 13:34:28 hemoglobin A1C/hemoglo bin total, QN, blood 20[email or web address] [place] [address] [facility], [address], [address], [place], [address], 5 07:40:02 CMP, serum or plasma 2024 [email or web address] [facility], [address], [address], [place], [address], 5 07:40:02 CBC 2024 [email or web address] [place], [place] [address]ek [facility], [address], [address], [place], [address], 5 07:40:02 thyrotropin , QN, serum or plasma 2024 [email or web address] [place], [place] [address]ek [facility], [address], [address], [place], [address], 5 07:40:02 Referral cardiopulmo nary rehab referral 2024 025 [email or web address] Not available 16:01:45 game technician referral 2024 025 [email or web address] Reyna, [address], [place], [address], 15:26:11 cardiologis t referral 2024 025 [email or web address], [address] [place] [address] [address], [place], [address], 11:54:31 Procedures colonoscopy procedure (PROC) 2024 025 [email or web address] [facility], [address], [place], [address], 16:20:23 Surgeries None recorded. Imaging None recorded. Medication Orders Ozempic 2 mg/dose (8 mg/3 mL) subcutaneou s pen injector 2024 [facility], [address] , [place], [address], 16:08:36 Ozempic 1 mg/dose (4 mg/3 mL) subcutaneou s pen injector [address] [facility], [address] , [place], [address], 07:40:02 ondansetron 8 mg disintegrat ing tablet [address] [facility], [address], [place], [address], 16:23:55 Ozempic 0.25 mg or 0.5 mg (2 mg/1.5 mL) subcutaneou s pen injector 2024 025 [facility], [address], [place], [address], 15:53:35 pantoprazol e 40 mg tablet,dominique yed release [address] [facility], [address], [place], [address], 16:23:55 Patient TargetsNo targets recorded. Patient InstructionsNo instructions recorded. 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 Consultant Referral for Ingr owing toenail Referring Physician: Rivka Kwok [facility] Medicine, Encounter Date: 08/30/2024 High Pressure Firer Referral for Hy pertensive heart disease with congestive heart failure Referring Physician: Rivka Kwok [facility] Medicine, Encounter Date: 08/30/2024 Cardiopulmonary Rehab Referr al for Chronic obstructive pulmonary disease Referring Physician: Rivka Kwok [facility] Medicine, Encounter Date: 01/04/2025 Results Created Date Observation Date Name Description Value Unit Range Abnormal Flag Note LastModifiedBy Organization Detail LastModifiedTime 09/28/1909/27/2024 HBA1C hemaglobin A1C 10.7 4.2-6. 5 high Not Available Paul[facility] [address] [facility] [address], [place], [address], 09/27/2024 15:54:39 09/28/19 25 09/27/2024 CBC WBC 7.9 x10 4.5-10 .5 Not Available Paul[facility] [address] [facility] [address], [place], [address], 09/27/2024 15:54:43 09/28/19 25 09/27/2024 CBC RBC 4.63 x10 4.30-5 .90 Not Available Paulino [facility] [address], [place], [address], 09/27/2024 15:54:43 09/28/19 25 09/27/2024 CBC HGB 14.2 g/dL 13.5-1 8.0 Not Available Paulino [facility] [address] [facility] [address], [place], [address], 09/27/2024 15:54:43 09/28/19 25 09/27/2024 CBC HCT 42.7 % 35.0-6 0.0 Not Available Paulino [facility] [address] [facility] 1, [place], [address], 09/27/2024 15:54:43 09/28/1909/27/2024 CBC MCV 92.3 fL 80.0-9 9.9 Not Available Paulino [facility] [address] [facility] 1, [place], [address], 09/27/2024 15:54:43 09/28/19 25 09/27/2024 CBC MCH 30.7 pg 27.0-3 2.0 Not Available Paul[facility] [address] [facility] [address] [facility] 1, [place], [address], 09/27/2024 15:54:43 09/28/19 25 09/27/2024 CBC MCHC 33.3 g/dL 32.0-3 6.0 Not Available Paul[facility] [address] [facility] [address] [facility] 1, [place], [address], 09/27/2024 15:54:43 09/28/1909/27/2024 CBC RDW 13.2 % 11.5-1 4.5 Not Available Paul[facility] [address] [facility] [address] [facility] 1, [place], [address], 09/27/2024 15:54:43 09/28/1909/27/2024 CBC plt 280.4 x10 150.0- 451.0 Not Available [facility] [address] [facility] [address] [facility] 1, [place], [address], 09/27/2024 15:54:43 09/28/1909/27/2024 CBC lymphocytes % 16.3 % 20.0-5 0.0 low Not Available Paulino [facility] [address] [facility] [address] [facility] 1, [place], [address], 09/27/2024 15:54:43 09/28/19 25 09/27/2024 CBC granulcytes % 71.9 % 30.0-7 0.0 high Not Available [facility] [address] [address], [place], [address], 09/27/2024 15:54:43 09/28/19 25 09/27/2024 CBC monocytes % 8.8 % 2.0-16 .0 Not Available [facility] [address] [address], [place], [address], 09/27/2024 15:54:43 09/28/1909/27/2024 CBC granulcytes# 5.7 x10 Not Tanvi ilable [facility] [address] [address], [place], [address], 09/27/2024 15:54:43 09/28/19 25 09/27/2024 CBC lymphocytes # 1.3 x10 Not Available [facility] [address] [address], [place], [address], 09/27/2024 15:54:43 09/28/19 25 09/27/2024 CBC monocytes # 0.7 x10 Not Avai lable [facility] [address] [address], [place], [address], 09/27/2024 15:54:43 09/28/1909/27/2024 CMP (MALE ) glucose 409.0 mg/dL 60.0-9 9.0 high Not Available [facility] [address] [address], [place], [address], 09/27/2024 16:34:28 09/28/19 25 09/27/2024 CMP (MALE ) BUN (blood urea nitrogen) 24.0 mg/dL 10.0-2 6.0 Not Available [facility] [address] [place], [address], 09/27/2024 16:34:28 09/28/19 25 09/27/2024 CMP (MALE ) creatinine (serum) 1.1 mg/dL 0.4-1. 5 Not Available [facility] [address] [facility] 1, [place], [address], 09/27/2024 16:34:28 09/28/19 25 09/27/2024 CMP (MALE ) BUN/creatini ne ratio 21.82 ratio Not Available [facility] [address] [facility], [place], [address], 09/27/2024 16:34:28 09/28/19 25 09/27/2024 CMP (MALE ) eGFR calculated 71.0 Not Available [facility] [address] [facility], [place], [address], 09/27/2024 16:34:28 09/28/19 25 09/27/2024 CMP (MALE ) total protein 7.8 g/dL 6.0-8. 5 Not Available [facility] [address] [facility], [place], [address], 09/27/2024 16:34:28 09/28/19 25 09/27/2024 CMP (MALE ) total bilirubin 1.0 mg/dL 0.2-1. 3 Not Available [place] [facility] [address] [facility], [place], [address], 09/27/2024 16:34:28 09/28/19 25 09/27/2024 CMP (MALE ) albumin 4.6 g/dL 3.5-5. 5 Not Available [facility] [address] [facility], [place], [address], 09/27/2024 16:34:28 09/28/19 25 09/27/2024 CMP (MALE ) globulin 3.2 calc Not Available [facility] [address] [facility] [address], [place], [address], 09/27/2024 16:34:28 09/28/19 25 09/27/2024 CMP (MALE ) AST (SGOT) 27.0 U/L 0.0-46 .0 Not Available Paulino [facility] [address] [facility] 1, [place], [address], 09/27/2024 16:34:28 09/28/19 25 09/27/2024 CMP (MALE ) altv (SGPT) 23.0 U/L 13.0-6 9.0 normal Not Available Paulino [facility] [address] [facility] [address], [place], [address], 09/27/2024 16:34:28 09/28/19 25 09/27/2024 CMP (MALE ) A/G ratio 1.4 ratio Not Available [facility] [address] [address], [place], [address], 09/27/2024 16:34:28 09/28/19 25 09/27/2024 CMP (MALE ) ALP phos 64.0 U/L 30.0-1 40.0 normal Not Available Paulino [facility] [address] [address], [place], [address], 09/27/2024 16:34:28 09/28/19 25 09/27/2024 CMP (MALE ) calcium 9.5 mg/dL 8.4-10 .5 Not Available Paul[facility] [address] [address], [place], [address], 09/27/2024 16:34:28 09/28/19 25 09/27/2024 CMP (MALE ) sodium 135.0 mmol/ L 136.0- 145.0 low Not Available Paulino [facility] [address] [address], [place], [address], 09/27/2024 16:34:28 09/28/19 25 09/27/2024 CMP (MALE ) potassium 4.2 mmol/ L 3.5-5. 1 Not Available [facility] [address] [facility] [address], [place], [address], 09/27/2024 16:34:28 09/28/19 25 09/27/2024 CMP (MALE ) chloride 95.0 mmol/ L 98.0-1 10.0 abnormal Not Available [facility] [address] [facility] 1, [place], [address], 09/27/2024 16:34:28 09/28/19 25 09/27/2024 CMP (MALE ) C02 30.0 mmol/ L 22.0-3 1.0 Not Available [facility] [address] [address], [place], [address], 09/27/2024 16:34:28 09/28/19 25 09/27/2024 CMP (MALE ) anion gap 10.0 calc Not Available [facility] [address] [address], [place], [address], 09/27/2024 16:34:28 09/28/19 25 09/27/2024 CMP (MALE ) osmolality 298.5 calc Not Available Paul[facility] [address] [facility] [address] [address], [place], [address], 09/27/2024 16:34:28 09/28/19 25 09/27/2024 TSH TSH 0.78 uIU/m L 0.49-3 .82 Not Available [facility] [address] [facility] 1, [place], [address], 09/27/2024 17:34:58 01/05/20 25 01/04/2025 CBC WBC 7.1 x10 4.5-10 .5 Not Available Paulino [facility] [address], [place], [address], 01/04/2025 13:34:28 01/05/2001/04/2025 CBC RBC 4.05 x10 4.30-5 .90 low Not Available Paul[facility] [address] [facility] 1, [place], [address], 01/04/2025 13:34:28 01/05/2001/04/2025 CBC HGB 12.9 g/dL 13.5-1 8.0 low Not Available Paul[facility] [address] [facility] 1, [place], [address], 01/04/2025 13:34:28 01/05/2001/04/2025 CBC HCT 37.6 % 35.0-6 0.0 Not Available [facility] [address] [facility] 1, [place], [address], 01/04/2025 13:34:28 01/05/2001/04/2025 CBC MCV 92.8 fL 80.0-9 9.9 Not Available Paul[facility] [address] [facility] 1, [place], [address], 01/04/2025 13:34:28 01/05/2001/04/2025 CBC MCH 31.7 pg 27.0-3 2.0 Not Available [facility] [address] [facility] [address], [place], [address], 01/04/2025 13:34:28 01/05/2001/04/2025 CBC MCHC 34.2 g/dL 32.0-3 6.0 Not Available [facility] [address] [facility] [facility] 1, [place], [address], 01/04/2025 13:34:28 01/05/2001/04/2025 CBC RDW 13.8 % 11.5-1 4.5 Not Available [facility] [address] [facility] [facility] 1, [place], [address], 01/04/2025 13:34:28 01/05/20 25 01/04/2025 CBC plt 269.4 x10 150.0- 451.0 Not Available Paul[facility] [address] [facility] 1, [place], [address], 01/04/2025 13:34:28 01/05/20 25 01/04/2025 CBC lymphocytes % 21.4 % 20.0-5 0.0 Not Available [facility] [address] [facility] 1, [place], [address], 01/04/2025 13:34:28 01/05/20 25 01/04/2025 CBC granulcytes % 64.0 % 30.0-7 0.0 Not Available [facility] [address] [facility] 1, [place], [address], 01/04/2025 13:34:28 01/05/20 25 01/04/2025 CBC monocytes % 10.3 % 2.0-16 .0 Not Available [facility] [address] [facility] 1, [place], [address], 01/04/2025 13:34:28 01/05/2001/04/2025 CBC granulcytes# 4.5 x10 Not Tanvi ilable [facility] [address] [facility] 1, [place], [address], 01/04/2025 13:34:28 01/05/20 25 01/04/2025 CBC lymphocytes # 1.5 x10 Not Available [facility] [address] [facility] 1, [place], [address], 01/04/2025 13:34:28 01/05/20 25 01/04/2025 CBC monocytes # 0.7 x10 Not Avai lable [facility] [address] [facility] [address] [address] [facility], [place], [address], 01/04/2025 13:34:28 01/05/20 25 01/04/2025 HBA1C hemaglobin A1C 8.8 4.2-6. 5 high Not Available [facility] [address] [facility], [place], [address], 01/04/2025 13:40:06 01/05/20 25 01/04/2025 CMP (MALE ) glucose 267.0 mg/dL 60.0-9 9.0 high Not Available [facility] [address] [facility] [address] [address], [place], [address], 01/04/2025 14:07:57 01/05/20 25 01/04/2025 CMP (MALE ) BUN (blood urea nitrogen) 25.0 mg/dL 10.0-2 6.0 Not Available [facility] [address] [facility] [address] [address], [place], [address], 01/04/2025 14:07:57 01/05/20 25 01/04/2025 CMP (MALE ) creatinine (serum) 1.1 mg/dL 0.4-1. 5 Not Available [facility] [address] [facility] [address] [address], [place], [address], 01/04/2025 14:07:57 01/05/20 25 01/04/2025 CMP (MALE ) BUN/creatini ne ratio 22.73 ratio Not Available [facility] [address] [facility] [address] [address], [place], [address], 01/04/2025 14:07:57 01/05/20 25 01/04/2025 CMP (MALE ) eGFR calculated 71.0 Not Available [facility] [address] [facility] [address] [facility] 1, [place], [address], 01/04/2025 14:07:57 01/05/2001/04/2025 CMP (MALE ) total protein 7.3 g/dL 6.0-8. 5 Not Available [facility] [address] [facility] [address] [facility] 1, [place], [address], 01/04/2025 14:07:57 01/05/20 25 01/04/2025 CMP (MALE ) total bilirubin 0.8 mg/dL 0.2-1. 3 Not Available [facility] [address] [facility] [address] [facility] 1, [place], [address], 01/04/2025 14:07:57 01/05/2001/04/2025 CMP (MALE ) albumin 4.3 g/dL 3.5-5. 5 Not Available [facility] [address] [facility], [place], [address], 01/04/2025 14:07:57 01/05/2001/04/2025 CMP (MALE ) globulin 3.0 calc Not Available [facility] [address] [facility], [place], [address], 01/04/2025 14:07:57 01/05/2001/04/2025 CMP (MALE ) AST (SGOT) 24.0 U/L 0.0-46 .0 Not Available [facility] [address] [facility] [address] [facility] 1, [place], [address], 01/04/2025 14:07:57 01/05/2001/04/2025 CMP (MALE ) altv (SGPT) 17.0 U/L 13.0-6 9.0 normal Not Available [facility] [address] [facility] [address] [facility] 1, [place], [address], 01/04/2025 14:07:57 01/05/20 25 01/04/2025 CMP (MALE ) A/G ratio 1.4 ratio Not Available [facility] [address] [facility], [place], [address], 01/04/2025 14:07:57 01/05/20 25 01/04/2025 CMP (MALE ) ALP phos 65.0 U/L 30.0-1 40.0 normal Not Available [facility] [address] [facility] 1, [place], [address], 01/04/2025 14:07:57 01/05/2001/04/2025 CMP (MALE ) calcium 9.8 mg/dL 8.4-10 .5 Not Available [facility] [address] [facility] [address], [place], [address], 01/04/2025 14:07:57 01/05/20 25 01/04/2025 CMP (MALE ) sodium 138.0 mmol/ L 136.0- 145.0 Not Available [place] [facility] [address] [facility] 1, [place], [address], 01/04/2025 14:07:57 01/05/20 25 01/04/2025 CMP (MALE ) potassium 4.5 mmol/ L 3.5-5. 1 Not Available [facility] [address] [facility] 1, [place], [address], 01/04/2025 14:07:57 01/05/20 25 01/04/2025 CMP (MALE ) chloride 101.0 mmol/ L 98.0-1 10.0 normal Not Available [facility] [address] [facility], [place], [address], 01/04/2025 14:07:57 01/05/20 25 01/04/2025 CMP (MALE ) C02 29.0 mmol/ L 22.0-3 1.0 Not Available [facility] [address], [place], [address], 01/04/2025 14:07:57 01/05/2001/04/2025 CMP (MALE ) anion gap 8.0 calc Not Available [facility] [address], [place], [address], 01/04/2025 14:07:57 01/05/20 25 01/04/2025 CMP (MALE ) osmolality 297.7 calc Not Available [facility] [address], [place], [address], 01/04/2025 14:07:57 08/11/19 25 colon oscop y proce dure (PROC ) No observ ation record ed. asurface Not Available 2024 12:22:26 Result Notes None recorded. Problems Name Problem SNOMED Code Status Onset Date Resolution Date Notes Provider Name and Address Organization Details Recorded Time Hyperlipide jamal 20966207 Active 2022 Lamar phipps [employer] 5 11:13:04 Hypothyroid ism 34678373 Active 2022 Lamar phipps [employer] 5 11:13:07 Type 2 diabetes mellitus 62122509 Active 2022 Lamar phipps [employer] 5 11:13:23 Hypertensiv e heart disease with congestive heart failure 0960884 Active 2022 Lamar phipps [employer] 5 11:12:26 Peripheral arterial occlusive disease 699544101 Active 2022 Lamar phipps [employer] 5 11:13:12 Bilateral tinnitus 4929223939294 Active 2022 Lamar phipps [employer] 5 11:13:00 Chronic insomnia 319063939 Active 2022 Lamar phipps [employer] 5 11:07:18 Essential hypertensio n 21815923 Active 2022 Lamar phipps [employer] 5 11:07:29 Chronic disease 59654594 [facility] 2023 [facility] 11:07:15 Morbid obesity 410898750 Active 2023 Lamar phipps [employer] 5 11:12:41 Moderate recurrent major depression 42158688 Active 2023 Lamar Benitez [facility] [employer] [facility] 5 11:12:32 Chronic obstructive pulmonary disease 56274280 Active 2023 Lamar phipps [employer] 5 11:07:25 Chronic kidney disease stage 2 389279650 Active 2024 Lamar phipps [employer] 5 11:07:21 Gastroesoph ageal reflux disease 722565153 Active 2024 Lamar phipps [employer] 5 14:45:58 Ingrowing toenail 565397063 Active 2024 Lamar phipps [employer] [facility] 5 14:46:08 Problem Notes None recorded. Procedures Surgical History Date Name Laterality Status Provider Name and Address Organization Details Recorded Time total replacement of hip completed Fermin Zavala [facility] 06/21/2024 10:57:15 placement of stent in coronary artery completed [facility] 06/21/2024 10:57:57 arthroscopy of shoulder completed Fermin [facility] 06/21/2024 10:58:21 Imaging Results None recorded. Procedure Notes None recorded. Medical Equipment None Reported. Allergies Allergen ID Allergen Name Allergen Category Reaction Reaction Severity Criticality Documentation Date Start Date Code Code System Note Provider Name and Address Organization Details Recorded Time 1459 lisinopri l medicatio n Not available Not available Not available 08/14/2022 64813 RxNorm [facility] 12:10:04 Medications Name Sig Start Date Stop Date Status Note LastModified by Organization Details LastModified Time losartan 50 mg tablet TAKE 1 TABLET BY MOUTH ONCE DAILY 06/21 completed Not Available Not Available Not Available atorvasta tin 40 mg tablet TAKE 1 TABLET BY MOUTH ONCE DAILY FOR CHOLESTE ROL active Not Available Not Available No t Available cilostazo l 100 mg tablet active 1 tablet BID Not Available Not Available Not Available levothyro xine 175 mcg tablet TAKE 1 TABLET EVERY DAY 2024 active Not Available Not Available Not Avai lable carvedilo l 6.25 mg tablet TAKE 1 TABLET BY MOUTH TWICE DAILY 06/21 completed Not Available Not Available Not Available tizanidin e 2 mg tablet three times daily, as needed 03/03 completed Recorded 04/07/20 22 1:25PM by Paula Lawson, Office Visit; Refill Quantity : 35; Tablet; Not Available Not Available Not Available trazodone 50 mg tablet Take 1 tablet every day by oral route in the evening for 30 days. 06/21 completed Not Available Not Available Not Available ondansetr on HCl 4 mg tablet Take 1 tablet every 6 hours by oral route as needed. 11/17 completed Not Available Not Available Not Available prednison e 20 mg tablet TAKE 2 TABLETS BY MOUTH ONCE DAILY FOR 7 DAYS 06/21 completed Not Available Not Available Not Available sertralin e 100 mg tablet TAKE 1 TABLET EVERY DAY 2024 active Not Available Not Available Not Avai lable Accu-Chek Softclix Lancets USE DIRECTED active Not Available Not Available No t Available triamcino lone acetonide 0.5 % topical ointment APPLY A THIN LAYER TO THE AFFECTED AREA(S) BY TOPICAL ROUTE 2 TIMES PER DAY active Not Available Not Available No t Available clopidogr el 75 mg tablet TAKE 1 TABLET EVERY DAY FOR HEART 06/21 completed Not Available Not Available Not Available chlorthal idone 25 mg tablet TAKE 1 TABLET EVERY DAY 2024 active Not Available Not Available Not Avai lable ondansetr on 8 mg disintegr ating tablet DISSOLVE 1 TABLET IN MOUTH THREE TIMES DAILY NEEDED FOR NAUSEA active Not Available Not Available No t Available tamsulosi n 0.4 mg capsule TAKE 1 CAPSULE EVERY NIGHT FOR PROSTATE 11/17 completed Not Available Not Available Not Available amlodipin e 10 mg tablet TAKE 1 TABLET EVERY DAY 2024 active Not Available Not Available Not Avai lable isopropyl alcohol 70 % solution three times daily 03/03 completed 08975; Recorded 07/19/19 23 7:35AM by Trista Briseno (Authori zed through Stephan Nicholas MD), Refill Request; Mail Order Quantity : 100 Pad; Refill Quantity : 0; Not Available Not Available Not Available pantopraz ole 40 mg tablet,de layed release TAKE 1 TABLET BY MOUTH ONCE DAILY IN THE MORNING FOR STOMACH active Not Available Not Available No t Available oseltamiv ir 75 mg capsule TAKE 1 CAPSULE BY MOUTH TWICE DAILY FOR 5 DAYS 06/21 completed Not Available Not Available Not Available metformin 1,000 mg tablet TAKE 1 TABLET TWICE DAILY 2024 active Not Available Not Available Not Avai lable levothyro xine 125 mcg tablet TAKE 1 TABLET BY MOUTH ONCE DAILY FOR THYROID 11/17 completed Not Available Not Available Not Available triamcino lone acetonide 0.1 % topical ointment 11/17 completed Not Available Not Available Not Available levothyro xine 150 mcg tablet TAKE 1 TABLET EVERY DAY 02/02 completed Not Available Not Available Not Available nitroglyc jeff 0.4 mg sublingua l tablet one tablet under the tongue every five minutes for chest pain, max of 3 tablets in 15 minutes active Not Available Not Available No t Available mupirocin 2 % topical ointment twice a day to affected areas 11/17 completed Recorded 04/07/20 22 2:03PM by Rivka Kwok DO, Office Visit; Refill Quantity : 20; Gram; Not Available Not Available Not Available glyburide micronize d 3 mg tablet TAKE 1 TABLET EVERY DAY 06/21 completed Not Available Not Available Not Available triamcino lone acetonide 0.1 % lotion to affected areas twice a day 03/03 completed Recorded 04/07/20 22 2:02PM by Rivka Kwok DO, Office Visit; Refill Quantity : 30; Gram; Not Available Not Available Not Available albuterol sulfate HFA 90 mcg/actua tion aerosol inhaler Inhale 2 puffs every 4 hours by inhalati on route as needed, for breathin g. active Not Available Not Available No t Available bupropion HCl XL 150 mg 24 hr tablet, extended release TAKE 1 TABLET TWICE DAILY 06/21 completed Not Available Not Available Not Available metoprolo l tartrate 25 mg tablet TAKE 1 TABLET TWICE DAILY FOR BLOOD PRESSURE 2024 active Not Available Not Available Not Avai lable glyburide micronize d daily 03/03 completed 63301; Recorded 02/20/20 22 12:11PM by Priyanka Mason (Authori hira through Rivka Kwok DO), Office Visit; Mail Order Quantity : 90 Tablet; Refill Quantity : 0; Not Available Not Available Not Available metformin two times daily 01/19 completed Recorded 02/20/20 22 12:11PM by Priyanka Mason, Office Visit; Mail Order Quantity : 180 Tablet; Refill Quantity : 0; Not Available Not Available Not Available [facility] Levothyro xine Sodium daily 01/19 completed DM/sd; 73721; Recorded 04/10/20 22 11:08AM by Priyanka Mason (Authori hira through Rivka Kwok DO), Refill Request; Mail Order Quantity : 90 Tablet; Refill Quantity : 0; Not Available Not Available Not Available cilostazo l two times daily 01/19 completed Recorded 02/20/20 22 12:11PM by Priyanka Mason, Office Visit; Mail Order Quantity : 180 Tablet; Refill Quantity : 0; Not Available Not Available Not Available Symbicort 80 mcg-4.5 mcg/actua tion HFA aerosol inhaler Inhale 2 puffs twice a day by inhalati on route as directed for 90 days, for lungs. active Not Available Not Available No t Available Humalog KwikPen (U-100) Insulin 100 unit/mL subcutane ous INJECT 5 UNITS SUBCUTAN EOUSLY THREE TIMES DAILY 06/21 completed Not Available Not Available Not Available amlodipin e besylate (bulk) daily 12/16 completed Recorded 02/20/20 22 12:11PM by Priyanka Mason, Office Visit; Mail Order Quantity : 90 Tablet; Refill Quantity : 0; Not Available Not Available Not Available TRUEplus Lancets 33 gauge TEST BLOOD SUGAR THREE TIMES DAILY 2024 active Not Available Not Available Not Avai lable True Metrix Glucose Test Strip TEST BLOOD SUGAR THREE TIMES DAILY 2024 active Not Available Not Available Not Avai lable True Metrix Level 1 solution active Not Available Not Available Not Available True Metrix Glucose Test Strip three times daily 03/03 completed 70844; Recorded 06/04/19 23 8:19AM by Priyanka Mason (Aurelia iniguez through Rivka Kwok DO), Refill Request; Mail Order Quantity : 100 Strip; Refill Quantity : 0; Not Available Not Available Not Available Ozempic 0.25 mg or 0.5 mg (2 mg/1.5 mL) subcutane ous pen injector Inject 0.5 mg every week by subcutan eous route as directed for 90 days. 01/04 completed Not Available Not Available Not Available Accu-Chek Guide Me Glucose Meter USE DIRECTED active Not Available Not Available No t Available BD Kelly 2nd Gen Pen Needle 32 gauge x USE DIRECTED active Not Available Not Available No t Available Ozempic 1 mg/dose (4 mg/3 mL) subcutane ous pen injector Inject 1 mg every week by subcutan eous route, for Diabetes . 2024 active Not Available Not Available Not Avai lable True Metrix Glucose Meter kit to check blood sugar three times daily 03/03 completed Recorded 04/30/20 22 1:17PM by Kiki Villalta al Summary; Mail Order Quantity : 1 Kit; Refill Quantity : 0; Not Available Not Available Not Available Paxlovid 300 mg (150 mg x 2)-100 mg tablets in a dose pack TAKE 3 TABLETS TOGETHER (TWO 150 MG NIRMATRE LVIR TABLETS AND ONE 100 MG RITONAVI R TABLET) BY MOUTH TWICE DAILY FOR 5 DAYS. 06/21 completed Not Available Not Available Not Available DropSafe Alcohol Prep Pads USE THREE TIMES DAILY TO CHECK BLOOD GLUCOSE. 2024 active Not Available Not Available Not Avai lable Ozempic 2 mg/dose (8 mg/3 mL) subcutane ous pen injector Inject 2 mg every week by subcutan eous route. 2024 active Not Available Not Available Not Avai lable Paxlovid 150 mg-100 mg tablets in a dose pack (Moderate Renal Dose) TAKE 2 TABLETS TOGETHER (ONE 150 MG NIRMATRE LVIR TABLET AND ONE 100 MG RITONAVI R TABLET) BY MOUTH TWICE DAILY FOR 5 DAYS. 06/21 completed Not Available Not Available Not Available Ozempic 0.25 mg or 0.5 mg (2 mg/3 mL) subcutane ous pen injector 06/21 completed Not Available Not Available Not Available Vitals Date Recorded Body height Body mass index (BMI) Body weight Oxygen saturation Oxygen saturation in Arterial blood by Pulse oximetry Heart rate Respiratory rate Systolic And Diastolic Provider Name and Address Organization Details Last Updated DateTime 5 172.72 cm 32.4 kg/m2 33088.1 7 g 96 % 96 % 76 /min 18 /min 138/70 mm[Hg] Lamar Benitez [facility] 5 15:39:34 Date Recorded Body height Body mass index (BMI) Body weight Oxygen saturation Oxygen saturation in Arterial blood by Pulse oximetry Heart rate Respiratory rate Systolic And Diastolic Provider Name and Address Organization Details Last Updated DateTime 5 172.72 cm 32.3 kg/m2 46022.9 8 g 93 % 93 % 91 /min 18 /min 122/80 mm[Hg] [facility] 5 15:42:38 Date Recorded Body height Body mass index (BMI) Body weight Oxygen saturation Oxygen saturation in Arterial blood by Pulse oximetry Heart rate Respiratory rate Systolic And Diastolic Provider Name and Address Organization Details Last Updated DateTime 5 172.72 cm 32 kg/m2 26743.8 g 96 % 96 % 82 /min 18 /min 130/70 mm[Hg] [facility] 5 14:47:29 Date Recorded Body height Body mass index (BMI) Body weight Oxygen saturation Oxygen saturation in Arterial blood by Pulse oximetry Heart rate Respiratory rate Systolic And Diastolic Provider Name and Address Organization Details Last Updated DateTime 5 172.72 cm 32.4 kg/m2 95114.1 7 g 96 % 96 % 80 /min 18 /min 134/82 mm[Hg] PAULA WHIPPLEAGER [facility] 5 15:28:28 Social History Question Answer Notes LastModified by Fastly Details LastModified Time Tobacco Smoking Status [facility] 06/21/2024 10:55:52 What Is Your Level Of Caffeine Consumption? Occasional [email or web address] Information not available 06/21/2024 When Did You Quit Smoking? 16+yearsflex diego [email or web address] Information not available 06/30/2024 What Was The Date Of Your Most Recent Tobacco Screening? 06/30/2024 Information not available 06/30/2024 Sex: Unknown Functional Status Question Answer Note LastModified by [employer] Details LastModified Time Do you use any illicit or recreational drugs? No [email or web address] Information not available 06/21/2024 Do you or have you ever used any other forms of tobacco or nicotine? No [email or web address] Information not available 06/30/2024 What is your level of alcohol consumption? Occasional [email or web address] Information not available 06/21/2024 Do you or have you ever used any nicotine-free cigarettes, vape, or chewing tobacco? No [email or web address] Information not available 06/30/2024 Mental Status None recorded. Family History Relationship Description Onset Age of this Age Resolved Age Notes LastModified by Organization Details LastModified Time Sister Migraine [email or web address] Not availabl e 06/21/2024 10:56:16 Sister Essential hypertension [email or web address] Not available 10:58:48 Sister Diabetes mellitus [email or web address] Not available 2024 10:59:00 Sister Cerebrovascu lar accident [email or web address] Not available 10:59:13 Sister Hyperlipidem ia [email or web address] Not available 2024 10:59:22 Mother Heart disease [email or web address] Not available 2024 11:00:20 Mother Diabetes mellitus [email or web address] Not available 2024 11:00:32 Father Heart disease [email or web address] Not available 2024 11:00:20 Medical History No medical history recorded. Past Encounters Encounter ID Performer Location Encounter Start Date Encounter Closed Date Diagnosis/Indication Diagnosis SNOMED-CT Code Diagnosis ICD10 Code Diagnosis IMO Codes Diagnosis Note [id number] Rivka Kwok DO [facility] ([facility]) [address] [place] [address] [id number] 08/14/2022 11:59:29 08/20/2022 17:04:50 Epigastric pain 22285823 R10.13 2 wks with only partial improvemen t, will get labs, covid pcr, and xray. Return to office with no improvemen t or any problems. Go to ER with severe worsening or severe problems. [id number] Rivka Kwok DO [facility] ([facility]) [address] [place] [address] [phone] 12/16/2022 12:40:04 12/16/2022 17:30:55 Peripheral arterial occlusive disease 032461462 I73.9 With history of stenting in bilateral lower extremitie s continue aspirin,, statin patient is to continue his blood pressure medication . Hypertensi ve heart disease with congestive heart failure 6307750 I11.0 Blood pressure significan tly high today. We are unclear as to if he really is taking his blood pressure medication s. Counseled to take his metoprolol , amlodipine , chlorthali done every single day as prescribed . Monitor blood pressure closely. Follow-up 1 month, sooner with problems Type 2 cody betes mellitus 80628646 E11.69 E11.59 E11.22 E11.42 Uncontroll ed. Fasting very high today. Counseled patient on need to take diabetes medication s. We will get labs today. Foot exam done today. Hypothyroidism 58074773 E03.9 Repeat labs today. Continue levothyrox ine. Hyperlipidemia 76967818 E78.5 Stable. Will repeat labs. Continue Atorvastat in. Counseled on diet and exericse. Moderate r ecurrent major depression 59995075 F33.1 Continue sertraline . Counseled patient on signs and symptoms of worsening as well as need to stay on the sertraline without missing doses. Follow-up 1 month. Sooner with problems [id number] Rivka Kwok DO [facility] ([facility]) [address] [place] [address] [id number] 01/19/2023 12:57:41 01/19/2023 14:34:34 Type 2 diabetes mellitus 53078849 E11.69 E11.59 E11.22 E11.42 Reviewed labs with patient. Most recent A1c was 13.7. Counseled on extremely high blood sugars and increased risks of uncontroll ed diabetes. Patient will continue to work on diet and exercise. We will add Ozempic to his current medication s. Follow-up 1 month. Hypertensi ve heart disease with congestive heart failure 1865221 I11.0 Blood pressure significan tly high today. We are unclear as to if he really is taking his blood pressure medication s. Counseled to take his metoprolol , amlodipine , chlorthali done every single day as prescribed . Monitor blood pressure closely. Follow-up 1 month, sooner with problems [id number] Rivka Kwok DO [facility] ([facility]) [address] [place] [address] [id number] 5 03/03/2023 11:36:35 03/03/2023 15:24:55 Type 2 diabetes mellitus 58397743 E11.69 E11.59 E11.22 E11.42 A1c extremely high at above 13. Patient needs to continue to work on low sugar diet and exercise. Continue glyburide and metformin. We are attempting to get Ozempic covered by insurance as this will be a very good medicine for him. Essential hypertension 06004430 I10 improved, continue metoprolol , chlorthali done, amlodipine . Hyperlipidemia 10935837 E78.5 Stable. Will repeat lab next appointmen t s. Continue Atorvastat in. Counseled on diet and exercise. Hypertensi ve heart disease with congestive heart failure 8327164 I11.0 Continue metoprolol , chlorthali done, and amlodipine . Low-salt low sugar diet. Monitor weight. Return with worsening. Hypothyroidism 73561500 E03.9 . Continue levothyrox ine. Peripheral arterial occlusive disease 843315184 I73.9 With history of stenting in bilateral lower extremitie s continue aspirin,, statin patient is to continue his blood pressure medication . Bilateral tinnitus 51485 33340 102 H93.13 Moderate. Counseled patient. If desires treatment options will refer to ENT. Chronic insomnia 5914632 04 F51.04 Worsening. his day night cycle is off. Going to bed at 4 AM and waking up at noon every day., We will start trazodone nightly for 2 to 3 weeks then wean off as tolerated. [id number] Rivka Kwok DO [facility] ([facility]) [address] [place] [address] [id number] 5 11/18/2023 12:25:58 11/18/2023 13:12:01 Type 2 diabetes mellitus 48803960 E11.69 E11.59 E11.22 E11.42 A1c extremely high at above 13 almost 1 year ago and has not returned for follow-up since. Patient needs to continue to work on low sugar diet and exercise. Patient did not tolerate glimepirid e or glyburide. He is on metformin still. We have tried to get Ozempic covered a year ago but this did not work out. Consider GLP-1 therapy in addition to metformin pending labs. Patient had a recent eye exam and he does have cataracts. He is to monitor his feet very closely due to his diabetes and his peripheral vascular disease. Chronic ob structive pulmonary disease 29232245 J44.9 Not completely controlled . He has not been using his Symbicort. Counseled patient extensivel y on use of medication s. Peripheral arterial occlusive disease 240280208 I73.9 With history of stenting in bilateral lower extremitie s continue aspirin,, statin patient is to continue his blood pressure medication . Essential hypertension 41806322 I10 improved, continue metoprolol , chlorthali done, amlodipine . Hyperlipidemia 97508411 E78.5 Stable. Will repeat labs today. Continue Atorvastat in. Counseled on diet and exercise. Hypertensi ve heart disease with congestive heart failure 9225194 I11.0 I50.9 Continue metoprolol , chlorthali done, and amlodipine . Low-salt low sugar diet. Monitor weight. Return with worsening. Hypothyroidism 92733590 E03.9 . Continue levothyrox ine. Repeat labs today. Chronic disease 30021015 R69 I counseled pt on chronic diseases. We discussed healthy diet, staying active/exe rcise. Pt is desiring further education. We will send to [place] [id number] for Chronic care education and other servcies. Morbid obesity 777972859 E66.01 I counseled pt on obesity. We discussed risks and ways to loose weight. Pt will work on diet, exercise. Moderate r ecurrent major depression 86361084 F33.1 Continue sertraline . refill trazodone. Counseled patient on signs and symptoms of worsening as well as need to stay on the sertraline without missing doses. Follow-up 3 month. Sooner with problems [id number] Rivka Kwok DO [facility] ([facility]) [address] [place] [address] [id number] 5 05/24/2024 12:53:56 05/25/2024 11:21:57 Type 2 diabetes mellitus 39536412 E11.69 E11.59 E11.22 E11.42 A1c extremely high at above 13. Patient needs to continue to work on low sugar diet and exercise. Continue glyburide and metformin. We are attempting to get Ozempic covered by insurance as this will be a very good medicine for him. Essential hypertension 45208922 I10 improved, continue metoprolol , chlorthali done, amlodipine . Hyperlipidemia 86039659 E78.5 Stable. Will repeat lab next appointmen t s. Continue Atorvastat in. Counseled on diet and exercise. Hypertensi ve heart disease with congestive heart failure 5380037 I11.0 I50.9 Continue metoprolol , chlorthali done, and amlodipine . Low-salt low sugar diet. Monitor weight. Return with worsening. Hypothyroidism 47744230 E03.9 Continue levothyrox ine. Peripheral arterial occlusive disease 816884942 I73.9 With history of stenting in bilateral lower extremitie s continue aspirin,, statin patient is to continue his blood pressure medication . Chronic insomnia 8566165 04 F51.04 Stable. Morbid obesity 081853522 E66.01 I counseled pt on obesity. We discussed risks and ways to loose weight. Pt will work on diet, exercise. Moderate r ecurrent major depression 25423670 F33.1 05/24/24: deteriorat ed. Counseled go to [facility] today, they take walkin patients, fill out paperwork and get setup to see Psychiatry . Chronic ki dney disease stage 2 514286722 N18.2 monitoring renal function. Psoriasis 1188010 L40.9 Triamcinol one ointment, counseled. [id number] Rivka Kwok DO [facility] ([facility]) [address] [place] [address] [id number] 5 06/01/2024 14:43:25 06/04/2024 07:09:24 Cough 01247624 R05.9 Influenza A virus present 9166272725 08 J09.X2 Counseled symptomati c tx, rest, fluids, Tylenol/ Ibuprofen, Immune boost, inhalers. Prednisone , Tamiflu. Counseled see ER immediatel y if symptoms worsen. COVID-19 167210974 U07.1 Paxlovid, counseled hold Plavix while taking this. [id number] Rivka Kwok DO [facility] ([facility]) [address] [place] [address] [id number] 5 06/09/2024 10:49:47 06/10/2024 15:01:53 Chronic obstructive pulmonary disease 06655098 J44.9 Not completely controlled . He has not been using his Symbicort. Counseled patient extensivel y on use of medication s. Type 2 cody betes mellitus 76696675 E11.69 E11.59 E11.22 E11.42 A1c extremely high at above 14, pt is to start his ozempic as it is covered by insurance. I counseled on high risk of other issues with diabetes out of countrol. we discussed DM in detail. he will work on low sugar diet, he will f/u with me in 3 wks. [id number] Rivka Kwok DO [facility] ([facility]) [address] [place] [address] [id number] 5 06/21/2024 10:37:03 06/21/2024 11:53:16 Hypothyroidism 01759244 E03.9 Continue levothyrox ine. Moderate r ecurrent major depression 77396332 F33.1 06/21/24: Deteriorat ed. Counseled with glucose out of control it can contribute to fatigue and decreased mood. I want him to resume his Sertraline for mood. He is willing to take his medication s as prescribed today. F/u with me in one week. Pt to see ER immediatel y if he feels he needs admission to Psychiatry . He admits after speaking with me in today's visit he feels more in control and better about his mood. Stopped Wellbutrin today. He will get back on sertraline and take it regularly. 05/24/24: deteriorat ed. Counseled go to [facility] today, they take walkin patients, fill out paperwork and get setup to see Psychiatry . Type 2 cody betes mellitus 98258058 E11.69 E11.59 E11.22 E11.42 06/21/24: Counseled uncontroll ed glucose can contribute to decreased mood, not thinking clearly. Counseled I do not want him taking Humalog. No Insulin at this time. I want him to resume his Ozempic. Stop Glyburide, continue Metformin. Essential hypertension 25679229 I10 06/21/24: Counseled hold Lisinopril and Coreg that was prescribed at hospital d/c. Continue Metoprolol , Amlodipine , Chlorthali done. Peripheral arterial occlusive disease 517510319 I73.9 06/21/24: Continue Asa and Cilostazol , stop Plavix. Hyperlipidemia 44818895 E78.5 06/21/24: Continue Atorvastat in. Counseled on diet and exercise. [id number] Rivka Kwok DO [facility] ([facility]) [address] [place] [address] [id number] 5 06/30/2024 11:02:44 07/05/2024 07:19:17 Moderate recurrent major depression 90880314 F33.1 06/30/24: much improved today. continue meds. counseled. 06/21/24: Deteriorat ed. Counseled with glucose out of control it can contribute to fatigue and decreased mood. I want him to resume his Sertraline for mood. He is willing to take his medication s as prescribed today. F/u with me in one week. Pt to see ER immediatel y if he feels he needs admission to Psychiatry . He admits after speaking with me in today's visit he feels more in control and better about his mood. Stopped Wellbutrin today. He will get back on sertraline and take it regularly. 05/24/24: deteriorat ed. Counseled go to [facility] today, they take walkin patients, fill out paperwork and get setup to see Psychiatry . Type 2 cody betes mellitus 53939001 E11.69 E11.59 E11.22 E11.42 06/30/24: tolerating ozempic but had to instruct him again on how to use pen. continue metformin. monitor closely. f/u in 1 mt.06/21/24 : Counseled uncontroll ed glucose can contribute to decreased mood, not thinking clearly. Counseled I do not want him taking Humalog. No Insulin at this time. I want him to resume his Ozempic. Stop Glyburide, continue Metformin. [id number] Rivka Kwok DO [facility] ([facility]) [address] [place] [address] [id number] 5 08/02/2024 14:45:07 08/08/2024 08:37:23 Type 2 diabetes mellitus 10351636 E11.69 E11.59 E11.22 E11.42 08/02/24: deteriorat ed, counseled increase Ozempic from 0.25 to 0.5 mg.06/30/24 : tolerating ozempic but had to instruct him again on how to use pen. continue metformin. monitor closely. f/u in 1 mt.06/21/24 : Counseled uncontroll ed glucose can contribute to decreased mood, not thinking clearly. Counseled I do not want him taking Humalog. No Insulin at this time. I want him to resume his Ozempic. Stop Glyburide, continue Metformin. Screening for malignant neoplasm of colon 963589949 Z12.11 I have reviewed and discussed colon cancer screening options, including colonoscop y. Discussed risks vs benefits including risk of infection and bleeding, perforatio n, possible need for surgery, reaction to medication s, and sever injury or . We discussed pt requiring sedation and possible general anesthesia . Pt agrees to proceed with Colonoscop y at [facility]. Preliminar y procedure date will be 09/15/24. Nausea 884125949 R11.0 Counseled take OTC B6, will also send Zofran. Gastroesop hageal reflux disease 216268200 K21.9 08/02/24: counseled daily Pantoprazo le for stomach.F/ u 3-4 weeks, reassess if we also need to plan EGD 09/15/24, when he has colonoscop y scheduled. [id number] Rivka Kwok DO [facility] ([facility]) [address] [place] [address] [id number] 5 08/30/2024 15:31:08 09/03/2024 20:40:43 Ingrowing toenail 439889997 L60.0 041280 acute infection resolved currently. but recurrent issue. Pt with DM2 and PAD. will refer to podiatry. counseled on foot and nail care. Screening for malignant neoplasm of colon 882369262 Z12.11 [id number] pts last colonoscop y was 03/03/19. no polyps. therefore pt is not due for screening colonoscop y until feb 2029 Hypertensi ve heart disease with congestive heart failure 5900804 I11.0 I50.9 continued angina with significan t PMH. He no longers sees cardiology at [facility]. I will refer to cardiololy . Continue metoprolol , chlorthali done, and amlodipine . Low-salt low sugar diet. Monitor weight. Return with worsening. [id number] Rivka Kwok DO [facility] ([facility]) [address] [place] [address] [id number] 5 09/27/2024 14:21:13 09/28/2024 12:41:56 Chronic kidney disease stage 2 742525372 N18.2 monitoring renal function. Hypothyroidism 39332101 E03.9 Continue levothyrox ine. Type 2 cody betes mellitus [id number] E11.69 E11.59 E11.22 E11.42 09/27/24: Lab today, pt due for diabetic eye exam after 11/11/24, with call Dr. Degroot regarding need for appt and cost of this. Increase Ozempic from 0.5mg wkly to 1.0mg wkly. Continue to monitor glucose.08/02/24: deteriorat ed, counseled increase Ozempic from 0.25 to 0.5 mg.06/30/24 : tolerating ozempic but had to instruct him again on how to use pen. continue metformin. monitor closely. f/u in 1 mt.06/21/24 : Counseled uncontroll ed glucose can contribute to decreased mood, not thinking clearly. Counseled I do not want him taking Humalog. No Insulin at this time. I want him to resume his Ozempic. Stop Glyburide, continue Metformin. [id number] Rivka Kwok DO [facility] ([facility]) [address] [place] [phone] 01/04/2025 13:09:56 01/05/2025 14:04:13 Type 2 diabetes mellitus [id number] E11.69 E11.59 E11.22 E11.42 09/27/24: Lab today, pt due for diabetic eye exam after 11/11/24, with call Dr. Degroot regarding need for appt and cost of this. Increase Ozempic from 0.5mg wkly to 1.0mg wkly. Continue to monitor glucose.08/02/24: deteriorat ed, counseled increase Ozempic from 0.25 to 0.5 mg.06/30/24 : tolerating ozempic but had to instruct him again on how to use pen. continue metformin. monitor closely. f/u in 1 mt.06/21/24 : Counseled uncontroll ed glucose can contribute to decreased mood, not thinking clearly. Counseled I do not want him taking Humalog. No Insulin at this time. I want him to resume his Ozempic. Stop Glyburide, continue Metformin. [id number] Rivka Kwok DO [facility] ([facility]) [address] [place] [address] 01/04/2025 14:50:47 01/05/2025 14:03:23 Chronic kidney disease stage 2 [id number] N18.2 monitoring renal function. Chronic ob structive pulmonary disease [id number] J44.9 Not completely controlled . He has not been using his Symbicort. Counseled patient extensivel y on use of medication s. Essential hypertension [id number] I10 Stable, continue current tx.06/21/24 : Counseled hold Lisinopril and Coreg that was prescribed at hospital d/c. Continue Metoprolol , Amlodipine , Chlorthali done. Hypothyroidism [id number] E03.9 Continue levothyrox ine. Moderate r ecurrent major depression [id number] F33.1 01/04/25: Continue Sertraline 100mg daily, counseled. 06/30/24: much improved today. continue meds. counseled. 06/21/24: Deteriorat ed. Counseled with glucose out of control it can contribute to fatigue and decreased mood. I want him to resume his Sertraline for mood. He is willing to take his medication s as prescribed today. F/u with me in one week. Pt to see ER immediatel y if he feels he needs admission to Psychiatry . He admits after speaking with me in today's visit he feels more in control and better about his mood. Stopped Wellbutrin today. He will get back on sertraline and take it regularly. 05/24/24: deteriorat ed. Counseled go to [facility] today, they take walkin patients, fill out paperwork and get setup to see Psychiatry . Type 2 cody betes mellitus [id number] E11.69 E11.59 E11.22 E11.42 01/04/25: A1c improved to 8.8, counseled we would like to get this down around 7, will increase Ozempic from 1mg to 2mg, counseled ( pt to call when he needs refilled, has enough 1mg doses to increase to 2mg at home right now). Continue working on diet, activity, will refer to Cardiopulm rehab to work on getting up and moving for exercise. 09/27/24: Lab today, pt due for diabetic eye exam after 11/11/24, with call Dr. Degroot regarding need for appt and cost of this. Increase Ozempic from 0.5mg wkly to 1.0mg wkly. Continue to monitor glucose.08/02/24: deteriorat ed, counseled increase Ozempic from 0.25 to 0.5 mg.06/30/24 : tolerating ozempic but had to instruct him again on how to use pen. continue metformin. monitor closely. f/u in 1 mt.06/21/24 : Counseled uncontroll ed glucose can contribute to decreased mood, not thinking clearly. Counseled I do not want him taking Humalog. No Insulin at this time. I want him to resume his Ozempic. Stop Glyburide, continue Metformin. Health Concerns Section Related Observation LastModified by Organization Detai ls LastModified Time None Recorded Concern Status LastModified by Organization Details LastModified Time None Recorded Advance Directives Directive None Recorded Payers Insurance Date Sequence Insurance Name Policy Number Policy Sosa Covered Member ID Sosa Member ID Guarantor Name 01/02/2025 1 [employer] (MEDICARE REPLACEMENT/ ADVANTAGE - PPO) Emerson Monique [id number] Emerson Monique Notes Date Note Type Note Provider Name and Address Organization Details Recorded Time 08/02/2024 text/html ROS as noted in the HPI Pt presents for stomach problems He reports at times he coughs so much he vomits, he wakes up with nausea. He states that coughing after he eats is getting worse. This has been ongoing for months prior to starting ozempic.He says he needs to schedule Colonoscopy, wondering if he also needs EGD. He denies reflux or heartburn sx He has not checked his blood sugar today and wants it checked, in clinic bs is 341A1c 13.3 on 06/11/24.He admits he has been eating out a lot lately.Continues Ozempic .25mg on Mondays, Metformin BID. Mood has been better. He reports he is more active now, eating less. Overall his mood is improved. Rivka Kwok, DO [address] [place], [phone], [employer], [place] 08/07/2024 21:07:06 08/30/2024 text/html ROS as noted in the HPI Pt presents for ER f/u for dizziness, DM, GI issues he went to the ER on 08/26/24 for dizziness that would not stop . His glucose was 403 on presentation, with a1c of 13. He reports the dizziness has resolved at this time . he has been taking his diabetes meds more regular now. He still is having occasional queasiness and no vomitingsince his last visit he has only had vomiting x2 His bs was 240 this am, he states it was high when he went to the ER on 08/26/24 and after some fluids it came down he would like to get referral to podiatry due to recurrent ingrown nails and thick yellow nails. 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 09/01/2024 16:02:34 09/27/2024 text/html ROS as noted in the HPI Pt presents for recheck 1 month and ER f/u He went to the ER on 09/23/24 for SOB and weakness while taking a shower. He felt so dizzy he thought he was going to pass out. W/u completed. Dc'd home. He has not had any further episodes since.BUN 28, Cr 14, glucose 372. he wants to discuss kidney function, at the ER was elevated but told it was normal elevated kidney function.He is also concerned after being told his liver enzymes were elevated ( TB 1.2, AST 17, ALT 16, Alk Phos 62 per ER note, all wnl, TB on higher side of normal). A1 13.3 on 06/11/24.He did not get Colonoscopy at [facility] d/t A1c being > 12. He will reschedule this in the future, no current bowel concerns.He reports glucose continues to run high.He continues Ozempic, tolerating well, reports his last dose he was only able to take .15mg, the dial wouldn't go up to .50mg. He is unsure if this was his 4th dose or 5th dose, will inquire with pharmacy if there was extra put in and he was taking a 5th dose from that pen. TSH 5.45 on 05/24/24. Diabetic eye exam--he is due after 11/12/23. He saw Dr. Degroot 9 months ago and was to f/u for cataract surgery and lens replacement, He needs to find out about the cost. He will look into an appt for this. Mood has been improved lately, he reports he is feeling better, however admits he does still find it hard to get motivated and do things. Rivka Kwok DO [address] [place] [address], [phone], [facility] 10/20/2024 00:14:00 01/04/2025 text/html ROS as noted in the HPI Pt presents for recheck 3 months D labs done on 01/04/25:Ac1 was 8.8, decreased from 10.7 on 09/07/24Glucose 267.BUN 25, Cr 1.1. He reports glucose continues to run in the 200-300s, fasting. improved from 400-500sHe continues Ozempic 1mg, Metformin, tolerating well.No new feet or vision problems. He is concerned he is not having success with weight loss, despite trying. He is unsure what else he can do at home. He is unable to walk very far, has a hard time just walking to get his groceries at [employer]. He has been to Cardio/ pulm rehab in the past, years ago, willing to do so again. He did not get Colonoscopy at [facility] d/t A1c being > 12. He will reschedule this in the future, no current bowel concerns. patient states his mental health has been questionable, has been under a lot of stress, trying to get his property sold so he can move into town so he can move his sister close to town, he is very concerned for her health and her weight.Continues Sertraline 100mg daily, tolerating well. Rivka Kwok DO [address] [place] [address], [phone], [facility] 01/05/2025 08:22:50
--- OUTSIDE RECORDS SUMMARY | 2025-03-01 16:08 | XMS_ITS | Clinical Summary ---
Author Organization [employer] Address [address] [facility] Attn: Epic Prelude ADT JOHN HERNANDEZ [address] Care Team Providers Care Playground Monitor Name Role Phone Brendan Horn DO Primary Care Provider [phone] Allergies Active Allergy Reactions Criticality Noted Date Comments Lisinopril Swelling 11/11/2018 Medications amLODIPine (NORVASC) 10 mg tablet Take 5 mg by mouth daily. 11/11/2018 Active levothyroxine 137 mcg tablet Take 137 mcg by mouth daily early childhood coordinator. 11/11/2018 Active clopidogreL (PLAVIX) 75 mg Tablet Take 75 mg by mouth daily. 11/11/2018 Active metFORMIN (GLUCOPHAGE) 1,000 mg tablet Take 1,000 mg by mouth 2 times daily with meals. 11/11/2018 Active GLYBURIDE ORAL Take 3 mg by mouth. 11/11/2018 Active metoprolol succinate (TOPROL XL) 25 mg Extended Release 24 hour tablet Take 25 mg by mouth 2 times daily. 11/11/2018 Active cilostazoL (PLETAL) 100 mg Tablet Take 100 mg by mouth 2 times daily before meals. 11/11/2018 Active aspirin (DIVINE CHEWABLE) 81 mg Tablet, Chewable Take 81 mg by mouth daily. 11/11/2018 Active atorvastatin (LIPITOR) 10 mg tablet Take 10 mg by mouth daily with supper. 11/11/2018 Active chlorthalidone (HYGROTON) 25 mg tablet Take 25 mg by mouth daily. 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 Gender Identity Not on file Sexual Orientation Not on file Last Filed Vital Signs Vital Sign Reading Time Taken Comments Blood Pressure 122/62 11/11/2018 4:46 AM CDT Pulse 71 11/11/2018 12:36 AM CDT Temperature 36.3 C (97.3 F) 11/11/2018 4:46 AM CDT Respiratory Rate 18 11/11/2018 4:46 AM CDT Oxygen Saturation - - Inhaled Oxygen Concentration - - Weight 106.3 kg (234 lb 6.4 oz) 019 12:36 AM CDT Height 167.6 cm (5' 6 ) 11/11/2018 12:3 6 AM CDT Body Mass Index 37.83 11/11/2018 12:36 AM CDT Plan of Treatment Health Maintenance Due Date Last Done Comments DIABETES ANNUAL FOOT EXAM 1975 DIABETES ANNUAL RETINAL EXAM 1975 DIABETES MICROALBUMIN ANNUAL SCREEN 1975 LDL CHOLESTEROL ANNUAL 1975 DTAP/TDAP/TD VACCINES (1 - Tdap) 1976 PNEUMOCOCCAL VACCINE 50+ YEA RS (1 of 2 - PCV) 1976 COLORECTAL SCREENING 2002 Colorectal Cancer Screening 2002 FIT-DNA Q 3 years 2002 FIT/FOBT Q 1 year 2002 Flex Sig/CT Colonography Q 5 years 2002 RSV VACCINE (60+ or ) (1 - Risk 50-74 years 1-dose series) 2007 ZOSTER VACCINE (1 of 2) 2007 INFLUENZA VACCINE (#1) 2024 DIABETES HBA1C Q 6 MONTHS 12/09/2024 06/11/2024, Care Teams Playground Monitor Relationship Specialty Start Date End Date Brendan Horn DO PCP - General Family Practice 11/11/18
--- OUTSIDE RECORDS SUMMARY | 2025-03-01 16:08 | XMS_ITS | Clinical Summary ---
Author Organization [facility] Address [address] [address] Phone Care Team Providers Care Real Time Analyst Name Role Phone Brendan Horn DO Primary Care Provider [phone] Allergies Active Allergy Reactions Criticality Noted Date Comments Lisinopril Swelling 11/11/2018 Medications metoprolol succinate (TOPROL XL) 25 mg Extended Release 24 hour tablet Take 25 mg by mouth 2 times daily. Active chlorthalidone (HYGROTON) 25 mg tablet Take 25 mg by mouth daily. Active cilostazol (PLETAL) 100 mg Tablet Take 100 mg by mouth 2 times daily before meals. Active clopidogrel (PLAVIX) 75 mg Tablet Take 75 mg by mouth daily. Active atorvastatin (LIPITOR) 10 mg tablet Take 10 mg by mouth daily with supper. Active aspirin (DIVINE CHEWABLE) 81 mg Tablet, Chewable Take 81 mg by mouth daily. Active amLODIPine (NORVASC) 10 mg tablet Take 5 mg by mouth daily. Active GLYBURIDE ORAL Take 3 mg by mouth. Active levothyroxine 137 mcg tablet Take 137 mcg by mouth daily early childhood specialist. Active metFORMIN (GLUCOPHAGE) 1,000 mg tablet Take 1,000 mg by mouth 2 times daily with meals. Active Social History Tobacco Use Types Packs/Day Years Used Date Smoking Tobacco: Never Smokeless Tobacco: Never Sex and Gender Information Value Date Recorded Sex Assigned at Not on file Legal Sex Male 12:08 AM CDT Gender Identity Not on file Sexual Orientation Not on file Last Filed Vital Signs Vital Sign Reading Time Taken Comments Blood Pressure 122/62 11/11/2018 4:46 AM CDT Pulse 71 11/11/2018 12:36 AM CDT Temperature 36.3 C (97.3 F) 11/11/2018 4:46 AM CDT Respiratory Rate 18 11/11/2018 4:46 AM CDT Oxygen Saturation 100% 11/11/2018 4:46 AM CDT Inhaled Oxygen Concentration - - Weight 106.3 kg (234 lb 6.4 oz) 019 12:36 AM CDT Height 167.6 cm (5' 6 ) 11/11/2018 12:3 6 AM CDT Body Mass Index 37.83 11/11/2018 12:36 AM CDT Plan of Treatment Health Maintenance Due Date Last Done Comments DTAP/TDAP/TD VACCINES (1 - Tdap) 1976 COLORECTAL SCREENING 2002 Colorectal Cancer Screening 2002 FIT-DNA Q 3 years 2002 FIT/FOBT Q 1 year 2002 Flex Sig/CT Colonography Q 5 years 2002 PNEUMOCOCCAL VACCINE 50+ YEARS (1 of 1 - PCV) 05/27/19 08 ZOSTER VACCINE (1 of 2) 2007 INFLUENZA VACCINE (#1) 2024 RSV VACCINE (60+ or ) (1 - 1-dose 75+ series) 2032 Insurance [employer] [id number] HMO Care Teams Real Time Analyst Relationship Specialty Start Date End Date Brendan Horn DO PCP - General Family Practice 11/11/18
--- OUTSIDE RECORDS SUMMARY | 2025-03-01 16:08 | XMS_ITS | Encounter Summary ---
Author Organization [employer] Address 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
[2025-03-01 16:14] VITALS: BP 142/85; PULSE 89; RESP 18; TEMP 36.9; O2SAT 97
--- NOTE | 2025-03-01 16:21 | ECG_ITS ---
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 Measurements Intervals [place] Rate: 85 P: 47 HI: 142 QRS: -28 QRSD: 147 T: 50 QT: 373 QTc: 444 Interpretive Statements SINUS RHYTHM BORDERLINE LEFT AXIS DEVIATION [QRS AXIS < -20] RIGHT BUNDLE BRANCH BLOCK [120+ ms QRS DURATION, UPRIGHT V1, 40+ ms S IN I/aVL/V4/V5/V6] Poor R wave progression, cannot exclude old anterior infarction. Compared to ECG 09/23/2024 18:38:39 NO SIGNIFICANT CHANGE Electronically Signed On 03-04-2025 20:22:31 CDT by Bob Heart M.D. [email or web address]
--- NOTE | 2025-03-01 16:21 | W.ED.PSYCHS ---
Documented by User: AWILDA Olivares 03/01/25 19:55 HPI - Psych General: Chief Complaint: Psychiatric Symptoms Stated Complaint: SI Time Seen by Provider: 03/01/25 16:10 History of Present Illness: Patient is a 69-year-old male history of DM, CAD, hypertension, presents to the emergency room due to suicide thoughts. Content: Patient was upstairs obtaining cardiac clearance for eye surgery, when he was asked routine questions regarding suicide thoughts and depression for which he honestly answered yes. He states he does have thoughts of suicide, however no plan. He has not had his antidepressant for approximately 3 weeks other than on a very sporadic basis. He stated basically the entire 3 weeks. He has not been admitted to psychiatric facility in a couple years, and this was here. Associated symptoms: Reports depression and suicidal ideation Related Data Home Medications ?Medication ?Instructions ?Recorded ?Confirmed amlodipine 10 mg tablet 10 mg PO DAILY 06/16/19 03/01/25 aspirin 81 mg tablet,delayed 81 mg PO DAILY 06/16/19 03/01/25 release (Adult Low Dose Aspirin) clopidogrel 75 mg tablet 75 mg PO DAILY 06/16/19 03/01/25 nitroglycerin 0.4 mg sublingual 0.4 mg sublingual Q5M PRN Chest 07/10/21 03/01/25 tablet (Nitrostat) Pain sertraline 100 mg tablet (Zoloft) 100 mg PO DAILY 07/10/21 03/01/25 atorvastatin 40 mg tablet 40 mg PO QPM 08/26/24 03/01/25 glyburide micronized 3 mg tablet 3 mg PO DAILY 08/26/24 03/01/25 levothyroxine 175 mcg tablet 175 mcg PO QAM 08/26/24 03/01/25 metformin 1,000 mg tablet 1,000 mg PO BID 08/26/24 03/01/25 metoprolol tartrate 25 mg tablet 25 mg PO BID 08/26/24 03/01/25 pyridoxine (vitamin B6) 100 mg 100 mg PO DAILY 08/26/24 03/01/25 tablet (Vitamin B-6) semaglutide 0.25 mg or 0.5 mg (2 0.25 mg SUBCUT Q7D 08/26/24 03/01/25 mg/3 mL) subcutaneous pen injector (Ozempic) Previous Rx's ?Medication ?Instructions ?Recorded chlorthalidone 25 mg tablet 50 mg (2 x 25 mg) PO DAILY #90 tabs 07/10/21 blood-glucose meter (Blood Glucose #1 ea 06/12/24 Monitoring kit) lancets #100 ea 06/12/24 pen needle, diabetic 32 gauge x #50 ea 06/12/2405/07 (BD Ultra-Fine Micro Pen Needle) Allergies Allergy/AdvReac Type Severity Reaction Status Date / Time lisinopril Allergy Unknown Verified 03/01/25 14:52 Review of Systems General: Reports: 10 or more systems reviewed and unremarkable except in HPI and below Const: Denies: fever(s) or chills Card: Denies: chest pain, palpitations, irregular heart rhythm, swelling of feet/ankles, lightheadedness, pre-syncope or dyspnea on exertion Resp: Denies: dyspnea or non-productive cough GI: Denies: abdominal pain, nausea or vomiting Musc: Denies: neck pain, back pain or extremity pain Neuro: Denies: headache(s) or numbness in extremities Psych: Reports: anxiety, depression, loss of interest, irritability and suicidal ideation; Denies: mood swings or paranoia PFSH ED PFSH: Medical History (Updated 03/01/25 @ 18:37 by AWILDA Olivares) Uncontrolled hypertension History of colon cancer Hypothyroidism Hx of coronary atherosclerosis Anemia Obesity Cellulitis Oxygen dependent Venous stasis of lower extremity Bilateral carotid artery stenosis PVD (peripheral vascular disease) Mixed hyperlipidemia Benign essential hypertension CHF (congestive heart failure) Peripheral artery disease Coronary artery disease Diabetes mellitus COPD (chronic obstructive pulmonary disease) Major depressive disorder, recurrent, mild Surgical History Hx of shoulder surgery S/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 History of bilateral hip arthroplasty Family History Mother CAD (coronary artery disease) Diabetes Father CAD (coronary artery disease) Denies family history of Clotting disorder Anesthesia complication Bleeding disorder Social History Smoking and tobacco/nicotine status: former use of tobacco/nicotine Quit status (tobacco/nicotine): has quit using Year quit tobacco: age 26 Former quit date comment: 1ppd x 3years Alcohol intake: never Substance/Drug Use: never Physical Exam Const: COMMON NORMALS: no acute distress, average body habitus and patient oriented x3 HENMT: COMMON NORMALS: normocephalic and atraumatic HEAD & SCALP: normocephalic and atraumatic Eye: COMMON NORMALS: Equal, round and reactive pupils present, EOMs intact bilaterally, conjunctivae normal and no scleral icterus CONJUNCTIVA: Yes conjunctivae normal PUPIL: Yes Equal, round and reactive pupils present Neck/C-Spine: COMMON NORMALS: full ROM and no lymphadenopathy Lymph: LYMPHATIC: no lymphadenopathy noted Chest: COMMONS NORMALS: normal inspection of the chest and normal palpation of entire chest wall Resp: COMMON NORMALS: normal respiratory effort, No retractions and clear to auscultation bilaterally AUSCULTATION: clear to auscultation bilaterally Cardio: COMMON NORMALS: regular rate and regular rhythm RATE: regular rate RHYTHM: regular rhythm GI: COMMON NORMALS: Normal to inspection, nondistended, normoactive bowel sounds present, Soft to palpation, non-tender and No hepatosplenomegaly present PALPATION: Yes Soft to palpation and Yes No hepatosplenomegaly present : COMMON NORMALS: Yes no CVA tenderness BLADDER/KIDNEY EXAM: Yes no CVA tenderness Back/Pelvis: COMMON NORMALS: no CVA tenderness Extremity: COMMON NORMALS: normal to inspection, full ROM and capillary refill normal Neuro: COMMON NORMALS: patient oriented x3 Psych: COMMON NORMALS: mental status grossly normal, Normal thought process present and cooperative THOUGHT PROCESS: Normal thought process present Face to Face: Restrn/Seclusion Events leading up to initiation: Verbalizing threat to self or others and Combative/Striking out at staff or others Evaluation of patient's immediate situation: Alert and oriented and No signs of physical distress Patient reaction since intervention applied: Continued attempts/displays harmful behavior Recent labs reviewed: Yes Review of medications: Yes Patient's current medical/behavioral condition: No new concerns since last ROS Need for restraint or seclusion is: Continued Attending notified: Yes Course Reevaluation(s): Reevaluation #1: Patient refused care, unfortunately given his suicide thoughts, and also he did tell the triage nurse he was suicidal with thoughts without plan, he will be placed on a 96-hour hold and referred to a psychiatrist. He required restraint, Zhanna Ativan given Consultations: Consultation #1: Dr. Floyd did not feel comfortable with 69-year-old male, nondemented, does his own ADLs. He recommends we find a bed for him somewhere else. Vital Signs: Vital signs: Vital Signs Temperature 98.5 F 03/01/25 16:14 Pulse Rate 89 03/01/25 16:14 Respiratory Rate 18 03/01/25 16:14 Blood Pressure 176/90 03/01/25 17:03 Pulse Oximetry 97 03/01/25 16:14 Oxygen Delivery Me thod Room Air 03/01/25 16:14 MDM - Psych Medical Decision Making 69-year-old male that went to routine doctor appointment and answered routine questions, was brought to the emergency room for psychiatric evaluation. Patient admits to suicide thoughts, however these are fleeting. Will make referral to neuropsychiatric unit after routine labs and screening. Patient denies any drug or alcohol use. Patient is calmer at bedside. Declined Geodon and Ativan. Patient did not have these administered to him. Restraints removed. Patient does refuse to eat. He then states that he fasts from everything but water for days/a week Dr. Cabral feels this patient might be prone for dementia and recommends transfer. Medical Records I reviewed the patient's medical records. Lab Data I reviewed the patient's lab results. 03/01/25 17:03 03/01/25 17:03 Laboratory Results WBC 10.25 10^3/uL (3.29-11.43) 03/01/25 17:03 RBC 4.67 10^6/uL (3.85-5.65) 03/01/25 17:03 Hgb 14.10 g/dL (11.27-16.99) 03/01/25 17:03 Hct 42.7 % (37-53) 03/01/25 17:03 MCV 91.4 fl (82-101) 03/01/25 17:03 MCH 30.2 pg (27-33) 03/01/25 17:03 MCHC 33.0 g/dL (30-55) 03/01/25 17:03 RDW 12.2 % (12.1-15.1) 03/01/25 17:03 Plt Count 283 10^3/cmm (157-399) 03/01/25 17:03 MPV 9.0 fL (7.4-10.4) 03/01/25 17:03 Neut % (Auto) 61.3 % 03/01/25 17:03 Lymph % (Auto) 26.0 % 03/01/25 17:03 Fannin % (Auto) 10.0 % 03/01/25 17:03 Eos % (Auto) 1.7 % 03/01/25 17:03 Baso % (Auto) 0.8 % 03/01/25 17:03 Neut # (Auto) 6.29 10^3/uL (1.8-7.7) 03/01/25 17:03 Lymph # (Auto) 2.7 10^3/uL (0.8-4.8) 03/01/25 17:03 Fannin # (Auto) 1.0 10^3/uL (0.2-0.9) H 03/01/25 17:03 Eos # (Auto) 0.2 10^3/uL (0.0-0.8) 03/01/25 17:03 Baso # (Auto) 0.1 10^3/uL (0.0-0.1) 03/01/25 17:03 Nucleated RBC % (auto) 0 % 03/01/25 17:03 Nucleated RBCs # 0.0 /100WBC 03/01/25 17:03 Sodium 137 mmol/L (136-145) 03/01/25 17:03 Potassium 4.1 mmol/L (3.5-5.1) 03/01/25 17:03 Chloride 98 mmol/L (98-107) 03/01/25 17:03 Carbon Dioxide 22 mmol/L (22-29) 03/01/25 17:03 Anion Gap 21.1 (5-19) H 03/01/25 17:03 BUN 25 mg/dL (8-23) H 03/01/25 17:03 Creatinine 1.0 mg/dL (0.7-1.2) 03/01/25 17:03 GFR Calculation 74.5 mL/min (90-130) L 03/01/25 17:03 Glucose 238 mg/dL (65-115) H 03/01/25 17:03 Calculated Osmolality 296 mOsm/kg (285-295) H 03/01/25 17:03 Calcium 10.0 mg/dL (8.5-10.5) 03/01/25 17:03 Total Bilirubin 0.8 mg/dL (0.15-1.2) 03/01/25 17:03 AST 15 U/L (0-40) 03/01/25 17:03 ALT 17 U/L (0-41) 03/01/25 17:03 Alkaline Phosphatase 73 U/L (40-130) 03/01/25 17:03 Total Protein 8.0 g/dL (6.6-8.7) 03/01/25 17:03 Albumin 4.3 g/dL (3.5-5.2) 03/01/25 17:03 Globulin 3.7 g/dL (1.3-4.6) 03/01/25 17:03 TSH 0.04 uIU/mL (0.27-4.20) L 03/01/25 17:03 Salicylates < 0.3 mg/dL (3-10) L 03/01/25 17:03 Acetaminophen < 5.0 ug/mL (10-30) L 03/01/25 17:03 Ethyl Alcohol < 10 mg/dL (0-10) 03/01/25 17:03 No radiology studies performed this visit EKG Data EKG 1: Interpretation: Normal sinus rhythm, left axis, incomplete right bundle, QTc 415 Discharge Plan Discharge Patient Disposition: Xfer Short-Term Hosp Clinical Impression: Suicidal ideation, Secondary hyperthyroidism Condition: Stable Referrals: Brendan Horn DO [Primary Care Provider, [facility]] Discharge Diet: Usual diet Discharge Activity: Resume usual activity Activity Restrictions/Additional Instructions: - Reduce levothyroxine to 125 mcg daily and repeat level in 1 month. Stop your levothyroxine 175 mcg. Your new dosage was sent to the pharmacy. Print Language: Algerian Coding Level of Care Code ED Nursing Staff Development Coordinator for Chg Fwd Documented by User: Linda Flores MD 03/01/25 19:56 HPI - Psych General: Chief Complaint: Psychiatric Symptoms Stated Complaint: SI Time Seen by Provider: 03/01/25 16:10 Related Data Home Medications ?Medication ?Instructions ?Recorded ?Confirmed amlodipine 10 mg tablet 10 mg PO DAILY 06/16/19 03/01/25 aspirin 81 mg tablet,delayed 81 mg PO DAILY 06/16/19 03/01/25 release (Adult Low Dose Aspirin) clopidogrel 75 mg tablet 75 mg PO DAILY 06/16/19 03/01/25 nitroglycerin 0.4 mg sublingual 0.4 mg sublingual Q5M PRN Chest 07/10/21 03/01/25 tablet (Nitrostat) Pain sertraline 100 mg tablet (Zoloft) 100 mg PO DAILY 07/10/21 03/01/25 atorvastatin 40 mg tablet 40 mg PO QPM 08/26/24 03/01/25 glyburide micronized 3 mg tablet 3 mg PO DAILY 08/26/24 03/01/25 levothyroxine 175 mcg tablet 175 mcg PO QAM 08/26/24 03/01/25 metformin 1,000 mg tablet 1,000 mg PO BID 08/26/24 03/01/25 metoprolol tartrate 25 mg tablet 25 mg PO BID 08/26/24 03/01/25 pyridoxine (vitamin B6) 100 mg 100 mg PO DAILY 08/26/24 03/01/25 tablet (Vitamin B-6) semaglutide 0.25 mg or 0.5 mg (2 0.25 mg SUBCUT Q7D 08/26/24 03/01/25 mg/3 mL) subcutaneous pen injector (Ozempic) Previous Rx's ?Medication ?Instructions ?Recorded chlorthalidone 25 mg tablet 50 mg (2 x 25 mg) PO DAILY #90 tabs 07/10/21 blood-glucose meter (Blood Glucose #1 ea 06/12/24 Monitoring kit) lancets #100 ea 06/12/24 pen needle, diabetic 32 gauge x #50 ea 06/12/2405/07 (BD Ultra-Fine Micro Pen Needle) Allergies Allergy/AdvReac Type Severity Reaction Status Date / Time lisinopril Allergy Unknown Verified 03/01/25 14:52 PFSH ED PFSH: Medical History (Updated 03/01/25 @ 18:37 by AWILDA Olivares) Uncontrolled hypertension History of colon cancer Hypothyroidism Hx of coronary atherosclerosis Anemia Obesity Cellulitis Oxygen dependent Venous stasis of lower extremity Bilateral carotid artery stenosis PVD (peripheral vascular disease) Mixed hyperlipidemia Benign essential hypertension CHF (congestive heart failure) Peripheral artery disease Coronary artery disease Diabetes mellitus COPD (chronic obstructive pulmonary disease) Major depressive disorder, recurrent, mild Surgical History Hx of shoulder surgery S/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 History of bilateral hip arthroplasty Family History Mother CAD (coronary artery disease) Diabetes Father CAD (coronary artery disease) Denies family history of Clotting disorder Anesthesia complication Bleeding disorder Social History Smoking and tobacco/nicotine status: former use of tobacco/nicotine Quit status (tobacco/nicotine): has quit using Year quit tobacco: age 26 Former quit date comment: 1ppd x 3years Alcohol intake: never Substance/Drug Use: never Course Vital Signs: Vital signs: Vital Signs Temperature 98.5 F 03/01/25 16:14 Pulse Rate 89 03/01/25 16:14 Respiratory Rate 18 03/01/25 16:14 Blood Pressure 176/90 03/01/25 17:03 Pulse Oximetry 97 03/01/25 16:14 Oxygen Delivery Me thod Room Air 03/01/25 16:14 MDM - Psych Medical Decision Making 69-year-old male that went to routine doctor appointment and answered routine questions, was brought to the emergency room for psychiatric evaluation. Patient admits to suicide thoughts, however these are fleeting. Will make referral to neuropsychiatric unit after routine labs and screening. Patient denies any drug or alcohol use. Patient is calmer at bedside. Declined Geodon and Ativan. Patient did not have these administered to him. Restraints removed. Patient does refuse to eat. He then states that he fasts from everything but water for days/a week Dr. Cabral feels this patient might be prone for dementia and recommends transfer. The case was discussed with the midlevel provider. Evaluation and management service: I agree with the evaluation and management decisions made in this patient's care. Results interpretation: I agree with the study interpretation in this patient's care, I agree with the documentation of the study interpretation. Lab Data 03/01/25 17:03 03/01/25 17:03 Laboratory Results WBC 10. 10^3/uL (3.29-11.43) 03/01/25 17:03 RBC 4.67 10^6/uL (3.85-5.65) 03/01/25 17:03 Hgb 14.10 g/dL (11.27-16.99) 03/01/25 17:03 Hct 42.7 % (37-53) 03/01/25 17:03 MCV 91.4 fl (82-101) 03/01/25 17:03 MCH 30.2 pg (27-33) 03/01/25 17:03 MCHC 33.0 g/dL (30-55) 03/01/25 17:03 RDW 12.2 % (12.1-15.1) 03/01/25 17:03 Plt Count 283 10^3/cmm (157-399) 03/01/25 17:03 MPV 9.0 fL (7.4-10.4) 03/01/25 17:03 Neut % (Auto) 61.3 % 03/01/25 17:03 Lymph % (Auto) 26.0 % 03/01/25 17:03 Fannin % (Auto) 10.0 % 03/01/25 17:03 Eos % (Auto) 1.7 % 03/01/25 17:03 Baso % (Auto) 0.8 % 03/01/25 17:03 Neut # (Auto) 6.29 10^3/uL (1.8-7.7) 03/01/25 17:03 Lymph # (Auto) 2.7 10^3/uL (0.8-4.8) 03/01/25 17:03 Fannin # (Auto) 1.0 10^3/uL (0.2-0.9) H 03/01/25 17:03 Eos # (Auto) 0.2 10^3/uL (0.0-0.8) 03/01/25 17:03 Baso # (Auto) 0.1 10^3/uL (0.0-0.1) 03/01/25 17:03 Nucleated RBC % (auto) 0 % 03/01/25 17:03 Nucleated RBCs # 0.0 /100WBC 03/01/25 17:03 Sodium 137 mmol/L (136-145) 03/01/25 17:03 Potassium 4.1 mmol/L (3.5-5.1) 03/01/25 17:03 Chloride 98 mmol/L (98-107) 03/01/25 17:03 Carbon Dioxide 22 mmol/L (22-29) 03/01/25 17:03 Anion Gap 21.1 (5-19) H 03/01/25 17:03 BUN 25 mg/dL (8-23) H 03/01/25 17:03 Creatinine 1.0 mg/dL (0.7-1.2) 03/01/25 17:03 GFR Calculation 74.5 mL/min (90-130) L 03/01/25 17:03 Glucose 238 mg/dL (65-115) H 03/01/25 17:03 Calculated Osmolality 296 mOsm/kg (285-295) H 03/01/25 17:03 Calcium 10.0 mg/dL (8.5-10.5) 03/01/25 17:03 Total Bilirubin 0.8 mg/dL (0.15-1.2) 03/01/25 17:03 AST 15 U/L (0-40) 03/01/25 17:03 ALT 17 U/L (0-41) 03/01/25 17:03 Alkaline Phosphatase 73 U/L (40-130) 03/01/25 17:03 Total Protein 8.0 g/dL (6.6-8.7) 03/01/25 17:03 Albumin 4.3 g/dL (3.5-5.2) 03/01/25 17:03 Globulin 3.7 g/dL (1.3-4.6) 03/01/25 17:03 TSH 0.04 uIU/mL (0.27-4.20) L 03/01/25 17:03 Salicylates < 0.3 mg/dL (3-10) L 03/01/25 17:03 Acetaminophen < 5.0 ug/mL (10-30) L 03/01/25 17:03 Ethyl Alcohol < 10 mg/dL (0-10) 03/01/25 17:03 Discharge Plan Discharge Patient Disposition: Xfer Short-Term Hosp Clinical Impression: Suicidal ideation, Secondary hyperthyroidism Condition: Stable Referrals: Brendan Horn, [Primary Care Provider, [facility]] Discharge Diet: Usual diet Discharge Activity: Resume usual activity Activity Restrictions/Additional Instructions: - Reduce levothyroxine to 125 mcg daily and repeat level in 1 month. Stop your levothyroxine 175 mcg. Your new dosage was sent to the pharmacy. Print Language: Algerian Coding Level of Care Code ED Nursing Staff Development Coordinator for Crystal Junior
[2025-03-01 17:03] VITALS: BP 176/90
[2025-03-01 17:13] LABS: Hematocrit 42.7 % (37-53); Hemoglobin 14.10 g/dL (11.27-16.99); Mean Corpuscular HGB Conc 33.0 g/dL (30-55); Mean Corpuscular Hemoglobin 30.2 pg (27-33); Mean Corpuscular Volume 91.4 fl (82-101); Nucleated Red Blood Cells % 0 %; Platelet Count 283 10^3/cmm (157-399); Red Blood Count 4.67 10^6/uL (3.85-5.65); White Blood Count 10.25 10^3/uL (3.29-11.43)
--- NOTE | 2025-03-01 17:16 | PC.NURSE ---
PT agreed to cooperate with staff. PT did not receive ativan or geodon injections. PT was removed from violent restraint bed shortly after being placed. PT educated on 96 hr hold and has agreed to cooperate with staff at this time
--- NOTE | 2025-03-01 17:38 | PC.NURSE ---
Pt was served his 96 hour hold rights
[2025-03-01 17:53] LABS: Alanine Aminotransferase 17 U/L (0-41); Albumin Level 4.3 g/dL (3.5-5.2); Alkaline Phosphatase 73 U/L (40-130); Anion Gap 21.1 (5-19); Aspartate Amino Transferase 15 U/L (0-40); Blood Urea Nitrogen 25 mg/dL (8-23); Calcium 10.0 mg/dL (8.5-10.5); Carbon Dioxide 22 mmol/L (22-29); Chloride 98 mmol/L (98-107); Creatinine Clr Calc Pharmacy 77.9218; Globulin 3.7 g/dL (1.3-4.6); Glucose 238 mg/dL (65-115); Osmolality Calculated 296 mOsm/kg (285-295); Potassium 4.1 mmol/L (3.5-5.1); Sodium 137 mmol/L (136-145); Thyroid Stimulating Hormone 0.04 uIU/mL (0.27-4.20); Total Protein 8.0 g/dL (6.6-8.7)
[2025-03-01 17:54] LABS: Acetaminophen < 5.0 ug/mL (10-30); Alcohol Level < 10 mg/dL (0-10); Salicylate < 0.3 mg/dL (3-10)
[2025-03-01 20:25] LABS: Glucose Urine UA 2+ (Normal); Nitrate Urine Negative (Negative); Specific Gravity, Urine 1.024 (1.005-1.030)
[2025-03-01 20:29] LABS: Add Urine Microscopic? YES
[2025-03-01 20:32] LABS: PCP Screen Urine Negative (Negative)
[2025-03-01 21:23] LABS: Respiratory Syncytial Virus Ce NEGATIVE (Negative); SARS-CoV-2 PCR NEGATIVE (Negative)
[2025-03-02 01:55] VITALS: BP 163/78; PULSE 73; O2SAT 98
--- NOTE | 2025-03-02 09:25 | PC.NURSE ---
Pt was delivered breakfast tray
--- NOTE | 2025-03-02 10:25 | XR_ITS ---
WS: [id number] Exam: XR elbow LT 2V [id number] Date/Time of Exam: 03/02/2025 10:25 AM Reason For Exam: left elbow pain DLP: No fracture or dislocation. The joints are relatively well-maintained. Small bone spur along the olecranon process. Normal soft tissues. No joint effusion. XR/XR elbow LT 2V [id number] IMPRESSION: 1. Small (olecranon spur otherwise negative LEFT elbow.
--- NOTE | 2025-03-02 10:29 | PC.NURSE ---
pt states his left elbow is hurting after code10 yesterday, provider ntfd, xray ordered.
--- NOTE | 2025-03-02 10:58 | PC.NURSE ---
PATIENT REPORTED TO THIS NURSE HE HAS PAIN IN LEFT ELBOW D/T INCIDENT YESTERDAY. PATIENT REPORTS HE TOLD STAFF LAST NIGHT BUT NO XRAY WAS DONE. INFORMED DR. IVEY, ORDERED XRAY FOR PATIENT LEFT ELBOW.
== END 2025-03-02 11:02 | disposition short-term general hospital (02) ==
PROVIDERS: Emergency Provider Physician Assistant; PCP Electrodiagnostic Medicine
DX: R45.851 Suicidal ideations (principal); E05.90 Thyrotoxicosis, unspecified without thyrotoxic crisis or storm; I25.10 Atherosclerotic heart disease of native coronary artery without angina pectoris; Z85.038 Personal history of other malignant neoplasm of large intestine; J44.9 Chronic obstructive pulmonary disease, unspecified; E11.9 Type 2 diabetes mellitus without complications; E78.2 Mixed hyperlipidemia; I11.0 Hypertensive heart disease with heart failure; I50.9 Heart failure, unspecified
CPT/HCPCS: 36415; 73070; 80053; 80306; 80307; 81001; 84443; 85025; 87637; 93005; 99285; J9999

== ENCOUNTER → 2025-03-23 10:24 | Outpatient (BNVA) | payer MEDICARE, SELFPAY | PROVIDERS: PCP Electrodiagnostic Medicine; Visit Provider Podiatrist Foot & Ankle Surgery | DX: E11.42 Type 2 diabetes mellitus with diabetic polyneuropathy (principal); L60.3 Nail dystrophy; Z79.4 Long term (current) use of insulin | CPT/HCPCS: 11721; 99213 ==